=== PATIENT | female | born 1955 | race Caucasian/White ===

== ENCOUNTER 2017-01-06 03:52 | Emergency (ER) | payer OTHER, MEDICARE | END 2017-01-06 05:22 | disposition home or self-care (01) | LOC: D.ER 03:52 | DX: R10.9 Unspecified abdominal pain (principal); R11.10 Vomiting, unspecified; C53.9 Malignant neoplasm of cervix uteri, unspecified; F32.9 Major depressive disorder, single episode, unspecified; G47.00 Insomnia, unspecified ==

== ENCOUNTER 2017-01-11 09:01 | Observation (INO) | payer OTHER, MEDICARE ==
[~2017-01-11] VITALS: Ht 162.6 cm; Wt 75.9 kg
--- NOTE | ~2017-01-11 | OP ---
PATIENT NAME: BIENVENIDO AGUSTIN MEDICAL RECORD: [id number] :51 LOCATION:D.M2 D.2118 ADMISSION DATE:01/11/17 SURGEON: RICARDO LAWRENCE MD DATE OF OPERATION: 01/13/2017 PROCEDURE: EGD with biopsy and colonoscopy with polypectomy. INDICATIONS: Ms. Agustin is a 61-year-old woman with a history of Parkinson's with a brain stimulator and a history of gastric bypass, who presented with symptoms of nausea, vomiting and abdominal pain. Her abdominal pain has been primarily left upper quadrant of the abdomen. She had a recent hospitalization at [facility] for 10 days, had a workup that was nondiagnostic for pain. She had had a recent outpatient abdominal series and CT scan of the abdomen and pelvis that were negative for any acute findings. She presents for inpatient EGD and colonoscopy. PREMEDICATIONS: Total IV anesthesia (propofol 560 mg). INSTRUMENT: Olympus video gastroscope and Olympus video colonoscope. PROCEDURE AND FINDINGS: After receiving informed consent, Ms. Agustin 's posterior pharynx was anesthetized with Cetacaine spray. She was placed in left lateral decubitus position, sedated as per anesthesia. After achieving an adequate level of sedation, gastroscope was introduced per orally and advanced to the duodenum without difficulty. In the distal esophagus, the Z line was irregular in nature, suggestive of acid reflux and the lower third of the esophagus was biopsied. A small hiatal hernia was noted with gastric pouch, unremarkable mucosa without erythema or ulcers and the anastomosis with a small bowel was likewise unremarkable. Gastric pouch biopsies were obtained to rule out microscopic disease. She had 2 arms of small bowel continuous with the gastric bypass, suggestive of a Billroth II. Small bowel was biopsied in both arms of small bowel. Gastroscope was then withdrawn. She is prepared for colonoscopy. Digital rectal exam was performed that showed no external hemorrhoidal tags, fissures or fistulas, normal sphincter tone, no palpable rectal masses. Colonoscope was introduced per rectally and advanced to the cecum without difficulty. The cecum, IC valve, and appendiceal orifice were identified and appeared normal. As the colonoscope was withdrawn, careful inspection was made of the mari of the colon. Overall mucosa had normal vascular and fold pattern. There are a few diverticula seen scattered in the sigmoid colon, but no signs of diverticulitis. In the distal sigmoid colon, was a 0.5 cm sessile polyp removed with hot biopsy forcep technique. Retroflexion in the rectum showed a small anal tag. A fair to good prep was present. Ms. Agustin tolerated the procedure well, no immediate complications. ASSESSMENT: 1. Irregular Z-line suggestive of gastroesophageal reflux disease, status post esophageal biopsy. 2. Small hiatal hernia. 3. Status post gastric bypass. 4. Mild sigmoid diverticulosis coli without evidence of diverticulitis. 5. Sigmoid polyp. 6. Small anal tag. 7. No obvious upper or lower gastrointestinal etiology to explain abdominal OPERATIVE REPORT [id number] CHANDU AGUSTINTHIA pain, possibly secondary to adhesions. RECOMMENDATIONS: 1. Avoid aspirin, nonsteroidal anti-inflammatory drugs for 14 days post polypectomy. 2. Follow up histopathology. 3. Surgical consultation regarding abdominal pain and possibility of adhesions as a etiology. TRANSINT:[id number] Voice Confirmation ID: [id number] DOCUMENT ID: [id number] RICARDO LAWRENCE MD CC: VALDO PALACIO MD [id number] DICTATION DATE: 01/13/171734 PLASMA PROCESSOR: 01/14/17 0226 ADM IN [facility] [address] [place] [address]
[2017-01-11 09:34] LABS: BASOPHILS 0.4 % (0-2); HEMOGLOBIN 12.3 g/dL (12-16); IMMATURE GRANULOCYTES 0.1 % (0-5); LYMPHOCYTES 34.4 % (15-50); MCH 31.1 pg (26.0-34.0); MCHC 32.4 g/dL (31.0-37.0); MEAN PLATELET VOLUME 9.6 fL (7.4-10.4); MONOCYTES 11.5 % (2-11); NEUTROPHILS 51.6 % (40-80); PLATELET COUNT 341 10x3/uL (130-400); RBC 3.96 10x6/uL (4.00-5.40); RDW 13.6 % (11.5-14.5); WBC 7.4 10x3/uL (4.8-10.8)
[2017-01-11 10:10] LABS: ANION GAP 18.4 mmol/L (8-16); BILIRUBIN - TOTAL 0.42 mg/dL (0.2-1.3); CALCIUM 9.6 mg/dL (8.5-10.1); CARBON DIOXIDE 24.7 mmol/L (21.0-32.0); CREATININE - SERUM 0.9 mg/dL (0.6-1.3); POTASSIUM - SERUM 4.1 mmol/L (3.5-5.1); PROTEIN - SERUM 7.5 g/dL (6.4-8.2)
[2017-01-11 11:27] LABS: APPEARANCE HAZY (CLEAR); BILIRUBIN NEGATIVE (NEGATIVE); COLOR YELLOW (YELLOW); GLUCOSE NEGATIVE (NEGATIVE); KETONE NEGATIVE (NEGATIVE); LEUKOCYTE ESTERASE 2+ (NEGATIVE); NITRITE NEGATIVE (NEGATIVE); PROTEIN NEGATIVE (NEGATIVE); SPECIFIC GRAVITY 1.015 (1.005-1.020); UROBILINOGEN NORMAL (NORMAL)
[2017-01-11 11:28] LABS: BACTERIA FEW /hpf (NONE SEEN); EPITHELIAL CELLS 0-5 /hpf (0-5); RED CELLS - URINE 0-5 /hpf (0-5)
--- NOTE | 2017-01-11 14:58 | NUR ---
TRANSFER FROM ER BY STRETCHER. OREINTED TO ROOM. CALL LIGHT IN REACH. WILL CONT. PLAN OF CARE.
[2017-01-11] MEDS ORDERED: PROZAC20 MG PO (15:14)
[2017-01-11] MEDS ORDERED: SINEMET 25-1001 EACH PO (15:15)
[2017-01-11] MEDS ORDERED: REMERON30 MG PO (15:16)
[2017-01-11] MEDS ORDERED: REQUIP XL2 MG PO (15:16)
[2017-01-11] MEDS ORDERED: XANAX1 MG PO (15:17)
[2017-01-11] MEDS ORDERED: AMITIZA24 MCG PO (15:17)
[2017-01-11 15:27] VITALS: BP 136/88; BMI 27.3
--- NOTE | 2017-01-11 15:49 | NUR ---
BILAT SCD APPLYED.
[2017-01-11 21:27] VITALS: BP 161/62
[2017-01-12 01:46] VITALS: BP 137/75
[2017-01-12 06:04] LABS: BASOPHILS 0.4 % (0-2); EOSINOPHILS 1.6 % (0-7); HEMATOCRIT 33.6 % (36.0-48.0); HEMOGLOBIN 10.7 g/dL (12-16); IMMATURE GRANULOCYTES 0.2 % (0-5); LYMPHOCYTES 20.2 % (15-50); MCH 30.7 pg (26.0-34.0); MCHC 31.8 g/dL (31.0-37.0); MCV 96.3 fL (80.0-100.0); MEAN PLATELET VOLUME 9.3 fL (7.4-10.4); MONOCYTES 12.8 % (2-11); NEUTROPHILS 64.8 % (40-80); RBC 3.49 10x6/uL (4.00-5.40); RDW 13.7 % (11.5-14.5)
[2017-01-12 06:14] LABS: PLATELET COUNT 254 10x3/uL (130-400)
[2017-01-12 06:24] VITALS: BP 136/74
[2017-01-12 06:30] LABS: ALBUMIN 3.2 g/dL (3.4-5.0); ALKALINE PHOSPHATASE 109 U/L (46-116); ALT (SGPT) 12 U/L (10-68); BILIRUBIN - TOTAL 0.39 mg/dL (0.2-1.3); CALC OSMOLALITY 281 mosm/kg (275-300); CALCIUM 8.7 mg/dL (8.5-10.1); CARBON DIOXIDE 27.8 mmol/L (21.0-32.0); CHLORIDE - SERUM 106 mmol/L (98-107); CREATININE - SERUM 0.7 mg/dL (0.6-1.3); GLUCOSE 107 mg/dL (74-106); POTASSIUM - SERUM 3.9 mmol/L (3.5-5.1); PROTEIN - SERUM 5.9 g/dL (6.4-8.2); SODIUM 142 mmol/L (136-145); UREA NITROGEN 11 mg/dL (7-18); eGFR NON AFRICAN AMERICAN 90 mL/min (90-120)
[2017-01-12 08:00] VITALS: BP 130/62
[2017-01-12 09:31] VITALS: Ht 162.6 cm; Wt 75.9 kg
--- NOTE | 2017-01-12 11:22 | NUR ---
IV ACCESS-22 GAUGE INSERTED IN RIGHT HAND FOR ACCESS. YARELY SALGADO RN
--- NOTE | 2017-01-12 11:44 | NUR ---
IV STARTED TO LEFT WRIST BY YARELY OCAMPO. LINE IS PATENT.
[2017-01-12 11:59] VITALS: BP 115/67
[2017-01-12 15:53] VITALS: BP 112/54
--- NOTE | 2017-01-12 17:23 | NUR ---
CONSENTS SIGNED FOR EGD/COLONOSCPY.
[2017-01-12 21:07] VITALS: BP 139/876
[2017-01-13 01:38] VITALS: BP 103/59
[2017-01-13 05:32] VITALS: BP 115/66
[2017-01-13 05:48] LABS: BASOPHILS 0.4 % (0-2); EOSINOPHILS 2.3 % (0-7); HEMATOCRIT 30.1 % (36.0-48.0); HEMOGLOBIN 9.9 g/dL (12-16); IMMATURE GRANULOCYTES 0.2 % (0-5); LYMPHOCYTES 32.2 % (15-50); MCH 31.3 pg (26.0-34.0); MCHC 32.9 g/dL (31.0-37.0); MCV 95.3 fL (80.0-100.0); MEAN PLATELET VOLUME 9.3 fL (7.4-10.4); MONOCYTES 10.6 % (2-11); NEUTROPHILS 54.3 % (40-80); PLATELET COUNT 251 10x3/uL (130-400); RBC 3.16 10x6/uL (4.00-5.40); RDW 13.4 % (11.5-14.5); WBC 5.3 10x3/uL (4.8-10.8)
[2017-01-13 06:26] LABS: ALBUMIN 2.8 g/dL (3.4-5.0); ALKALINE PHOSPHATASE 99 U/L (46-116); ALT (SGPT) 11 U/L (10-68); BILIRUBIN - TOTAL 0.37 mg/dL (0.2-1.3); CARBON DIOXIDE 27.1 mmol/L (21.0-32.0); CHLORIDE - SERUM 107 mmol/L (98-107); CREATININE - SERUM 0.7 mg/dL (0.6-1.3); GLUCOSE 95 mg/dL (74-106); POTASSIUM - SERUM 3.6 mmol/L (3.5-5.1); PROTEIN - SERUM 5.3 g/dL (6.4-8.2); SODIUM 143 mmol/L (136-145); eGFR NON AFRICAN AMERICAN 90 mL/min (90-120)
[2017-01-13 06:27] LABS: CALC OSMOLALITY 281 mosm/kg (275-300); UREA NITROGEN 5 mg/dL (7-18)
[2017-01-13 08:00] VITALS: BP 127/58
[2017-01-13 12:00] VITALS: BP 145/59
[2017-01-13 15:59] VITALS: BP 139/80
--- NOTE | 2017-01-13 16:04 | NUR ---
LEAVING FOR GI LAB BY DHEERAJ.
--- NOTE | 2017-01-13 17:26 | NUR ---
1725 REPORT PHONED TO NORMA, TO 7372.
--- NOTE | 2017-01-13 17:39 | NUR ---
BACK FROM EGD. DIET AND MEDS RESUMED.
[2017-01-13 20:44] VITALS: BP 125/62
--- NOTE | 2017-01-14 00:15 | NUR ---
PT RESTING WELL, NO CHANGES NOTED IN ASSESSMENT. NO NEEDS VOICED. CALL LIGHT WITHIN REACH. WILL CONT TO MONITOR.
[2017-01-14 03:47] VITALS: BP 114/48
[2017-01-14 05:37] LABS: BASOPHILS 0.3 % (0-2); EOSINOPHILS 1.7 % (0-7); HEMATOCRIT 31.7 % (36.0-48.0); HEMOGLOBIN 10.2 g/dL (12-16); IMMATURE GRANULOCYTES 0.2 % (0-5); LYMPHOCYTES 28.8 % (15-50); MCH 30.5 pg (26.0-34.0); MCHC 32.2 g/dL (31.0-37.0); MCV 94.9 fL (80.0-100.0); MONOCYTES 9.7 % (2-11); NEUTROPHILS 59.3 % (40-80); PLATELET COUNT 244 10x3/uL (130-400); RBC 3.34 10x6/uL (4.00-5.40); RDW 13.5 % (11.5-14.5); WBC 6.4 10x3/uL (4.8-10.8)
[2017-01-14 06:28] LABS: ALBUMIN 2.8 g/dL (3.4-5.0); ALKALINE PHOSPHATASE 100 U/L (46-116); ALT (SGPT) 15 U/L (10-68); CALC OSMOLALITY 281 mosm/kg (275-300); CALCIUM 8.2 mg/dL (8.5-10.1); CHLORIDE - SERUM 106 mmol/L (98-107); CREATININE - SERUM 0.7 mg/dL (0.6-1.3); GLUCOSE 88 mg/dL (74-106); POTASSIUM - SERUM 3.3 mmol/L (3.5-5.1); PROTEIN - SERUM 5.5 g/dL (6.4-8.2); SODIUM 143 mmol/L (136-145); UREA NITROGEN 7 mg/dL (7-18); eGFR NON AFRICAN AMERICAN 90 mL/min (90-120)
[2017-01-14 08:41] VITALS: BP 133/70
--- NOTE | 2017-01-14 10:39 | NUR ---
TELEMETRY SR. UP AMBULATING HALLWAY. GAIT STEADY
[2017-01-14] MEDS ORDERED: MIRALAX17 GM PO (11:28)
--- NOTE | 2017-01-14 13:27 | NUR ---
IV AND TELEMETRY DCD. DC PLANS GIVEN. UNDERSTANDING VOICED. ESCORTED TO CAR BY W/C.
== END 2017-01-14 13:39 | disposition home or self-care (01) ==
LOC: D.ER 09:01 → D.M2 14:18 → OBSVTIME 14:18 → D.M2 14:18
PROVIDERS: Emergency Medicine Emergency Medical Services; ADMIT Family Medicine
DX: D12.5 Benign neoplasm of sigmoid colon (principal); K44.9 Diaphragmatic hernia without obstruction or gangrene; K57.90 Diverticulosis of intestine, part unspecified, without perforation or abscess without bleeding; K64.4 Residual hemorrhoidal skin tags; F41.9 Anxiety disorder, unspecified; F32.9 Major depressive disorder, single episode, unspecified; G20 Parkinson's disease; D64.9 Anemia, unspecified

== ENCOUNTER 2017-09-23 16:14 | Emergency (ER) | payer OTHER, MEDICARE ==
[2017-01-12 09:31] VITALS: BMI 27.3
[~2017-09-23 16:14] MED LIST: AMITIZA24 MCG PO; MIRALAX17 GM PO; PROZAC20 MG PO; REMERON30 MG PO; REQUIP XL2 MG PO; SINEMET 25-1001 EACH PO; XANAX1 MG PO
[2017-09-23 16:57] LABS: BASOPHILS 0.4 % (0-2); HEMATOCRIT 31.8 % (36.0-48.0); HEMOGLOBIN 9.9 g/dL (12-16); IMMATURE GRANULOCYTES 0.4 % (0-5); LYMPHOCYTES 19.3 % (15-50); MCH 26.8 pg (26.0-34.0); MCHC 31.1 g/dL (31.0-37.0); MCV 85.9 fL (80.0-100.0); MEAN PLATELET VOLUME 8.8 fL (7.4-10.4); MONOCYTES 13.3 % (2-11); NEUTROPHILS 64.6 % (40-80)
[2017-09-23 16:58] LABS: PLATELET COUNT 366 10x3/uL (130-400)
[2017-09-23 17:08] LABS: APTT 29.8 SECONDS (22.8-39.4); INR 0.89 (0.85-1.17); PROTIME 11.7 SECONDS (11.6-15.0)
[2017-09-23 17:20] LABS: ALBUMIN 3.9 g/dL (3.4-5.0); ANION GAP 12.2 mmol/L (8-16); BILIRUBIN - TOTAL 0.4 mg/dL (0.2-1.3); CALCIUM 8.6 mg/dL (8.5-10.1); CARBON DIOXIDE 27.5 mmol/L (21.0-32.0); CREATININE - SERUM 0.9 mg/dL (0.6-1.3); POTASSIUM - SERUM 4.7 mmol/L (3.5-5.1); PROTEIN - SERUM 6.9 g/dL (6.4-8.2)
[2017-09-23 17:59] LABS: CKMB 1.2 U/L (0.0-3.6); CREATINE KINASE 76 UL (21-215); PRO BNP 32 pg/mL (0-125)
[2017-09-23 18:04] LABS: TROPONIN-I < 0.017 ng/mL (0.000-0.060)
[2017-09-23 19:22] LABS: UDS - AMPHET NEGATIVE QUAL (NEGATIVE); UDS - BARB NEGATIVE QUAL (NEGATIVE); UDS - BENZO POSITIVE QUAL (NEGATIVE); UDS - COCAINE NEGATIVE QUAL (NEGATIVE); UDS - OPIATE NEGATIVE QUAL (NEGATIVE); UDS - PCP NEGATIVE QUAL (NEGATIVE); UDS - THC POSITIVE QUAL (NEGATIVE)
[2017-09-23 19:27] LABS: APPEARANCE CLOUDY (CLEAR); BILIRUBIN NEGATIVE (NEGATIVE); COLOR YELLOW (YELLOW); GLUCOSE NEGATIVE (NEGATIVE); KETONE NEGATIVE (NEGATIVE); NITRITE NEGATIVE (NEGATIVE); PROTEIN NEGATIVE (NEGATIVE); UROBILINOGEN NORMAL (NORMAL)
[2017-09-23 19:29] LABS: EPITHELIAL CELLS 0-5 /hpf (0-5); MUCUS <1+ /lpf (NONE SEEN); WHITE CELLS - URINE 0-5 /hpf (0-5)
[2017-09-23 19:30] LABS: BACTERIA MODERATE /hpf (NONE SEEN); RED CELLS - URINE 0-5 /hpf (0-5)
== END 2017-09-23 21:36 | disposition short-term general hospital (02) ==
LOC: D.ER 16:14
PROVIDERS: Family Medicine
DX: I63.9 Cerebral infarction, unspecified (principal); Z85.41 Personal history of malignant neoplasm of cervix uteri; R53.1 Weakness

== ENCOUNTER 2017-10-24 10:35 | Emergency (ER) | payer OTHER, MEDICARE ==
[2017-01-12 09:31] VITALS: BMI 27.3
[2017-10-24 11:10] LABS: BASOPHILS 0.7 % (0-2); EOSINOPHILS 4.1 % (0-7); HEMATOCRIT 33.3 % (36.0-48.0); IMMATURE GRANULOCYTES 0.2 % (0-5); MCH 25.6 pg (26.0-34.0); MCV 85.2 fL (80.0-100.0); MEAN PLATELET VOLUME 9.1 fL (7.4-10.4); MONOCYTES 12.7 % (2-11); NEUTROPHILS 44.3 % (40-80); PLATELET COUNT 340 10x3/uL (130-400); RBC 3.91 10x6/uL (4.00-5.40); RDW 15.4 % (11.5-14.5); WBC 5.6 10x3/uL (4.8-10.8)
[2017-10-24 11:21] LABS: INR 0.86 (0.85-1.17); PROTIME 11.4 SECONDS (11.6-15.0)
[2017-10-24 11:23] LABS: D-DIMER-QUANTITATIVE < 0.27 ug/mLFEU (0.20-0.54)
[2017-10-24 11:25] LABS: ALBUMIN 3.7 g/dL (3.4-5.0); ALKALINE PHOSPHATASE 166 U/L (46-116); ALT (SGPT) 21 U/L (10-68); BILIRUBIN - TOTAL 0.45 mg/dL (0.2-1.3); CALC OSMOLALITY 280 mosm/kg (275-300); CARBON DIOXIDE 27.3 mmol/L (21.0-32.0); CHLORIDE - SERUM 104 mmol/L (98-107); CREATININE - SERUM 0.8 mg/dL (0.6-1.3); GLUCOSE 92 mg/dL (74-106); POTASSIUM - SERUM 4.4 mmol/L (3.5-5.1); PROTEIN - SERUM 7.1 g/dL (6.4-8.2); SODIUM 140 mmol/L (136-145); UREA NITROGEN 18 mg/dL (7-18); eGFR NON AFRICAN AMERICAN 76 mL/min (90-120)
[2017-10-24 11:37] LABS: CKMB 0.5 U/L (0.0-3.6); CREATINE KINASE 68 UL (21-215); THYROID STIMULATING HORMONE 0.52 uIU/mL (0.36-3.74); TROPONIN-I < 0.017 ng/mL (0.000-0.060)
== END 2017-10-24 19:24 | disposition home or self-care (01) ==
LOC: D.ER 10:35
PROVIDERS: Family Medicine
DX: I69.354 Hemiplegia and hemiparesis following cerebral infarction affecting left non-dominant side (principal); R47.81 Slurred speech; Z85.41 Personal history of malignant neoplasm of cervix uteri

== ENCOUNTER 2017-11-23 12:19 | Emergency (ER) | payer OTHER, MEDICARE ==
[2017-01-12 09:31] VITALS: BMI 27.3
[2017-11-23 13:30] LABS: APPEARANCE CLEAR (CLEAR); BACTERIA FEW /hpf (NONE SEEN); BILIRUBIN NEGATIVE (NEGATIVE); COLOR YELLOW (YELLOW); EPITHELIAL CELLS 0-5 /hpf (0-5); GLUCOSE NEGATIVE (NEGATIVE); KETONE NEGATIVE (NEGATIVE); MUCUS <1+ /lpf (NONE SEEN); NITRITE NEGATIVE (NEGATIVE); PROTEIN NEGATIVE (NEGATIVE); RED CELLS - URINE OCC /hpf (0-5); SPECIFIC GRAVITY 1.015 (1.005-1.020); UROBILINOGEN NORMAL (NORMAL); WHITE CELLS - URINE 0-5 /hpf (0-5)
[2017-11-23 13:58] LABS: BASOPHILS 0.3 % (0-2); EOSINOPHILS 1.3 % (0-7); HEMATOCRIT 31.9 % (36.0-48.0); IMMATURE GRANULOCYTES 0.3 % (0-5); LYMPHOCYTES 29.9 % (15-50); MCH 25.3 pg (26.0-34.0); MCHC 31.3 g/dL (31.0-37.0); MCV 80.8 fL (80.0-100.0); MEAN PLATELET VOLUME 8.8 fL (7.4-10.4); MONOCYTES 12.1 % (2-11); NEUTROPHILS 56.1 % (40-80); PLATELET COUNT 314 10x3/uL (130-400); RBC 3.95 10x6/uL (4.00-5.40); RDW 15.5 % (11.5-14.5); WBC 6.9 10x3/uL (4.8-10.8)
[2017-11-23 14:15] LABS: ALBUMIN 4.1 g/dL (3.4-5.0); ANION GAP 13.3 mmol/L (8-16); BILIRUBIN - TOTAL 0.42 mg/dL (0.2-1.3); CALCIUM 9.2 mg/dL (8.5-10.1); CARBON DIOXIDE 27.9 mmol/L (21.0-32.0); CREATININE - SERUM 0.9 mg/dL (0.6-1.3); POTASSIUM - SERUM 4.2 mmol/L (3.5-5.1); PROTEIN - SERUM 7.5 g/dL (6.4-8.2)
== END 2017-11-23 16:33 | disposition home or self-care (01) ==
LOC: D.ER 12:19
PROVIDERS: Family Medicine
DX: R10.9 Unspecified abdominal pain (principal); Z85.41 Personal history of malignant neoplasm of cervix uteri; Z86.73 Personal history of transient ischemic attack (TIA), and cerebral infarction without residual deficits

== ENCOUNTER 2017-11-24 23:42 | Emergency (ER) | payer OTHER, MEDICARE ==
[2017-01-12 09:31] VITALS: BMI 27.3
[2017-11-25 00:52] LABS: BASOPHILS 0.6 % (0-2); EOSINOPHILS 1.2 % (0-7); HEMATOCRIT 31.6 % (36.0-48.0); HEMOGLOBIN 9.7 g/dL (12-16); IMMATURE GRANULOCYTES 0.1 % (0-5); LYMPHOCYTES 24.6 % (15-50); MCHC 30.7 g/dL (31.0-37.0); MCV 81.4 fL (80.0-100.0); MEAN PLATELET VOLUME 8.8 fL (7.4-10.4); MONOCYTES 10.4 % (2-11); NEUTROPHILS 63.1 % (40-80); PLATELET COUNT 311 10x3/uL (130-400); RBC 3.88 10x6/uL (4.00-5.40); RDW 15.9 % (11.5-14.5); WBC 6.8 10x3/uL (4.8-10.8)
[2017-11-25 00:59] LABS: ALBUMIN 3.8 g/dL (3.4-5.0); ALKALINE PHOSPHATASE 166 U/L (46-116); ALT (SGPT) 29 U/L (10-68); AMYLASE - SERUM 171 U/L (25-115); CALC OSMOLALITY 283 mosm/kg (275-300); CARBON DIOXIDE 28.2 mmol/L (21.0-32.0); CHLORIDE - SERUM 103 mmol/L (98-107); CREATININE - SERUM 0.8 mg/dL (0.6-1.3); GLUCOSE 126 mg/dL (74-106); LIPASE 225 U/L (73-393); POTASSIUM - SERUM 4.1 mmol/L (3.5-5.1); PROTEIN - SERUM 7.1 g/dL (6.4-8.2); SODIUM 142 mmol/L (136-145); UREA NITROGEN 10 mg/dL (7-18); eGFR NON AFRICAN AMERICAN 76 mL/min (90-120)
[2017-11-25 01:55] LABS: APPEARANCE CLEAR (CLEAR); BILIRUBIN NEGATIVE (NEGATIVE); COLOR YELLOW (YELLOW); GLUCOSE 100 mg/dL (NEGATIVE); KETONE NEGATIVE (NEGATIVE); NITRITE NEGATIVE (NEGATIVE); PROTEIN NEGATIVE (NEGATIVE); UROBILINOGEN NORMAL (NORMAL)
[2017-11-25 01:56] LABS: BACTERIA MODERATE /hpf (NONE SEEN); EPITHELIAL CELLS 0-5 /hpf (0-5); RED CELLS - URINE 0-5 /hpf (0-5)
[2017-11-26] MEDS ORDERED: LEVAQUIN750 MG PO (21:37)
[2017-11-26] MEDS ORDERED: NEURONTIN 300300 MG PO (21:37)
[2017-11-26] MEDS ORDERED: PEPCID40 MG PO (21:38)
== END 2017-11-25 04:15 | disposition home or self-care (01) ==
LOC: D.ER 23:42
PROVIDERS: Family Medicine
DX: R10.9 Unspecified abdominal pain (principal); Z85.41 Personal history of malignant neoplasm of cervix uteri; Z86.73 Personal history of transient ischemic attack (TIA), and cerebral infarction without residual deficits

== ENCOUNTER 2017-11-26 16:45 | Inpatient (IN) | payer OTHER, MEDICARE ==
[~2017-11-26] VITALS: Ht 162.6 cm; Wt 75.4 kg
[2017-11-26 17:47] LABS: BASOPHILS 0.4 % (0-2); EOSINOPHILS 1.6 % (0-7); HEMATOCRIT 28.7 % (36.0-48.0); HEMOGLOBIN 8.8 g/dL (12-16); IMMATURE GRANULOCYTES 0.2 % (0-5); LYMPHOCYTES 27.6 % (15-50); MCH 24.9 pg (26.0-34.0); MCHC 30.7 g/dL (31.0-37.0); MCV 81.3 fL (80.0-100.0); MEAN PLATELET VOLUME 8.7 fL (7.4-10.4); MONOCYTES 14.3 % (2-11); NEUTROPHILS 55.9 % (40-80); PLATELET COUNT 267 10x3/uL (130-400); RBC 3.53 10x6/uL (4.00-5.40); RDW 16.1 % (11.5-14.5); WBC 5.5 10x3/uL (4.8-10.8)
[2017-11-26 18:04] LABS: ALBUMIN 3.4 g/dL (3.4-5.0); ANION GAP 13.4 mmol/L (8-16); BILIRUBIN - TOTAL 0.4 mg/dL (0.2-1.3); POTASSIUM - SERUM 4.4 mmol/L (3.5-5.1); PROTEIN - SERUM 6.5 g/dL (6.4-8.2)
[2017-11-26] MEDS ORDERED: LEVAQUIN750 MG PO (21:37)
[2017-11-26] MEDS ORDERED: NEURONTIN 300300 MG PO (21:37)
[2017-11-26] MEDS ORDERED: PEPCID40 MG PO (21:38)
[2017-11-27] VITALS (7 sets, daily range): BP systolic 107–136; BP diastolic 56–67; BMI 28.4
[2017-11-27 05:40] LABS: BASOPHILS 0.5 % (0-2); EOSINOPHILS 2.6 % (0-7); HEMATOCRIT 27.5 % (36.0-48.0); HEMOGLOBIN 8.3 g/dL (12-16); LYMPHOCYTES 51.4 % (15-50); MCH 24.8 pg (26.0-34.0); MCHC 30.2 g/dL (31.0-37.0); MCV 82.1 fL (80.0-100.0); MEAN PLATELET VOLUME 9.2 fL (7.4-10.4); MONOCYTES 15.5 % (2-11); PLATELET COUNT 264 10x3/uL (130-400); RBC 3.35 10x6/uL (4.00-5.40); RDW 16.2 % (11.5-14.5); WBC 4.3 10x3/uL (4.8-10.8)
[2017-11-27 06:10] LABS: ANION GAP 9.5 mmol/L (8-16); BILIRUBIN - TOTAL 0.4 mg/dL (0.2-1.3); CALCIUM 8.4 mg/dL (8.5-10.1); CARBON DIOXIDE 30.4 mmol/L (21.0-32.0); CREATININE - SERUM 0.9 mg/dL (0.6-1.3); POTASSIUM - SERUM 3.9 mmol/L (3.5-5.1); PROTEIN - SERUM 5.9 g/dL (6.4-8.2)
[2017-11-27 13:57] LABS: APPEARANCE CLEAR (CLEAR); BILIRUBIN NEGATIVE (NEGATIVE); COLOR YELLOW (YELLOW); GLUCOSE NEGATIVE (NEGATIVE); KETONE SMALL mg/dL (NEGATIVE); NITRITE NEGATIVE (NEGATIVE); PROTEIN NEGATIVE (NEGATIVE); UROBILINOGEN NORMAL (NORMAL)
[2017-11-27 14:00] LABS: BACTERIA FEW /hpf (NONE SEEN); EPITHELIAL CELLS 0-5 /hpf (0-5); RED CELLS - URINE OCC /hpf (0-5); WHITE CELLS - URINE 0-5 /hpf (0-5)
[2017-11-28] VITALS (7 sets, daily range): BP systolic 93–176; BP diastolic 41–90
[2017-11-28 04:58] LABS: BASOPHILS 0.3 % (0-2); EOSINOPHILS 0.5 % (0-7); HEMATOCRIT 30.9 % (36.0-48.0); HEMOGLOBIN 9.4 g/dL (12-16); IMMATURE GRANULOCYTES 0.1 % (0-5); LYMPHOCYTES 13.5 % (15-50); MCHC 30.4 g/dL (31.0-37.0); MCV 82.2 fL (80.0-100.0); MEAN PLATELET VOLUME 8.8 fL (7.4-10.4); MONOCYTES 8.4 % (2-11); NEUTROPHILS 77.2 % (40-80); PLATELET COUNT 244 10x3/uL (130-400); RBC 3.76 10x6/uL (4.00-5.40)
[2017-11-28 05:00] LABS: WBC 7.9 10x3/uL (4.8-10.8)
[2017-11-28 05:22] LABS: ALBUMIN 3.5 g/dL (3.4-5.0); ALKALINE PHOSPHATASE 148 U/L (46-116); ALT (SGPT) 29 U/L (10-68); AMYLASE - SERUM 59 U/L (25-115); BILIRUBIN - TOTAL 0.59 mg/dL (0.2-1.3); CALC OSMOLALITY 280 mosm/kg (275-300); CALCIUM 8.6 mg/dL (8.5-10.1); CARBON DIOXIDE 26.5 mmol/L (21.0-32.0); CHLORIDE - SERUM 102 mmol/L (98-107); CREATININE - SERUM 0.8 mg/dL (0.6-1.3); GLUCOSE 109 mg/dL (74-106); LIPASE 254 U/L (73-393); POTASSIUM - SERUM 3.4 mmol/L (3.5-5.1); PROTEIN - SERUM 6.7 g/dL (6.4-8.2); SODIUM 141 mmol/L (136-145); UREA NITROGEN 9 mg/dL (7-18); eGFR NON AFRICAN AMERICAN 76 mL/min (90-120)
[2017-11-29 00:30] VITALS: BP 120/64
[2017-11-29 04:30] VITALS: BP 151/67
[2017-11-29 05:08] LABS: BASOPHILS 0.3 % (0-2); EOSINOPHILS 0.7 % (0-7); HEMATOCRIT 30.1 % (36.0-48.0); HEMOGLOBIN 9.3 g/dL (12-16); IMMATURE GRANULOCYTES 0.1 % (0-5); LYMPHOCYTES 21.3 % (15-50); MCHC 30.9 g/dL (31.0-37.0); MCV 80.9 fL (80.0-100.0); MEAN PLATELET VOLUME 9.1 fL (7.4-10.4); MONOCYTES 13.8 % (2-11); NEUTROPHILS 63.8 % (40-80); PLATELET COUNT 262 10x3/uL (130-400); RBC 3.72 10x6/uL (4.00-5.40); RDW 16.3 % (11.5-14.5); WBC 7.3 10x3/uL (4.8-10.8)
[2017-11-29 05:38] LABS: ALBUMIN 3.6 g/dL (3.4-5.0); ALKALINE PHOSPHATASE 142 U/L (46-116); ALT (SGPT) 27 U/L (10-68); BILIRUBIN - TOTAL 0.56 mg/dL (0.2-1.3); CALC OSMOLALITY 277 mosm/kg (275-300); CALCIUM 8.6 mg/dL (8.5-10.1); CARBON DIOXIDE 27.4 mmol/L (21.0-32.0); CHLORIDE - SERUM 102 mmol/L (98-107); CREATININE - SERUM 0.7 mg/dL (0.6-1.3); GLUCOSE 124 mg/dL (74-106); POTASSIUM - SERUM 3.5 mmol/L (3.5-5.1); PROTEIN - SERUM 6.7 g/dL (6.4-8.2); SODIUM 140 mmol/L (136-145); UREA NITROGEN 7 mg/dL (7-18); eGFR NON AFRICAN AMERICAN 89 mL/min (90-120)
[2017-11-29 08:21] VITALS: BP 136/58
[2017-11-29 12:15] VITALS: BP 171/69
[2017-11-29 12:28] VITALS: Ht 162.6 cm; Wt 75.4 kg
[2017-11-29 17:24] VITALS: BP 143/69
[2017-11-29 20:00] VITALS: BP 139/64
[2017-11-30 06:46] VITALS: BP 151/58
[2017-11-30 08:51] VITALS: BP 142/73
[2017-11-30 17:28] VITALS: BP 143/72
[2017-11-30 20:00] VITALS: BP 157/70
[2017-12-01] VITALS: BP 131/61
[2017-12-01 04:00] VITALS: BP 140/66
[2017-12-01 06:05] LABS: BASOPHILS 0.4 % (0-2); EOSINOPHILS 0.9 % (0-7); HEMATOCRIT 28.9 % (36.0-48.0); IMMATURE GRANULOCYTES 0.1 % (0-5); LYMPHOCYTES 18.5 % (15-50); MCH 25.3 pg (26.0-34.0); MCHC 31.1 g/dL (31.0-37.0); MCV 81.2 fL (80.0-100.0); MEAN PLATELET VOLUME 9.2 fL (7.4-10.4); MONOCYTES 13.7 % (2-11); NEUTROPHILS 66.4 % (40-80); PLATELET COUNT 279 10x3/uL (130-400); RBC 3.56 10x6/uL (4.00-5.40); RDW 16.4 % (11.5-14.5); WBC 6.9 10x3/uL (4.8-10.8)
[2017-12-01 06:15] LABS: % SATURATION 4 % (15-55); IRON 21 ug/dl (35-150); TOTAL IRON BIND CAPACITY 450 ug/dl (260-445); UNSAT IRON BIND CAPACITY 429 ug/dl (150-375)
[2017-12-01 06:20] LABS: ALBUMIN 3.6 g/dL (3.4-5.0); ALKALINE PHOSPHATASE 138 U/L (46-116); ALT (SGPT) 25 U/L (10-68); AMYLASE - SERUM 34 U/L (25-115); CALC OSMOLALITY 277 mosm/kg (275-300); CALCIUM 8.5 mg/dL (8.5-10.1); CARBON DIOXIDE 28.2 mmol/L (21.0-32.0); CHLORIDE - SERUM 101 mmol/L (98-107); CREATININE - SERUM 0.8 mg/dL (0.6-1.3); FERRITIN 9 ng/mL (3-244); GLUCOSE 111 mg/dL (74-106); LIPASE 199 U/L (73-393); POTASSIUM - SERUM 3.2 mmol/L (3.5-5.1); PROTEIN - SERUM 6.9 g/dL (6.4-8.2); SODIUM 140 mmol/L (136-145); UREA NITROGEN 8 mg/dL (7-18); eGFR NON AFRICAN AMERICAN 76 mL/min (90-120)
[2017-12-01 08:00] VITALS: BP 151/82
[2017-12-01 12:00] VITALS: BP 124/45
[2017-12-01 17:09] VITALS: BP 165/73
[2017-12-01 21:01] VITALS: BP 137/67
[2017-12-02 06:04] LABS: BASOPHILS 0.3 % (0-2); EOSINOPHILS 1.6 % (0-7); HEMOGLOBIN 7.8 g/dL (12-16); MCH 25.2 pg (26.0-34.0); MCHC 31.2 g/dL (31.0-37.0); MCV 80.9 fL (80.0-100.0); MEAN PLATELET VOLUME 9.6 fL (7.4-10.4); MONOCYTES 15.3 % (2-11); NEUTROPHILS 53.8 % (40-80); PLATELET COUNT 247 10x3/uL (130-400); RBC 3.09 10x6/uL (4.00-5.40); RDW 16.8 % (11.5-14.5); WBC 6.1 10x3/uL (4.8-10.8)
[2017-12-02 06:22] VITALS: BP 109/55
[2017-12-02 06:47] LABS: ALBUMIN 3.1 g/dL (3.4-5.0); ALKALINE PHOSPHATASE 120 U/L (46-116); ALT (SGPT) 22 U/L (10-68); CALC OSMOLALITY 279 mosm/kg (275-300); CALCIUM 8.5 mg/dL (8.5-10.1); CARBON DIOXIDE 29.1 mmol/L (21.0-32.0); CHLORIDE - SERUM 104 mmol/L (98-107); CREATININE - SERUM 0.7 mg/dL (0.6-1.3); GLUCOSE 106 mg/dL (74-106); PROTEIN - SERUM 5.8 g/dL (6.4-8.2); SODIUM 142 mmol/L (136-145); eGFR NON AFRICAN AMERICAN 89 mL/min (90-120)
[2017-12-02 06:48] LABS: UREA NITROGEN 5 mg/dL (7-18)
[2017-12-02 09:17] LABS: FOLATE (FOLIC ACID) - SERUM >20.0 ng/mL (>3.0)
[2017-12-02 11:40] VITALS: BP 137/67
[2017-12-02 16:48] VITALS: BP 122/60
[2017-12-02 22:13] VITALS: BP 144/70
[2017-12-03 01:26] VITALS: BP 138/70
[2017-12-03 05:00] VITALS: BP 145/74
[2017-12-03 08:38] VITALS: BP 122/68
[2017-12-03 11:40] VITALS: BP 127/54
[2017-12-03] MEDS ORDERED: AMITIZA8 MCG PO (12:38)
[2017-12-03] MEDS ORDERED: HYDROCODON-ACE1 EAC7 PO (13:44)
== END 2017-12-03 15:29 | disposition home or self-care (01) | DRG 378 ==
LOC: D.ER 16:45 → D.M2 20:29
PROVIDERS: Family Medicine; Internal Medicine Nephrology
PROC: 0DBA8ZX Excision of Jejunum, Via Natural or Artificial Opening Endoscopic, Diagnostic (ICD-10-PCS; principal; 2017-12-02)
PROC: 0DB78ZX Excision of Stomach, Pylorus, Via Natural or Artificial Opening Endoscopic, Diagnostic (ICD-10-PCS; 2017-12-02)
DX: K92.2 Gastrointestinal hemorrhage, unspecified (principal); K56.7 Ileus, unspecified; D62 Acute posthemorrhagic anemia; K25.9 Gastric ulcer, unspecified as acute or chronic, without hemorrhage or perforation; G20 Parkinson's disease; D50.9 Iron deficiency anemia, unspecified; F41.8 Other specified anxiety disorders; Z85.41 Personal history of malignant neoplasm of cervix uteri; Z72.0 Tobacco use; Z86.73 Personal history of transient ischemic attack (TIA), and cerebral infarction without residual deficits

== ENCOUNTER 2017-12-15 10:17 | Inpatient (IN) | payer OTHER, MEDICARE ==
[~2017-12-15] VITALS: Ht 162.6 cm; Wt 80.7 kg
--- NOTE | ~2017-12-15 | OP ---
PATIENT NAME: BIENVENIDO ROGERS MEDICAL RECORD: [id number] :51 LOCATION:D.[facility] D.2304 ADMISSION DATE:12/15/17 SURGEON: KIM HUGHSE MD DATE OF OPERATION: 01/25/2018 PREOPERATIVE DIAGNOSES: 1. Respiratory failure, on the ventilator. 2. Parkinson's disease. 3. Ischemic bowel, status post partial colectomy and colostomy. 4. Open abdominal wound. 5. Pneumonia. POSTOPERATIVE DIAGNOSES: 1. Respiratory failure, on the ventilator. 2. Parkinson's disease. 3. Ischemic bowel, status post partial colectomy and colostomy. 4. Open abdominal wound. 5. Pneumonia. PROCEDURE: An 8-Yemeni percutaneous tracheostomy tube placement. SURGEON: Kim Hughes MD REPORT OF PROCEDURE: The patient's neck was prepped and draped in sterile fashion. The indwelling endotracheal tube was cannulated with a bronchoscope. We pulled the endotracheal tube back to its most superior portion. A skin incision was made on the inferior aspect of the neck longitudinally. I found couple of rings below the cricopharyngeal space and inserted the Angiocath needle under direct visualization. Through this, the wire was advanced with ease. Over this wire, the dilator was placed followed by the white Rhino dilator. We then advanced the 8-Yemeni tracheostomy tube into position under direct visualization. This was then hooked up to the respirator. The tracheostomy was sutured down on all 4 sides using interrupted 2-0 Prolenes. COMPLICATIONS: None. CONDITION: Stable. ANESTHESIA: General endotracheal. BLOOD LOSS: 30 mL. TRANSINT:[id number] Voice Confirmation ID: [id number] DOCUMENT ID: [id number] KIM HUGHES MD at 1617 CC: [id number] DICTATION DATE: 01/25/18 1407 DIE OUT WORKER: 01/25/18 1445 ADM IN [place] [id number] [place] [address]
--- NOTE | ~2017-12-15 | CN ---
PATIENT NAME:BIENVENIDO AGUSTIN MEDICAL RECORD: [id number] : 51 LOCATION:ELEN.2304 ADMIT DATE: 12/15/17 ACCOUNT: [id number] CONSULTING PHYSICIAN: DIETER GAONA MD REFERRING PHYSICIAN: MILADIS BARKER MD DATE OF CONSULTATION: 01/08/2018 CONSULT REQUESTING PHYSICIAN: Liborio Hughes MD REASON FOR CONSULTATION: Vent management. HISTORY OF PRESENT ILLNESS: Ms. Agustin is a 62-year-old female who was initially admitted with GI bleed and severe anemia. The patient was not doing well. She was in liver failure as well as acute renal failure. The patient was taken to the OR and found out that she has perforated left colon with peritonitis. 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 The patient underwent partial colectomy, laparotomy, and colostomy. REVIEW OF SYSTEMS: Mainly in the history of present illness. PAST MEDICAL HISTORY: 1. Parkinson disease. 2. History of gastrointestinal bleed. 3. Anxiety and depression. PAST SURGICAL HISTORY: She has a gastric bypass surgery, brain stimulator placement for Parkinson disease. ALLERGIES: SHE IS ALLERGIC TO SULFA AND CODEINE. PRESENT MEDICATIONS: On Sonar.me is reviewed. PERSONAL AND SOCIAL HISTORY: She is an occasional drinker. FAMILY HISTORY: Noncontributory. PHYSICAL EXAMINATION: GENERAL: Now, the patient is orally intubated and sedated. VITAL SIGNS: The blood pressure 135/70, pulse is 95, respiration is 19, temperature 99.3, SPO2 is 94%. She is on assist control mechanical ventilation. HEENT: Conjunctiva is pale. Sclerae not icteric. NECK: Supple, no JVD. CHEST: There is no wheezing. There are bibasilar crackles. HEART: Rate and rhythm regular, normal sound, no murmur. ABDOMEN: Soft. Colostomy in place. Bowel sounds are absent. RECTAL: Deferred. EXTREMITIES: No cyanosis, no clubbing and 1+ pedal edema. SKIN: Warm, normal turgor. CENTRAL NERVOUS SYSTEM: The patient is awake and alert. There is no obvious cranial nerve abnormality. The gait was not tested. LABORATORY DATA: CBC: The WBC is 9.6, hemoglobin 9, hematocrit 28, the platelet count is 382. Chemistry: Sodium 148, potassium is 3.9, BUN is 12, creatinine is 1.8. Serum glucose is 111. Albumin is 2.9. CONSULT REPORT [id number] BIENVENIDO AGUSTIN IMPRESSION: 1. Acute hypoxic respiratory failure post-procedure. 2. Pneumonia, bibasilar, most likely hospital-acquired pneumonia, possible associated atelectasis. 3. Peritonitis secondary to perforated bowel and the fistula and status post laparotomy, partial colectomy and colostomy. 4. Gastrointestinal bleed. 5. Anemia. 6. Parkinson disease. 7. Acute renal failure. RECOMMENDATION: 1. We will continue mechanical ventilation, adjust the setting. 2. DVT and GI bleed, ulcer prevention. 3. Albuterol ipratropium nebulizer. 4. Continue vancomycin, Zosyn, and Flagyl. 5. Check the sputum for culture and sensitivity. 6. Continue TPN. 7. Follow up labs and chest radiograph. Dr. Hughes, thank you for involving me in the care of Ms. Agustin. The critical care time is 50 minutes. TRANSINT:[id number] Voice Confirmation ID: [id number] DOCUMENT ID: [id number] DIETER GAONA MD at 1806 CC: LIBORIO HUGHES [id number] DICTATION DATE: 01/08/18 135 MANAGER RELOCATION: 01/08/18 7997 ADM IN [place] [id number] [place] [address]
--- NOTE | ~2017-12-15 | OP ---
PATIENT NAME: BIENVENIDO ROGERS MEDICAL RECORD: [id number] :51 LOCATION:.[facility] D.2304 ADMISSION DATE:12/15/17 SURGEON: LIBORIO HUGHES MD DATE OF OPERATION: 01/08/2018 PREOPERATIVE DIAGNOSES: 1. Acute abdomen. 2. Left flank abscess. 3. Sepsis. 4. Left pleural effusion. 5. Parkinson disease. 6. Acute renal failure. POSTOPERATIVE DIAGNOSES: 1. Acute abdomen. 2. Left flank abscess. 3. Sepsis. 4. Left pleural effusion. 5. Parkinson disease. 6. Acute renal failure. 7. Left colon necrosis. PROCEDURES: 1. Left flank I&D with cultures. 2. Exploratory laparotomy. 3. Small-bowel resection. 4. Left hemicolectomy. 5. Transverse colostomy. SURGEON: Liborio Hughes MD REPORT OF PROCEDURE: The patient was placed on the right flank and the left flank was prepped and draped in sterile fashion. A skin incision was initially made over the left flank, which had some dense edema and mild erythema. I eventually was able to find a pocket, which was more posterior, so another separate incision was made over top of this. Through this incision, I was able to penetrate down into the patient's peritoneal cavity and there was feculent material visible. As I suctioned out the material, I pulled up this long tubular structure that was completely necrotic tissue, which I was concerned might be the colon. We irrigated out the wound thoroughly with normal saline. We then packed the wound with a lap pad and placed the patient in the supine position. The abdomen was prepped and draped in sterile fashion. A midline incision was performed. There were some adhesions present from previous exploratory laparotomy a little over 2 weeks prior. We had 2 enterotomies which occurred 1 was at the previous enterotomy site, which had been repaired. These 2 enterotomy sites were repaired by a small bowel resection using a #55 blue load DERECK stapler followed by a [id number] anastomosis with a #55 blue load DERECK stapler and closure with a #30 blue-load TA stapler. We oversewed the staple lines and inspected these at the end of the case and they were noted to be holding appropriately with no sign of a leak. We continued our dissection to the left lateral abdomen. I was able to find the remnants of the patient's colon. The distal transverse colon had some perforations present consistent OPERATIVE REPORT [id number] BIENVENIDO ROGERS with a recent necrosis. I was able to mobilize this distal transverse colon medially, taking down any adhesions using electrocautery or clamp and tie technique. We eventually were able to get the transverse colon back to where he had good viable tissue and this was transected with a #55 blue load DERECK stapler. This was left in place to be pulled up for a colostomy later. The left colon was inspected and noted to be almost completely necrosed on the lateral aspect. I continued my dissection down towards the sigmoid colon and rectum. The sigmoid colon appeared to be viable distally. We transected this distal sigmoid colon with a #55 blue load DERECK stapler and then took down the mesentery with sequential clamp and tie technique. This portion of the bowel was sent off for permanent specimen. We then marked the distal aspect of the bowel using a 2-0 Prolene. We irrigated out the abdomen thoroughly with normal saline and 19-Citizen Of [place] Tyler drains were placed in the left pericolic gutter and the left subphrenic space. These were sutured into place with 2-0 nylons. We inspected the staple lines of our anastomosis one last time and these appear to be viable with no signs of necrosis and no signs of any leakage. An opening was placed in the right upper quadrant through the rectus musculature to house our colostomy. The transverse colon was eviscerated through this opening. We then closed the midline fascia using running #1 loop PDS times 2 and the wound was left open. The colostomy was matured with multiple interrupted 4-0 Vicryls and a colostomy bag was applied. The midline wound was dressed with a damp Kerlix and covered with 4 x 4s the left flank wound was packed with damp Kerlix and covered with 4 x 4s. COMPLICATIONS: None. CONDITION: Fair. ANESTHESIA: General endotracheal. BLOOD LOSS: 300 mL. TRANSINT:[id number] Voice Confirmation ID: [id number] DOCUMENT ID: [id number] LIBORIO HUGHES MD at 1031 CC: [id number] DICTATION DATE: 01/08/18 1304 YARD CLEANER: 01/08/18 2340 ADM IN [place] [id number] [place] [address]
--- NOTE | ~2017-12-15 | OP ---
PATIENT NAME: BIENVENIDO ROGERS MEDICAL RECORD: [id number] :51 LOCATION:[facility] D.2304 ADMISSION DATE:12/15/17 SURGEON: DIETER GAONA MD DATE OF OPERATION: 01/11/2018 PROCEDURE: Fiberoptic bronchoscopy. REASON FOR CONSULTATION: Worsening bibasilar atelectasis. Fiberoptic bronchoscopy was carried out to inspect the airway for mucus plugging as well as to obtain culture and sensitivity for worsening leukocytosis. PROCEDURE IN DETAIL: The patient is orally intubated. The fiberoptic bronchoscope was passed through the ET tube. The huma was sharp. There was thick yellowish secretion in the right main bronchus and subsegments. The bronchitic changes bled easily by touching with the bronchoscope. There is no endobronchial lesion seen in the right upper lobe, right middle lobe, right lower lobe segments. The left main bronchus was normal. There was also thick yellow secretion. The left upper lobe lingula, left lower lobe within normal range. No endobronchial lesion was seen. Specimen washing was obtained for routine culture sensitivity AB and fungus and cytology. The patient was monitored throughout the procedure and tolerated it well. TRANSINT:[id number] Voice Confirmation ID: [id number] DOCUMENT ID: [id number] DIETER GAONA MD at 1806 CC: [id number] DICTATION DATE: 01/11/18 1135 ELECTROMAGNET CRANE OPERATOR: 01/11/18 1216 ADM IN [place] [id number] [place] [address]
--- NOTE | ~2017-12-15 | HEMODYNAMI ---
PATIENT:BIENVENIDO ROGERS MEDICAL RECORD: [id number] : 51 LOCATION:[facility] ADMISSION DATE: 12/15/17 Generatedon:12/16/201717:06 Patient name: BIENVENIDO ROGERS Patient #: [id number] SSN: DO B: 1955 Date of study: 12/16/2017 Page: Of Hemodynamic Procedure Report Patient Data Patient Demographics Procedure consent was obtained First Name: BIENVENIDO Gender: Female Last Name: SUE : 1955 Patient #: [id number] Age: 62 year(s) Race: Unknown Additional ID: [id number] Contact details Address: [address] [place] [address] State: [place] City: [facility] [place] Zip code: [address] Past Medical History Allergies Allergen Reaction Date Comments Reported Sulfa drugs 12/16/2017 Admission Admission Data Admission Date: 12/15/2017 Admission Time: 12:00 Room #: Deja7 Weight (lbs.): 165 Weight (kg.): 74.84 Procedure Procedure Types Cath Procedure Peripheral Cath Diagnostic Procedure Cath Peripheral Abd/Extremity Visceral/Mesenteric Mesenteric Arteriogram (Abd Artery) Procedure Description Procedure Date Procedure Date: 12/16/2017 Procedure Start Time: 15:50 Procedure Staff Name Function Mali Forte RT Track Maintainer Mali Forte RT Monitor Anselmo Adams RT Scrub Elia Liao COLLISION ESTIMATOR Additional personnel Keshawn Albrecht MD Performing Physician Snehal Chacko RN Nurse Malou Mackey RN Nurse Procedure Data Cath Procedure Fluoroscopy Diagnostic fluoroscopy Total fluoroscopy Time: 8.9 time: 8.9 min min Diagnostic fluoroscopy Total fluoroscopy dose: 729 dose: 729 mGy mGy Contrast Material Contrast Material Type Amount (ml) Isovue 300 125 Diagnostic catheters Device Type Used For End Catheter Placement Merit Impress 5Fr SIM 1 Catheter ([id number]) Angiodynamics SOS OMNI 2 NON B 5FR 65CM catheter ([id number]) Procedure Medications Medication Administration Route Dosage Lidocaine 1% added to field 20 Heparin Flush Bag added to field 3 bags (1000units/500ml NS) Oxygen NC 3 l/min Hemodynamics Rest Heart Rate: 82 (bpm) Snapshots Pre Cath Intra NCS Post Cath Vital Signs Time Heart Resp SPO2 etCO2 NIBP (mmHg) Rhythm Pain Status Sedation Rate (ipm) (%) (mmHg) Level (bpm) 15:00:53 95 25 26.2 110/73(92) NSR 0 (11) , No 10(A) pain 15:04:59 99 19 99 29.2 127/74(96) NSR 0 (11) , No 10(A) pain 15:08:59 96 18 98 26.2 No Cuff NSR 0 (11) , No 10(A) pain 15:13:58 99 15 29.9 Measuring NSR 0 (11) , No 10(A) pain 15:15:22 101 20 98 19.4 Time NSR 0 (11) , No 10(A) Exceeded pain 15:19:50 97 17 28.4 Aborted NSR 0 (11) , No 10(A) pain 15:23:50 101 16 98 26.2 No Cuff NSR 0 (11) , No 10(A) pain 15:27:49 98 16 23.9 No Cuff NSR 0 (11) , No 10(A) pain 15:31:49 94 19 98 28.4 No Cuff NSR 0 (11) , No 10(A) pain 15:35:43 92 16 24.7 Aborted NSR 0 (11) , No 10(A) pain 15:38:14 86 17 98 11.9 134/55(75) NSR 1 (11) , Very 10(A) mild 15:42:32 85 14 26.9 139/61(113) NSR 1 (11) , Very 10(A) mild 15:46:48 85 23 99 17.2 126/52(72) NSR 2 (11) , 10(A) Uncomfortable 15:51:02 86 22 100 9.7 126/47(68) NSR 2 (11) , 10(A) Uncomfortable 15:55:12 86 21 100 29.2 89/47(68) NSR 1 (11) , Very 10(A) mild 15:58:00 86 23 100 29.2 94/42(66) NSR 0 (11) , No 7(A) pain 16:02:10 86 38 100 31.4 94/45(77) NSR 0 (11) , No 7(A) pain 16:06:20 86 41 100 32.9 106/45(62) NSR 0 (11) , No 7(A) pain 16:10:32 88 41 100 31.4 95/44(64) NSR 0 (11) , No 7(A) pain 16:14:44 88 45 100 32.9 113/40(72) NSR 0 (11) , No 7(A) pain 16:18:52 89 26 100 31.4 94/45(69) NSR 0 (11) , No 7(A) pain 16:23:01 88 45 100 34.4 91/42(67) NSR 0 (11) , No 7(A) pain 16:27:09 90 43 100 28.4 98/44(79) NSR 0 (11) , No 7(A) pain 16:31:21 92 44 100 32.9 103/46(73) NSR 0 (11) , No 7(A) pain 16:35:27 91 23 100 25.4 114/63(79) NSR 0 (11) , No 7(A) pain 16:40:26 92 29 100 14.9 Measuring NSR 0 (11) , No 7(A) pain 16:41:44 92 18 28.4 135/61(106) NSR 0 (11) , No 7(A) pain 16:45:58 90 20 100 20.9 132/68(88) NSR 0 (11) , No 7(A) pain 16:50:57 92 13 100 27.7 131/70(84) NSR 0 (11) , No 7(A) pain 16:55:56 22.4 Measuring NSR 0 (11) , No 7(A) pain 16:56:14 0 No Cuff NSR 0 (11) , No 7(A) pain 17:00:02 0 No Cuff NSR 0 (11) , No 7(A) pain 17:04:01 0 No Cuff NSR 0 (11) , No 7(A) pain Medications Time Medication Route Dose Verified Delivered Reason Notes Effec tiveness by by 15:56:23 Lidocaine 1% added 20ml Keshawn Liao used for to vial Trena Albrecht procedure field MD AMOS 15:56:47 Heparin Flush added 3 Keshawn Liao used for Bag to bags Trena Albrecht procedure (1000units/500ml field MD AMOS NS) 15:57:06 Oxygen NC 3 Keshawn Snehal used for l/min Trena Chacko medical oncologist Procedure Log Time Note 14:34:38 Patient Weight : 165 lbs 14:39:13 Use device set IR Diagnostic 14:39:21 Tegaderm 4 x 4 (1626W) opened to sterile field. 14:39:22 Sterile Angiographic Pack opened to sterile field. 14:39:23 Bag Decanter (2001S) opened to sterile field. 14:39:27 ACIST Manifold (41372) opened to sterile field. 14:39:29 ACIST Hand Control (45995) opened to sterile field. 14:39:30 ACIST Syringe (19681) opened to sterile field. 14:39:31 TRANSEND STEERABLE wire ([id number]) opened to sterile field. 14:39:32 BENTSON 145cm wire (R51170) opened to sterile field. 14:39:33 TUBING Contrast Injection High Pressure (WTU081Q) opened to sterile field. 14:39:34 St Sheng 5FR Sheath opened to sterile field. 14:39:37 A A-Vu Media 5Fr SIM 1 Catheter ([id number]) was advanced over the wire and used for . 14:39:39 Micropuncture VSI 4FR kit opened to sterile field. 14:39:43 - 14:46:14 Time tracking: Regular hours (M-F 7:00 - 5:00) 14:46:38 Patient received from Med/Surg to IR Alert and oriented. Tansferred to table in Supine position. 14:46:43 Warm blankets applied, and osvaldo hugger turned on for patient comfort. 14:46:44 Correct patient and procedure confirmed by team. 14:46:47 Signed procedure consent form obtained from patient. 14:47:04 H&P Date Dictated: 12/16/2017 Within 30 days and on chart.. 14:47:07 Pre-procedure instructions explained to patient. 14:47:08 Pre-op teaching completed and patient verbalized understanding. 14:47:10 Family in waiting room. 14:47:13 Patient NPO since Midnight. 14:49:09 Patient allergic to Sulfa drugs 14:49:14 Is the patient allergic to Iodine/contrast media? No. 14:49:38 Patient diabetic? No. 14:49:41 - 14:50:06 see anesthesia notes for monitoring of patinet during procedure 14:50:18 - 14:50:18 - 14:50:27 Right groin area was prepped with chlora-prep and draped in sterile fashion 14:59:47 ECG and BP/O2 sat monitors applied to patient. 14:59:48 Vital chart was started 14:59:49 Baseline sample Acquired. 14:59:51 - 14:59:51 Full Disclosure recording started 15:00:07 A AngiodynamZando SOS OMNI 2 NON B 5FR 65CM catheter ([id number]) was advanced over the wire and used for . 15:47:10 Physician arrived 15:49:23 --------ALL STOP TIME OUT------ 15:49:24 Final Timeout: patient, procedure, and site verified with staff and physician. All members of the team are in agreement. 15:49:41 Procedure started. 15:50:00 Local anesthetic to right femoral artery with Lidocaine 1% by Keshawn Albrecht MD.INITIAL ACCESS ONLY 15:50:14 Arterial access obtained using ultrasound guidance. 15:56:23 Lidocaine 1% 20ml vial added to field was administered by Keshawn boone MD; used for procedure; 15:56:47 Heparin Flush Bag (1000units/500ml NS) 3 bags added to field was administered by Keshawn Albrecht MD; used for procedure; 15:56:50 Angiography was performed. 15:57:06 Oxygen 3 l/min NC was administered by Snehal Chacko RN; used for procedure; 16:02:23 COPILOT Valve Control (2708192) opened to sterile field. 16:02:44 RENEGADE HI-EUGENIE microcatheter ([id number]) opened to sterile field. 16:13:46 GLIDE WIRE GT DOUBLE ANGLE .018 (RG*[id number]) opened to sterile field. 16:25:46 GLIDE CATHETER 5FR COBRA 65cm (CG502) opened to sterile field. 16:25:47 BENTSON 260cm .035 wire (O37080) opened to sterile field. 16:27:24 Tegaderm 6 x 8 (1628) opened to sterile field. 16:27:25 Tegaderm 6 x 8 (1628) opened to sterile field. 16:30:39 Procedure ended.(Physican Out) 16:35:10 Procedure and supply charges have been captured, reviewed, submitted an d are correct. 16:35:28 Post Procedure Pulses reassessed and unchanged 16:35:37 Fluoroscopy time 08.90 minutes. 16:35:43 Fluoroscopy dose: 729 mGy 16:35:43 Flurop Dose total: 729 16:35:49 Contrast amount:Isovue 300 125ml. 17:03:22 Insertion/operative site no bleeding no hematoma. 17:03:28 Post-op/insertion site Right Femoral artery dressed using a 4 x 4 and Tegaderm. 17:03:34 Post right femoral artery:stable 17:03:41 Post procedure instruction explained to patient.Patient verbalizes understanding. 17:04:02 Report given to ICU. 17:04:06 Patient transfered to ICU with Bed. 17:05:04 Full Disclosure recording stopped Device Usage Item Name Manufacture Quantity Catalog Hospital Part Current Mini mal Lot# / Number Charge Number Stock Stock Serial# Code Tegaderm 4 x 3M 1 1626W 695319 898982 928665 5 4 (1626W) Sterile Cardinal 1 [id number] 735115 947212 5 Angiographic Health Pack Bag Decanter Microtek 1 2001S 427032 41108 133072 5 (2001S) Medical Inc. ACIST Acist Medical 1 32053 712995 749076 848195 5 Manifold Systems Inc (08251) ACIST Hand Acist Medical 1 92186 101195 681430 672543 5 Control Systems Inc (25470) ACIST Syringe Acist Medical 1 15142 183914 297626 842813 20 (25291) Systems Inc TRANSEND [place] 1 [id number] 430289 920001 5 STEERABLE Scientific wire ([id number]) BENTSON 145cm [employer] 1 Y81543 470299 003964 5 wire (D21162) TUBING [facility] Medical 1 JPI237H 159366 191141 185999 5 Contrast Injection High Pressure (BER666J) St Sheng 5FR St Sheng 1 981769 081630 337913 5 Sheath Merit Impress [facility] Medical 1 [id number] 631173 254418 303357 5 5Fr SIM 1 Catheter (40138PBT2) Micropuncture VSI VASCULAR 1 7266V 067179 678188 5 VSI 4FR kit SOLUTIONS Angiodynamics Angiodynamics 1 48865650 325383 55531 639283 5 SOS OMNI 2 NON B 5FR 65CM catheter (00093145) COPILOT Valve Hou 1 9738105 693430 235933 999814 5 Control Vascular (8989491) RENEGADE [place] 1 [id number] 370888 222409 5 HI-EUGENIE Scientific microcatheter ([id number]) GLIDE WIRE GT Terumo 1 [id number] 455497 670827 5 169865 DOUBLE ANGLE .018 (RG*[id number]) GLIDE Terumo 1 CG502 859010 556805 5 CATHETER 5FR COBRA 65cm (CG502) BENTSON 260cm [facility] 1 Q47900 229095 219692 011499 4 2480643 .035 wire (E28563) Tegaderm 6 x 3M 2 1628 197488 256522 5 8 (1628) Signature Audit [place] Stage Time Signature Unsigned Intra-Procedure 12/16/2017 Anselmo 5:06:00 PM [place] RT (R) (CV) Signatures Monitor : Mali Forte RT Signature : Date : Time : [facility] [address] [place] [address]
--- NOTE | ~2017-12-15 | OP ---
PATIENT NAME: BIENVENIDO ROGERS MEDICAL RECORD: [id number] :51 LOCATION:D.[facility] Lewis2223 ADMISSION DATE:12/15/17 SURGEON: SHIRA BENAVIDES MD DATE OF OPERATION: 12/22/2017 PREOPERATIVE DIAGNOSES: 1. Upper gastrointestinal bleeding. 2. Blood loss anemia requiring transfusions. 3. History of gastric bypass. POSTOPERATIVE DIAGNOSES: 1. Upper gastrointestinal bleeding. 2. Blood loss anemia requiring transfusions. 3. History of gastric bypass. PROCEDURE: Gastroduodenal jejunoscopy. SURGEON: Shira Benavides MD TECHNICAL DELIVERY MANAGER: None. BLOOD LOSS: Minimal. My involvement in the operation included minor involvement and the diagnostic laparoscopy with retraction of tissues including manipulation of the tissues. Assistance with Dr. Hughes as he performed the adhesiolysis. I also assisted him with creating the gastrotomy by retraction of tissues and some dilation of the gastrotomy. We then advanced a sterile gastroscope down through the 12-mm trocar. Dr. Hughes was able to push the tip of the gastroscope in through the gastrotomy and then he was able to grasp the tissue around the gastrotomy and close it, so that I could insufflate the stomach. Retroflexed and angulus views were obtained as well as use of the antrum and the pylorus. We found no evidence of old blood. I was able to advance a gastroscope with his assistance while pushing the gastroscope through the gastrotomy into the duodenum into the jejunum and then about a foot down the jejunum. We found no evidence of ulcerations. No evidence of bleeding. I really scrutinized the duodenal second and first portions of the duodenum. We looked at the pylorus in the prepyloric area. No evidence again of any ongoing bleeding, ulceration, or old blood. We then withdrew the gastroscope. He then grasped the gastrotomy and I was able to fire an Endo-DERECK 45 stapler with a green load to close the gastrotomy. That ended my involvement in the procedure. Dr. Hughes was going then going to perform a standard upper endoscopy. TRANSINT:[id number] Voice Confirmation ID: [id number] DOCUMENT ID: [id number] OPERATIVE REPORT [id number] BIENVENIDO ROGERS ROBERT MD at 1157 CC: RICARDO LAWRENCE MD, MILADIS BARKER MD, Dominic HUGHES,[id number] DICTATION DATE: 12/22/17 1026 INTERNATIONAL STUDENT COUNSELOR: 12/22/17 [address] [facility] [address] [place] [id number]
--- NOTE | ~2017-12-15 | OP ---
PATIENT NAME: BIENVENIDO ROGERS MEDICAL RECORD: [id number] :51 LOCATION:[facility] D.2314 ADMISSION DATE:12/15/17 SURGEON: LIBORIO HUGHES MD DATE OF OPERATION: 12/22/2017 PREOPERATIVE DIAGNOSES: 1. Gastrointestinal bleed. 2. Acute blood loss anemia. 3. Parkinson disease. POSTOPERATIVE DIAGNOSES: 1. Gastrointestinal bleed. 2. Acute blood loss anemia. 3. Parkinson disease. PROCEDURES: 1. Right subclavian vein central venous line placement. 2. Diagnostic laparoscopy. 3. Laparoscopic lysis of adhesions. 4. Push gastroduodenoscopy. 5. Push enteroscopy. 6. Oversew of bleeding jejunojejunostomy. SURGEON: Liborio Hughes MD CO-SURGEON: Mckay Davis MD REPORT OF PROCEDURE: The patient's right chest was prepped and draped in sterile fashion. A needle was used to cannulate the right subclavian vein and a guidewire was advanced with ease. Over this wire, a dilator was placed followed by the triple-lumen catheter. The catheter aspirated nonpulsatile dark blood and flushed easily with normal saline. This was sutured into place with 3-0 silk ties and dressed appropriately. The abdomen was then prepped and draped in sterile fashion. A Veress needle was inserted in the left upper quadrant. After insufflation was obtained, then a 5-mm trocar was placed in the right upper quadrant. There was noted to be some adhesions present in the upper midline and extending around to the left lateral abdomen. A 5-mm trocar was then placed in the midline just below the umbilicus. With these, we were able to take down a bunch of adhesions that were present in the midline and upper abdomen. Finally, when we had this freed up, we were able to place a 12-mm trocar in the left lateral subcostal region. There were some adhesions of the stomach and omentum to the anterior abdominal wall and also to the left lobe of the liver. Once we freed these adhesions up, we could see some of the anatomy better from the patient's previous Thomas-en-Y gastric bypass. The gastric remnant was localized. Using electrocautery, an opening was made in the body of the stomach. We advanced the gastroscope through the 12-mm trocar and through the gastrotomy. At this point, Dr. Davis performed a gastroscopy and duodenoscopy. There was no sign of any active bleeding or old blood present throughout his investigation. He was able to run the catheter down deep into the small bowel for approximately 70 cm. At the conclusion of this, we decided there was no sign of any duodenal or gastric ulcers. The endoscope was removed at this time. A 45 green load Endo-DERECK stapler was then used to close the gastrotomy. At this point, we left all of the trocars in place. I performed an upper endoscopy. An Olympus endoscope was advanced through the patient's mouth and esophagus. There were no masses or lesions noted. We easily passed in OPERATIVE REPORT [id number] BIENVENIDO ROGERS through the GE junction to the gastric pouch. I was able to visualize the gastric pouch and again there was no sign of any active bleeding and no sign of any old blood. We penetrated through the gastrojejunostomy and I was able to pass the scope approximately 70 cm from the teeth. Again, there was no sign of any active bleeding. No masses, no lesions or ulcerations were seen, and there was no sign of any old blood present throughout the lumen. At this point, the endoscope was removed. I performed a laparoscopy and I was able to run the small bowel from the terminal ileum back up to the jejunojejunostomy. Throughout this section of the bowel, I was able to see intraluminal blood present. Once we reached the jejunojejunostomy, I could not see any evidence of any blood proximal to this. I figured there must be some form of bleeding process here. A midline incision was performed just above the umbilicus and GelPort was inserted. We eviscerated the small bowel through the wound protector of the GelPort. We then performed a push enteroscopy through an opening just distal to the jejunojejunostomy. The push enterostomy was performed into both proximal openings past the jejunojejunostomy and in both of those areas, I did not see any evidence of any bleeding or old blood. At the jejunojejunostomy, there was some old clotted blood present, but initially no active bleeding was seen. We irrigated out the area and I inspected closely and saw no signs of any ulcerations, masses, or lesions. We then performed our push enteroscopy distally through the remaining small bowel and into the cecum. There was blood present throughout the small bowel and into the cecum. Again, no masses, lesions, ulcerations, or active bleeding were seen throughout this portion of the procedure. As I pulled back slowly and washed off the mari, I did not see any abnormalities. There are no signs of diverticulum. I eventually reinspected the patient's jejunojejunostomy as I felt this was the most likely source of the bleeding. At this point, there were 2 areas of rather brisk bleeding that was nonpulsatile at the jejunojejunostomy anastomotic staple line. There was not an ulceration or mass present at these areas, and I could feel this area as it was eviscerated through the wound. I went ahead and just performed a ajmvnw-wl-izjql suturing over this area of bleeding, which discontinued any bleeding from that site. There was another area just inferior to it and again this was oversewn with a 3-0 silk tie. Eventually just did not oversew the entire staple line on the anterior aspect. Note, we reinspected, there was no sign of any active bleeding throughout the jejunojejunostomy. At this point, the insufflation was completely removed. The enterostomy was closed with a 30 blue load TA stapler and the staple line was oversewn with lemberted 3-0 silks. We then placed all the bowel back into the abdominal cavity. The GelPort hand cover was put into place and we reinsufflated the abdomen. I irrigated out the abdomen with normal saline and assured there was no sign of any active bleeding throughout the patient's abdominal cavity. Once this was done, the 12-mm trocar site fascia was closed with a single interrupted 0 Vicryl using a Adrian-Fabby suture passer device. The ports and insufflation were then removed. The midline fascia was closed with running #1 loop PDS times 2. The subcutaneous tissues were reapproximated with interrupted 3-0 Vicryl and the skin incisions were all closed with jad. COMPLICATIONS: None. CONDITION: Stable. ANESTHESIA: General endotracheal. BLOOD LOSS: 50 mL. OPERATIVE REPORT [id number] BIENVENIDO ROGERS TRANSINT:[id number] Voice Confirmation ID: [id number] DOCUMENT ID: [id number] LIBORIO HUGHES MD at 1052 CC: [id number] DICTATION DATE: 12/22/17 1553 SUPERVISOR WEBBING: 12/22/17 1634 ADM IN [facility] [address] [place] [id number]
--- NOTE | ~2017-12-15 | HEMODYNAMI ---
PATIENT:BIENVENIDO ROGERS MEDICAL RECORD: [id number] : 51 LOCATION:[facility] D.2301 ADMISSION DATE: 12/15/17 Generatedon:12/17/201714:19 Patient name: BIENVENIDO ROGERS Patient #: [id number] SSN: DO B: 1955 Date of study: 12/17/2017 Page: Of Hemodynamic Procedure Report Patient Data Patient Demographics Procedure consent was obtained First Name: BIENVENIDO Gender: Female Last Name: SUE : 1955 Patient #: [id number] Age: 62 year(s) Race: Unknown Additional ID: [id number] Contact details Address: [address] [place] [address] State: [place] City: [facility] Zip code: [address] Past Medical History Allergies Allergen Reaction Date Comments Reported Sulfa drugs 12/16/2017 Sulfa drugs 12/17/2017 Admission Admission Data Admission Date: 12/15/2017 Admission Time: 12:00 Room #: D.2301 Weight (lbs.): 165 Weight (kg.): 74.84 Procedure Procedure Types Cath Procedure Peripheral Cath Diagnostic Procedure Cath Peripheral Abd/Extremity Extremities Right Lower Ext Arterio Procedure Description Procedure Date Procedure Date: 12/17/2017 Procedure Start Time: 14:12 Procedure Staff Name Function Kaz Patel MD Performing Physician Mali Forte RT Geneticist Ricco Brian RN Nurse Anselmo Adams RT Scrub Procedure Data Cath Procedure Fluoroscopy Diagnostic fluoroscopy Total fluoroscopy Time: 0.4 time: 0.4 min min Diagnostic fluoroscopy Total fluoroscopy dose: 60 dose: 60 mGy mGy Contrast Material Contrast Material Type Amount (ml) Isovue 300 10 Entry Location Entry Primary Successful Side Size Upsize Upsize Entry Closure Succes sful Closure Location (Fr) 1 (Fr) 2 (Fr) Remarks Device Remarks Femoral Right Exoseal artery Procedure Medications Medication Administration Route Dosage Lidocaine 1% added to field 20 Heparin Flush Bag added to field 1 bags (1000units/500ml NS) Ancef (1Gm/50ml NS) I.V.P.B 1 g Versed I.V. 2 mg Fentanyl I.V. 100 mcg Hemodynamics Rest Heart Rate: 113 (bpm) Snapshots Pre Cath Intra NCS Post Cath Vital Signs Time Heart Resp SPO2 etCO2 NIBP (mmHg) Rhythm Pain Sedation Rate (ipm) (%) (mmHg) Status Level (bpm) 14:01:13 102 21 30 Measuring NSR 0 (11) 10(A) , No pain 14:01:44 105 19 27 129/60(89) NSR 0 (11) 10(A) , No pain 14:06:02 103 20 26.2 119/62(82) NSR 0 (11) 10(A) , No pain 14:10:16 102 7 29.2 132/64(90) NSR 0 (11) 10(A) , No pain 14:14:30 105 15 24.7 132/69(100) NSR 0 (11) 10(A) , No pain 14:18:46 109 10 100 23.2 142/75(87) NSR 0 (11) 10(A) , No pain Medications Time Medication Route Dose Verified Delivered Reason Notes Effe ctiveness by by 14:08:21 Lidocaine 1% added 20ml Kaz Mccurdy used for to vial Patel Patel procedure field MD AMOS 14:08:34 Heparin Flush added 1 Kaz Mccurdy used for Bag to bags Patel Ptael procedure (1000units/500ml field MD AMOS NS) 14:14:28 Ancef (1Gm/50ml I.V.P.B 1 g Kaz Chacko used for NS) Amanda Brian RN procedure 14:14:38 Versed I.V. 2 mg Kaz Chacko for Patel Snehal RN sedation 14:14:48 Fentanyl I.V. 100 Kaz Chacko for mcg Patel Snehal RN sedation Procedure Log Time Note 13:49:00 Patient Weight : 165 lbs 13:49:21 Time tracking: Regular hours (M-F 7:00 - 5:00) 13:50:18 Patient received from ICU to IR Alert and oriented. Tansferred to table in Supine position. 13:50:34 Plan of Care:Hemodynamics will remain stable., Cardiac rhythm will remain stable., Comfort level will be maintained., Respiratory function will remain adequate., Patient/ family verbilizes understanding of procedure., Procedure tolerated without complication., Recovers from procedure without complications.. 13:50:38 Signed procedure consent form obtained from patient. 13:50:45 H&P Date Dictated: 12/17/2017 Within 30 days and on chart.. 13:51:15 Patient NPO since Lunch. 13:56:19 Patient allergic to Sulfa drugs 13:56:25 Is the patient allergic to Iodine/contrast media? No. 13:56:30 Is patient on blood thinner?No 13:56:33 Patient diabetic? No. 13:56:37 - 13:56:52 Use device set IR Diagnostic 13:56:54 Tegaderm 4 x 4 (1626W) opened to sterile field. 13:56:58 Sterile Angiographic Pack opened to sterile field. 13:56:59 Bag Decanter (2002S) opened to sterile field. 13:57:07 - 13:57:18 Right groin area was prepped with chlora-prep and draped in sterile fashion 13:59:24 ECG and BP/O2 sat monitors applied to patient. 13:59:24 Vital chart was started 13:59:26 Baseline sample Acquired. 13:59:26 - 14:02:07 ----Pre-sedation anethsthesia assessment.---- 14:02:10 Previous problem with sedation/anesthesia? No ? 14:02:14 Snore? No 14:02:16 Sleep apnea? No 14:02:18 Deviated septum? No 14:02:22 Opens mouth fully? Yes 14:02:24 Sticks out tongue? Yes 14:02:27 Airway obstruction? No ? 14:02:32 Dentures? No ? 14:08:21 Lidocaine 1% 20ml vial added to field was administered by Kaz Patel MD; used for procedure; 14:08:34 Heparin Flush Bag (1000units/500ml NS) 1 bags added to field was administered by Kaz Patel MD; used for procedure; 14:11:04 Physician arrived 14:11:06 --------ALL STOP TIME OUT------ 14:11:07 Final Timeout: patient, procedure, and site verified with staff and physician. All members of the team are in agreement. 14:12:14 Procedure started. 14:12:15 Full Disclosure recording started 14:12:19 Local anesthetic to right femoral artery with Lidocaine 1% by Kaz Patel MD.INITIAL ACCESS ONLY 14:14:02 EXOSEAL 5Fr (EX500) opened to sterile field. 14:14:23 Sheath removed intact; hemostasis achieved with Exoseal to the Right Femoral artery. 14:14:23 A sheath was inserted into the Right Femoral artery 14:14:28 Ancef (1Gm/50ml NS) 1 g I.V.P.B was administered by Ricco Brian RN; used for procedure; 14:14:38 Versed 2 mg I.V. was administered by Ricco Brian RN; for sedation; 14:14:48 Fentanyl 100 mcg I.V. was administered by Ricco Brian RN; for sedation; 14:16:05 Procedure ended.(Physican Out) 14:16:19 Fluoroscopy time 00.40 minutes. 14:16:43 Fluoroscopy dose: 60 mGy 14:16:43 Flurop Dose total: 60 14:16:57 Contrast amount:Isovue 300 10ml. 14:17:13 Procedure and supply charges have been captured, reviewed, submitted an d are correct. 14:19:15 Report given to ICU. 14:19:50 Vital chart was stopped Device Usage Item Name Manufacture Quantity Catalog Hospital Part Current Minimal Lot# / Number Charge Number Stock Stock Serial# Code Tegaderm 4 x 3M 1 1626W [id number] (1626W) Sterile Cardinal 1 [id number] 5 Angiographic Health Pack Bag Decanter Microtek 1 2001S [id number] (2001S) [employer] EXOSEAL 5Fr Cardinal 1 EX500 [id number] (EX500) Health Signature Audit [place] Stage Time Signature Unsigned Intra-Procedure 12/17/2017 Mali Forte 2:19:47 PM RT(R) [facility] [address] [place] [address]
[~2017-12-15 10:17] MED LIST changes: +AMITIZA8 MCG PO; +HYDROCODON-ACE1 EAC7 PO; +LEVAQUIN750 MG PO; +NEURONTIN 300300 MG PO; +PEPCID40 MG PO
[2017-12-15 10:46] LABS: BASOPHILS 0.2 % (0-2); EOSINOPHILS 0.5 % (0-7); IMMATURE GRANULOCYTES 0.3 % (0-5); LYMPHOCYTES 10.1 % (15-50); MCH 25.2 pg (26.0-34.0); MCHC 30.9 g/dL (31.0-37.0); MCV 81.5 fL (80.0-100.0); MEAN PLATELET VOLUME 10.1 fL (7.4-10.4); MONOCYTES 8.9 % (2-11); PLATELET COUNT 238 10x3/uL (130-400); RBC 2.38 10x6/uL (4.00-5.40); RDW 18.1 % (11.5-14.5); WBC 15.5 10x3/uL (4.8-10.8)
[2017-12-15 10:57] LABS: ALBUMIN 3.1 g/dL (3.4-5.0); ANION GAP 20.7 mmol/L (8-16); BILIRUBIN - TOTAL 0.38 mg/dL (0.2-1.3); CALCIUM 8.3 mg/dL (8.5-10.1); CARBON DIOXIDE 15.9 mmol/L (21.0-32.0); CREATININE - SERUM 0.9 mg/dL (0.6-1.3); POTASSIUM - SERUM 4.6 mmol/L (3.5-5.1)
[2017-12-15 10:58] LABS: HEMATOCRIT 19.4 % (36.0-48.0)
[2017-12-15 21:48] VITALS: BMI 28.4
[2017-12-16] VITALS (9 sets, daily range): BP systolic 99–147; BP diastolic 45–98; BMI 28.3
[2017-12-16 04:33] LABS: HEMATOCRIT 19.5 % (36.0-48.0); HEMOGLOBIN 6.3 g/dL (12-16)
[2017-12-16 16:07] LABS: INR 1.26 (0.85-1.17); PROTIME 15.4 SECONDS (11.6-15.0)
[2017-12-16 17:01] LABS: BASOPHILS 0.4 % (0-2); EOSINOPHILS 0.8 % (0-7); IMMATURE GRANULOCYTES 0.4 % (0-5); MCH 27.4 pg (26.0-34.0); MCHC 32.8 g/dL (31.0-37.0); MCV 83.3 fL (80.0-100.0); MEAN PLATELET VOLUME 8.9 fL (7.4-10.4); MONOCYTES 11.8 % (2-11); NEUTROPHILS 60.6 % (40-80); RBC 2.34 10x6/uL (4.00-5.40); RDW 15.9 % (11.5-14.5)
[2017-12-16 17:02] LABS: WBC 4.9 10x3/uL (4.8-10.8)
[2017-12-16 17:08] LABS: HEMATOCRIT 19.5 % (36.0-48.0); PLATELET COUNT 189 10x3/uL (130-400)
[2017-12-16 17:09] LABS: HEMOGLOBIN 6.4 g/dL (12-16)
[2017-12-16 19:49] LABS: HEMATOCRIT 27.7 % (36.0-48.0); HEMOGLOBIN 9.3 g/dL (12-16)
[2017-12-16 22:59] LABS: HEMATOCRIT 27.4 % (36.0-48.0); HEMOGLOBIN 9.5 g/dL (12-16)
[2017-12-17] VITALS (28 sets, daily range): BP systolic 85–136; BP diastolic 47–74
[2017-12-17 03:40] LABS: BASOPHILS 0.1 % (0-2); EOSINOPHILS 0 % (0-7); HEMATOCRIT 27.1 % (36.0-48.0); HEMOGLOBIN 9.1 g/dL (12-16); IMMATURE GRANULOCYTES 0.5 % (0-5); LYMPHOCYTES 7.8 % (15-50); MCH 28.1 pg (26.0-34.0); MCHC 33.6 g/dL (31.0-37.0); MCV 83.6 fL (80.0-100.0); MEAN PLATELET VOLUME 9.3 fL (7.4-10.4); MONOCYTES 7.4 % (2-11); NEUTROPHILS 84.2 % (40-80); PLATELET COUNT 144 10x3/uL (130-400)
[2017-12-17 03:41] LABS: RBC 3.24 10x6/uL (4.00-5.40); WBC 14.5 10x3/uL (4.8-10.8)
[2017-12-17 03:56] LABS: ANION GAP 15.6 mmol/L (8-16); CALCIUM 7.4 mg/dL (8.5-10.1); CREATININE - SERUM 0.9 mg/dL (0.6-1.3); POTASSIUM - SERUM 4.3 mmol/L (3.5-5.1)
[2017-12-17 03:59] LABS: CARBON DIOXIDE 20.7 mmol/L (21.0-32.0)
[2017-12-17 09:49] LABS: BASOPHILS 0.2 % (0-2); EOSINOPHILS 0 % (0-7); HEMATOCRIT 25.2 % (36.0-48.0); HEMOGLOBIN 8.6 g/dL (12-16); IMMATURE GRANULOCYTES 0.6 % (0-5); LYMPHOCYTES 13.1 % (15-50); MCH 28.4 pg (26.0-34.0); MCHC 34.1 g/dL (31.0-37.0); MCV 83.2 fL (80.0-100.0); MEAN PLATELET VOLUME 9.6 fL (7.4-10.4); MONOCYTES 11.1 % (2-11); PLATELET COUNT 125 10x3/uL (130-400); RBC 3.03 10x6/uL (4.00-5.40); RDW 15.3 % (11.5-14.5); WBC 12.4 10x3/uL (4.8-10.8)
[2017-12-17] MEDS ORDERED: PROTONIX40 MG PO (13:08)
[2017-12-17 16:51] LABS: BASOPHILS 0.3 % (0-2); EOSINOPHILS 0.4 % (0-7); HEMATOCRIT 28.8 % (36.0-48.0); HEMOGLOBIN 9.5 g/dL (12-16); IMMATURE GRANULOCYTES 0.4 % (0-5); LYMPHOCYTES 16.1 % (15-50); MCH 28.8 pg (26.0-34.0); MEAN PLATELET VOLUME 9.3 fL (7.4-10.4); MONOCYTES 12.5 % (2-11); NEUTROPHILS 70.3 % (40-80); PLATELET COUNT 144 10x3/uL (130-400); RDW 16.1 % (11.5-14.5); WBC 15.4 10x3/uL (4.8-10.8)
[2017-12-17 16:54] LABS: MCV 87.3 fL (80.0-100.0)
[2017-12-18] VITALS (24 sets, daily range): BP systolic 78–131; BP diastolic 43–72; Ht 162.6 cm; Wt 80.7 kg
[2017-12-18 03:14] LABS: CALC OSMOLALITY 283 mosm/kg (275-300); CALCIUM 7.7 mg/dL (8.5-10.1); CARBON DIOXIDE 24.2 mmol/L (21.0-32.0); CHLORIDE - SERUM 110 mmol/L (98-107); CREATININE - SERUM 0.7 mg/dL (0.6-1.3); GLUCOSE 96 mg/dL (74-106); SODIUM 142 mmol/L (136-145); UREA NITROGEN 16 mg/dL (7-18); eGFR NON AFRICAN AMERICAN 89 mL/min (90-120)
[2017-12-18 03:52] LABS: BASOPHILS 0.3 % (0-2); HEMATOCRIT 24.9 % (36.0-48.0); HEMOGLOBIN 8.2 g/dL (12-16); IMMATURE GRANULOCYTES 0.2 % (0-5); LYMPHOCYTES 16.1 % (15-50); MCH 28.8 pg (26.0-34.0); MCHC 32.9 g/dL (31.0-37.0); MCV 87.4 fL (80.0-100.0); MEAN PLATELET VOLUME 9.6 fL (7.4-10.4); MONOCYTES 9.7 % (2-11); NEUTROPHILS 72.7 % (40-80); PLATELET COUNT 158 10x3/uL (130-400); RBC 2.85 10x6/uL (4.00-5.40); RDW 16.1 % (11.5-14.5); WBC 10.1 10x3/uL (4.8-10.8)
[2017-12-18 11:15] LABS: BASOPHILS 0.6 % (0-2); EOSINOPHILS 0.9 % (0-7); HEMATOCRIT 22.6 % (36.0-48.0); HEMOGLOBIN 7.6 g/dL (12-16); IMMATURE GRANULOCYTES 3.1 % (0-5); LYMPHOCYTES 13.7 % (15-50); MCHC 33.6 g/dL (31.0-37.0); MCV 86.3 fL (80.0-100.0); MEAN PLATELET VOLUME 9.4 fL (7.4-10.4); NEUTROPHILS 73.7 % (40-80); PLATELET COUNT 131 10x3/uL (130-400); RBC 2.62 10x6/uL (4.00-5.40); RDW 15.7 % (11.5-14.5); WBC 10.5 10x3/uL (4.8-10.8)
[2017-12-18 13:57] LABS: APTT 30.1 SECONDS (22.8-39.4); INR 1.09 (0.85-1.17); PROTIME 13.7 SECONDS (11.6-15.0)
[2017-12-19] VITALS (24 sets, daily range): BP systolic 79–131; BP diastolic 48–94
[2017-12-19 02:58] LABS: BASOPHILS 0.1 % (0-2); EOSINOPHILS 1.5 % (0-7); IMMATURE GRANULOCYTES 0.3 % (0-5); LYMPHOCYTES 20.5 % (15-50); MCH 28.3 pg (26.0-34.0); MCHC 32.7 g/dL (31.0-37.0); MCV 86.6 fL (80.0-100.0); MEAN PLATELET VOLUME 9.2 fL (7.4-10.4); MONOCYTES 8.9 % (2-11); NEUTROPHILS 68.7 % (40-80); PLATELET COUNT 135 10x3/uL (130-400); RDW 15.7 % (11.5-14.5)
[2017-12-19 02:59] LABS: HEMATOCRIT 30.3 % (36.0-48.0); HEMOGLOBIN 9.9 g/dL (12-16); WBC 7.3 10x3/uL (4.8-10.8)
[2017-12-19 03:18] LABS: CALC OSMOLALITY 287 mosm/kg (275-300); CALCIUM 7.9 mg/dL (8.5-10.1); CARBON DIOXIDE 29.8 mmol/L (21.0-32.0); CHLORIDE - SERUM 107 mmol/L (98-107); CREATININE - SERUM 0.7 mg/dL (0.6-1.3); GLUCOSE 99 mg/dL (74-106); SODIUM 144 mmol/L (136-145); UREA NITROGEN 15 mg/dL (7-18); eGFR NON AFRICAN AMERICAN 89 mL/min (90-120)
[2017-12-19 03:19] LABS: POTASSIUM - SERUM 3.2 mmol/L (3.5-5.1)
[2017-12-19 10:53] LABS: HEMATOCRIT 30.5 % (36.0-48.0); HEMOGLOBIN 10.1 g/dL (12-16)
[2017-12-19 18:31] LABS: HEMATOCRIT 30.6 % (36.0-48.0); HEMOGLOBIN 10.2 g/dL (12-16)
[2017-12-19 22:43] LABS: CALC OSMOLALITY 280 mosm/kg (275-300); CALCIUM 7.9 mg/dL (8.5-10.1); CARBON DIOXIDE 24.9 mmol/L (21.0-32.0); CHLORIDE - SERUM 106 mmol/L (98-107); CREATININE - SERUM 0.7 mg/dL (0.6-1.3); GLUCOSE 100 mg/dL (74-106); POTASSIUM - SERUM 3.4 mmol/L (3.5-5.1); SODIUM 139 mmol/L (136-145); eGFR NON AFRICAN AMERICAN 89 mL/min (90-120)
[2017-12-19 22:45] LABS: UREA NITROGEN 20 mg/dL (7-18)
[2017-12-20] VITALS (11 sets, daily range): BP systolic 80–124; BP diastolic 47–72
[2017-12-20 04:37] LABS: BASOPHILS 0.2 % (0-2); EOSINOPHILS 3.1 % (0-7); HEMATOCRIT 27.8 % (36.0-48.0); HEMOGLOBIN 9.1 g/dL (12-16); IMMATURE GRANULOCYTES 0.4 % (0-5); LYMPHOCYTES 26.3 % (15-50); MCH 28.8 pg (26.0-34.0); MCHC 32.7 g/dL (31.0-37.0); MEAN PLATELET VOLUME 9.6 fL (7.4-10.4); MONOCYTES 12.8 % (2-11); NEUTROPHILS 57.2 % (40-80); PLATELET COUNT 161 10x3/uL (130-400); RBC 3.16 10x6/uL (4.00-5.40); RDW 16.4 % (11.5-14.5)
[2017-12-20 04:52] LABS: CALC OSMOLALITY 283 mosm/kg (275-300); CALCIUM 8.1 mg/dL (8.5-10.1); CARBON DIOXIDE 25.6 mmol/L (21.0-32.0); CHLORIDE - SERUM 107 mmol/L (98-107); CREATININE - SERUM 0.7 mg/dL (0.6-1.3); GLUCOSE 93 mg/dL (74-106); POTASSIUM - SERUM 3.9 mmol/L (3.5-5.1); SODIUM 141 mmol/L (136-145); UREA NITROGEN 20 mg/dL (7-18); eGFR NON AFRICAN AMERICAN 89 mL/min (90-120)
[2017-12-20 04:55] LABS: WBC 4.9 10x3/uL (4.8-10.8)
[2017-12-20 10:52] LABS: HEMATOCRIT 27.2 % (36.0-48.0); HEMOGLOBIN 9.1 g/dL (12-16)
[2017-12-20 19:05] LABS: HEMATOCRIT 26.3 % (36.0-48.0); HEMOGLOBIN 8.5 g/dL (12-16)
[2017-12-21 04:14] VITALS: BP 84/41
[2017-12-21 06:25] LABS: BASOPHILS 0.4 % (0-2); EOSINOPHILS 3.4 % (0-7); HEMATOCRIT 24.7 % (36.0-48.0); HEMOGLOBIN 7.9 g/dL (12-16); IMMATURE GRANULOCYTES 0.4 % (0-5); LYMPHOCYTES 28.3 % (15-50); MCH 28.1 pg (26.0-34.0); MCV 87.9 fL (80.0-100.0); MEAN PLATELET VOLUME 9.9 fL (7.4-10.4); MONOCYTES 11.1 % (2-11); NEUTROPHILS 56.4 % (40-80); PLATELET COUNT 176 10x3/uL (130-400); RBC 2.81 10x6/uL (4.00-5.40); RDW 16.7 % (11.5-14.5); WBC 4.7 10x3/uL (4.8-10.8)
[2017-12-21 06:40] LABS: ALBUMIN 2.4 g/dL (3.4-5.0); ALKALINE PHOSPHATASE 79 U/L (46-116); ALT (SGPT) 44 U/L (10-68); CALC OSMOLALITY 282 mosm/kg (275-300); CARBON DIOXIDE 24.1 mmol/L (21.0-32.0); CHLORIDE - SERUM 108 mmol/L (98-107); CREATININE - SERUM 0.7 mg/dL (0.6-1.3); GLUCOSE 93 mg/dL (74-106); SODIUM 140 mmol/L (136-145); UREA NITROGEN 25 mg/dL (7-18); eGFR NON AFRICAN AMERICAN 89 mL/min (90-120)
[2017-12-21 06:42] LABS: POTASSIUM - SERUM 3.8 mmol/L (3.5-5.1)
[2017-12-21 08:32] VITALS: BP 112/45
[2017-12-21 11:44] VITALS: BP 96/56
[2017-12-21 21:33] VITALS: BP 100/60
[2017-12-22] VITALS (13 sets, daily range): BP systolic 93–138; BP diastolic 52–97
[2017-12-22 05:29] LABS: BASOPHILS 0.2 % (0-2); EOSINOPHILS 2.8 % (0-7); HEMATOCRIT 20.3 % (36.0-48.0); IMMATURE GRANULOCYTES 0.5 % (0-5); LYMPHOCYTES 19.9 % (15-50); MCH 28.8 pg (26.0-34.0); MCHC 32.5 g/dL (31.0-37.0); MCV 88.6 fL (80.0-100.0); MEAN PLATELET VOLUME 9.1 fL (7.4-10.4); MONOCYTES 11.9 % (2-11); NEUTROPHILS 64.7 % (40-80); RBC 2.29 10x6/uL (4.00-5.40); RDW 16.6 % (11.5-14.5); WBC 5.6 10x3/uL (4.8-10.8)
[2017-12-22 05:37] LABS: HEMOGLOBIN 6.6 g/dL (12-16); PLATELET COUNT 215 10x3/uL (130-400)
[2017-12-22 05:46] LABS: CALC OSMOLALITY 288 mosm/kg (275-300); CALCIUM 8.1 mg/dL (8.5-10.1); CARBON DIOXIDE 22.2 mmol/L (21.0-32.0); CHLORIDE - SERUM 107 mmol/L (98-107); CREATININE - SERUM 0.7 mg/dL (0.6-1.3); GLUCOSE 107 mg/dL (74-106); POTASSIUM - SERUM 3.5 mmol/L (3.5-5.1); SODIUM 141 mmol/L (136-145); eGFR NON AFRICAN AMERICAN 89 mL/min (90-120)
[2017-12-22 05:47] LABS: UREA NITROGEN 34 mg/dL (7-18)
[2017-12-22 16:46] LABS: BASOPHILS 0.1 % (0-2); EOSINOPHILS 0.1 % (0-7); IMMATURE GRANULOCYTES 0.7 % (0-5); LYMPHOCYTES 11.8 % (15-50); MCH 29.1 pg (26.0-34.0); MCHC 32.6 g/dL (31.0-37.0); MCV 89.4 fL (80.0-100.0); MEAN PLATELET VOLUME 9.9 fL (7.4-10.4); NEUTROPHILS 76.3 % (40-80)
[2017-12-22 16:48] LABS: HEMATOCRIT 34.4 % (36.0-48.0); HEMOGLOBIN 11.2 g/dL (12-16); PLATELET COUNT 284 10x3/uL (130-400); RBC 3.85 10x6/uL (4.00-5.40); WBC 7.1 10x3/uL (4.8-10.8)
[2017-12-22 17:02] LABS: APTT 26.8 SECONDS (22.8-39.4); INR 1.07 (0.85-1.17); PROTIME 13.5 SECONDS (11.6-15.0)
[2017-12-22 17:07] LABS: ANION GAP 17.8 mmol/L (8-16); CARBON DIOXIDE 18.3 mmol/L (21.0-32.0); CREATININE - SERUM 1.1 mg/dL (0.6-1.3); POTASSIUM - SERUM 4.1 mmol/L (3.5-5.1)
[2017-12-22 23:57] LABS: HEMOGLOBIN 9.3 g/dL (12-16); LYMPHOCYTES 7.8 % (15-50); MCH 30.3 pg (26.0-34.0); MCHC 34.7 g/dL (31.0-37.0); MEAN PLATELET VOLUME 9.2 fL (7.4-10.4); NEUTROPHILS 80.4 % (40-80); PLATELET COUNT 230 10x3/uL (130-400); RDW 16.7 % (11.5-14.5)
[2017-12-22 23:58] LABS: HEMATOCRIT 26.8 % (36.0-48.0); MCV 87.3 fL (80.0-100.0); RBC 3.07 10x6/uL (4.00-5.40)
[2017-12-23] VITALS (62 sets, daily range): BP systolic 73–116; BP diastolic 38–80
[2017-12-23 04:22] LABS: BASOPHILS 0.2 % (0-2); EOSINOPHILS 0 % (0-7); HEMATOCRIT 29.3 % (36.0-48.0); HEMOGLOBIN 9.8 g/dL (12-16); IMMATURE GRANULOCYTES 0.2 % (0-5); LYMPHOCYTES 8.1 % (15-50); MCH 29.5 pg (26.0-34.0); MCHC 33.4 g/dL (31.0-37.0); MCV 88.3 fL (80.0-100.0); MEAN PLATELET VOLUME 9.8 fL (7.4-10.4); MONOCYTES 11.7 % (2-11); NEUTROPHILS 79.8 % (40-80); PLATELET COUNT 225 10x3/uL (130-400); RBC 3.32 10x6/uL (4.00-5.40); RDW 16.2 % (11.5-14.5); WBC 5.6 10x3/uL (4.8-10.8)
[2017-12-23 04:38] LABS: ALBUMIN 1.8 g/dL (3.4-5.0); BILIRUBIN - TOTAL 0.54 mg/dL (0.2-1.3); CARBON DIOXIDE 14.6 mmol/L (21.0-32.0); CREATININE - SERUM 2.1 mg/dL (0.6-1.3); POTASSIUM - SERUM 5.6 mmol/L (3.5-5.1); PROTEIN - SERUM 4.3 g/dL (6.4-8.2)
[2017-12-23 04:39] LABS: CALCIUM 6.9 mg/dL (8.5-10.1)
[2017-12-23 12:39] LABS: BASOPHILS 0.3 % (0-2); EOSINOPHILS 0.5 % (0-7); LYMPHOCYTES 12.9 % (15-50); MCH 28.8 pg (26.0-34.0); MCHC 32.7 g/dL (31.0-37.0); MCV 88.1 fL (80.0-100.0); MEAN PLATELET VOLUME 9.9 fL (7.4-10.4); MONOCYTES 12.1 % (2-11); NEUTROPHILS 74.2 % (40-80); RDW 16.4 % (11.5-14.5)
[2017-12-23 12:53] LABS: RBC 2.43 10x6/uL (4.00-5.40); WBC 3.7 10x3/uL (4.8-10.8)
[2017-12-23 12:54] LABS: HEMATOCRIT 21.4 % (36.0-48.0); PLATELET COUNT 164 10x3/uL (130-400)
[2017-12-23 12:55] LABS: APTT 55.3 SECONDS (22.8-39.4); INR 1.93 (0.85-1.17); PROTIME 21.5 SECONDS (11.6-15.0)
[2017-12-23 13:06] LABS: ANION GAP 18.4 mmol/L (8-16); BILIRUBIN - TOTAL 0.52 mg/dL (0.2-1.3); CARBON DIOXIDE 14.5 mmol/L (21.0-32.0); CREATININE - SERUM 2.5 mg/dL (0.6-1.3); POTASSIUM - SERUM 4.9 mmol/L (3.5-5.1); PROTEIN - SERUM 4.3 g/dL (6.4-8.2)
[2017-12-23 13:08] LABS: ALBUMIN 2.3 g/dL (3.4-5.0)
[2017-12-23 14:52] LABS: APPEARANCE HAZY (CLEAR); BILIRUBIN NEGATIVE (NEGATIVE); COLOR DK YELLOW (YELLOW); GLUCOSE NEGATIVE (NEGATIVE); KETONE NEGATIVE (NEGATIVE); NITRITE NEGATIVE (NEGATIVE); PROTEIN 1+ mg/dL (NEGATIVE); UROBILINOGEN NORMAL (NORMAL)
[2017-12-23 14:54] LABS: BACTERIA MODERATE /hpf (NONE SEEN); RED CELLS - URINE 0-5 /hpf (0-5); WHITE CELLS - URINE OCC /hpf (0-5)
[2017-12-23 14:55] LABS: AMORPHOUS SEDIMENT <1+ /lpf (NONE SEEN)
[2017-12-23 17:50] LABS: BASOPHILS 0.3 % (0-2); EOSINOPHILS 0.7 % (0-7); IMMATURE GRANULOCYTES 1.3 % (0-5); LYMPHOCYTES 14.8 % (15-50); MCHC 32.9 g/dL (31.0-37.0); MCV 88.3 fL (80.0-100.0); MEAN PLATELET VOLUME 10.2 fL (7.4-10.4); MONOCYTES 10.8 % (2-11); NEUTROPHILS 72.1 % (40-80); PLATELET COUNT 153 10x3/uL (130-400); RDW 15.7 % (11.5-14.5); WBC 3.1 10x3/uL (4.8-10.8)
[2017-12-23 17:53] LABS: HEMATOCRIT 28.6 % (36.0-48.0); HEMOGLOBIN 9.4 g/dL (12-16); RBC 3.24 10x6/uL (4.00-5.40)
[2017-12-24] VITALS (79 sets, daily range): BP systolic 93–125; BP diastolic 49–101
[2017-12-24 04:03] LABS: BASOPHILS 0.5 % (0-2); EOSINOPHILS 0 % (0-7); HEMATOCRIT 30.9 % (36.0-48.0); HEMOGLOBIN 10.3 g/dL (12-16); IMMATURE GRANULOCYTES 6.7 % (0-5); LYMPHOCYTES 7.4 % (15-50); MCHC 33.3 g/dL (31.0-37.0); MEAN PLATELET VOLUME 9.8 fL (7.4-10.4); MONOCYTES 8.5 % (2-11); NEUTROPHILS 76.9 % (40-80); PLATELET COUNT 159 10x3/uL (130-400); RBC 3.55 10x6/uL (4.00-5.40); RDW 16.3 % (11.5-14.5)
[2017-12-24 04:15] LABS: WBC 3.9 10x3/uL (4.8-10.8)
[2017-12-24 04:21] LABS: INR 1.63 (0.85-1.17); PROTIME 18.8 SECONDS (11.6-15.0)
[2017-12-24 04:31] LABS: BILIRUBIN - TOTAL 0.8 mg/dL (0.2-1.3); POTASSIUM - SERUM 4.2 mmol/L (3.5-5.1); PROTEIN - SERUM 4.7 g/dL (6.4-8.2)
[2017-12-24 04:36] LABS: ANION GAP 16.3 mmol/L (8-16); CARBON DIOXIDE 20.9 mmol/L (21.0-32.0)
[2017-12-24 04:37] LABS: CALCIUM 6.8 mg/dL (8.5-10.1)
[2017-12-24 10:14] LABS: PHOSPHOROUS 4.9 mg/dL (2.5-4.9)
[2017-12-24 11:53] LABS: HEMATOCRIT 28.6 % (36.0-48.0); HEMOGLOBIN 9.6 g/dL (12-16)
[2017-12-24 12:10] LABS: APTT 46.6 SECONDS (22.8-39.4); INR 1.29 (0.85-1.17); PROTIME 15.7 SECONDS (11.6-15.0)
[2017-12-24 12:32] LABS: ALBUMIN 2.1 g/dL (3.4-5.0); ANION GAP 18.1 mmol/L (8-16); BILIRUBIN - TOTAL 0.96 mg/dL (0.2-1.3); CALCIUM 6.9 mg/dL (8.5-10.1); CARBON DIOXIDE 22.6 mmol/L (21.0-32.0); CREATININE - SERUM 1.9 mg/dL (0.6-1.3); POTASSIUM - SERUM 3.7 mmol/L (3.5-5.1)
[2017-12-24 19:40] LABS: HEMATOCRIT 28.2 % (36.0-48.0); HEMOGLOBIN 9.3 g/dL (12-16)
[2017-12-25] VITALS (24 sets, daily range): BP systolic 95–119; BP diastolic 54–78
[2017-12-25 05:06] LABS: BASOPHILS 0 % (0-2); EOSINOPHILS 1.2 % (0-7); HEMATOCRIT 28.6 % (36.0-48.0); HEMOGLOBIN 9.5 g/dL (12-16); IMMATURE GRANULOCYTES 1.4 % (0-5); LYMPHOCYTES 5.9 % (15-50); MCH 29.1 pg (26.0-34.0); MCHC 33.2 g/dL (31.0-37.0); MCV 87.7 fL (80.0-100.0); MEAN PLATELET VOLUME 9.9 fL (7.4-10.4); MONOCYTES 2.4 % (2-11); NEUTROPHILS 89.1 % (40-80); PLATELET COUNT 138 10x3/uL (130-400); RBC 3.26 10x6/uL (4.00-5.40); RDW 16.2 % (11.5-14.5)
[2017-12-25 05:25] LABS: ALBUMIN 1.8 g/dL (3.4-5.0); ANION GAP 9.9 mmol/L (8-16); BILIRUBIN - TOTAL 0.8 mg/dL (0.2-1.3); CALCIUM 7.6 mg/dL (8.5-10.1); CARBON DIOXIDE 27.6 mmol/L (21.0-32.0); POTASSIUM - SERUM 3.5 mmol/L (3.5-5.1); PROTEIN - SERUM 4.8 g/dL (6.4-8.2)
[2017-12-25 05:29] LABS: CREATININE - SERUM 1.4 mg/dL (0.6-1.3); MAGNESIUM - SERUM 2.2 mg/dL (1.8-2.4); PHOSPHOROUS 2.6 mg/dL (2.5-4.9)
[2017-12-25 05:33] LABS: WBC 5.1 10x3/uL (4.8-10.8)
[2017-12-25 05:37] LABS: INR 1.17 (0.85-1.17); PROTIME 14.5 SECONDS (11.6-15.0)
[2017-12-25 07:03] LABS: C-REACTIVE PROTEIN 53.8 mg/dL (0.0-0.9)
[2017-12-25 13:05] LABS: POTASSIUM - SERUM 3.9 mmol/L (3.5-5.1); VANCOMYCIN - TROUGH 5.6 ug/mL (10.0-20.0)
[2017-12-26] VITALS (24 sets, daily range): BP systolic 99–141; BP diastolic 52–94
[2017-12-26 04:44] LABS: BASOPHILS 0.2 % (0-2); EOSINOPHILS 2.7 % (0-7); HEMATOCRIT 27.3 % (36.0-48.0); HEMOGLOBIN 8.7 g/dL (12-16); IMMATURE GRANULOCYTES 0.7 % (0-5); LYMPHOCYTES 6.8 % (15-50); MCH 28.1 pg (26.0-34.0); MCHC 31.9 g/dL (31.0-37.0); MCV 88.1 fL (80.0-100.0); MONOCYTES 7.1 % (2-11); NEUTROPHILS 82.5 % (40-80); PLATELET COUNT 113 10x3/uL (130-400); RDW 16.4 % (11.5-14.5); WBC 4.1 10x3/uL (4.8-10.8)
[2017-12-26 04:54] LABS: INR 1.02 (0.85-1.17)
[2017-12-26 05:00] LABS: ALBUMIN 1.5 g/dL (3.4-5.0); ANION GAP 8.5 mmol/L (8-16); BILIRUBIN - TOTAL 0.9 mg/dL (0.2-1.3); CALCIUM 7.6 mg/dL (8.5-10.1); CARBON DIOXIDE 28.1 mmol/L (21.0-32.0); CREATININE - SERUM 1.1 mg/dL (0.6-1.3); MAGNESIUM - SERUM 1.9 mg/dL (1.8-2.4); PHOSPHOROUS 1.4 mg/dL (2.5-4.9); POTASSIUM - SERUM 3.6 mmol/L (3.5-5.1); PROTEIN - SERUM 4.6 g/dL (6.4-8.2)
[2017-12-27] VITALS (24 sets, daily range): BP systolic 98–137; BP diastolic 57–87
[2017-12-27 04:30] LABS: BASOPHILS 0.2 % (0-2); EOSINOPHILS 2.3 % (0-7); HEMATOCRIT 26.1 % (36.0-48.0); HEMOGLOBIN 8.3 g/dL (12-16); IMMATURE GRANULOCYTES 3.2 % (0-5); LYMPHOCYTES 8.1 % (15-50); MCH 28.6 pg (26.0-34.0); MCHC 31.8 g/dL (31.0-37.0); MEAN PLATELET VOLUME 10.2 fL (7.4-10.4); MONOCYTES 6.8 % (2-11); NEUTROPHILS 79.4 % (40-80); PLATELET COUNT 105 10x3/uL (130-400); RDW 16.9 % (11.5-14.5); WBC 5.7 10x3/uL (4.8-10.8)
[2017-12-27 04:33] LABS: ALBUMIN 1.4 g/dL (3.4-5.0); ALKALINE PHOSPHATASE 71 U/L (46-116); C-REACTIVE PROTEIN 27.1 mg/dL (0.0-0.9); CALC OSMOLALITY 295 mosm/kg (275-300); CALCIUM 7.3 mg/dL (8.5-10.1); CARBON DIOXIDE 29.2 mmol/L (21.0-32.0); CHLORIDE - SERUM 113 mmol/L (98-107); GLUCOSE 121 mg/dL (74-106); MAGNESIUM - SERUM 1.6 mg/dL (1.8-2.4); POTASSIUM - SERUM 3.7 mmol/L (3.5-5.1); PROTEIN - SERUM 3.7 g/dL (6.4-8.2); SODIUM 147 mmol/L (136-145); UREA NITROGEN 21 mg/dL (7-18)
[2017-12-27 04:34] LABS: ALT (SGPT) 146 U/L (10-68); CREATININE - SERUM 0.8 mg/dL (0.6-1.3); PHOSPHOROUS 2.2 mg/dL (2.5-4.9); eGFR NON AFRICAN AMERICAN 76 mL/min (90-120)
[2017-12-28] VITALS (19 sets, daily range): BP systolic 109–146; BP diastolic 52–81
[2017-12-28 04:43] LABS: ALBUMIN 1.4 g/dL (3.4-5.0); ANION GAP 9.6 mmol/L (8-16); BILIRUBIN - TOTAL 0.65 mg/dL (0.2-1.3); CALCIUM 7.5 mg/dL (8.5-10.1); CARBON DIOXIDE 30.6 mmol/L (21.0-32.0); CREATININE - SERUM 0.9 mg/dL (0.6-1.3); MAGNESIUM - SERUM 1.4 mg/dL (1.8-2.4); PHOSPHOROUS 2.4 mg/dL (2.5-4.9); POTASSIUM - SERUM 3.2 mmol/L (3.5-5.1)
[2017-12-28 04:45] LABS: PROTEIN - SERUM 4.7 g/dL (6.4-8.2)
[2017-12-28 05:04] LABS: HEMATOCRIT 30.7 % (36.0-48.0); MCH 29.4 pg (26.0-34.0); MCHC 32.6 g/dL (31.0-37.0); MCV 90.3 fL (80.0-100.0); MEAN PLATELET VOLUME 10.8 fL (7.4-10.4); PLATELET COUNT 124 10x3/uL (130-400); RDW 16.1 % (11.5-14.5); WBC 6.5 10x3/uL (4.8-10.8)
[2017-12-28 07:36] LABS: EOSINOPHILS 1 % (0-7); LYMPHOCYTES 17 % (15-50); MONOCYTES 13 % (2-11); NEUTROPHILS 52 % (40-80); PLATELET ESTIMATE NORMAL; ROULEAUX 1+
[2017-12-29] VITALS (8 sets, daily range): BP systolic 120–151; BP diastolic 58–92
[2017-12-29 05:36] LABS: HEMATOCRIT 29.9 % (36.0-48.0); HEMOGLOBIN 9.7 g/dL (12-16); MCHC 32.4 g/dL (31.0-37.0); MCV 89.3 fL (80.0-100.0); MEAN PLATELET VOLUME 11.1 fL (7.4-10.4); RBC 3.35 10x6/uL (4.00-5.40); RDW 15.9 % (11.5-14.5); WBC 7.8 10x3/uL (4.8-10.8)
[2017-12-29 05:37] LABS: PLATELET COUNT 165 10x3/uL (130-400)
[2017-12-29 06:02] LABS: ALBUMIN 1.5 g/dL (3.4-5.0); ANION GAP 10.1 mmol/L (8-16); BILIRUBIN - TOTAL 0.82 mg/dL (0.2-1.3); CALCIUM 7.8 mg/dL (8.5-10.1); CREATININE - SERUM 0.9 mg/dL (0.6-1.3); MAGNESIUM - SERUM 1.7 mg/dL (1.8-2.4); PHOSPHOROUS 2.8 mg/dL (2.5-4.9); POTASSIUM - SERUM 3.1 mmol/L (3.5-5.1); PROTEIN - SERUM 4.6 g/dL (6.4-8.2)
[2017-12-29 07:50] LABS: EOSINOPHILS 1 % (0-7); LYMPHOCYTES 14 % (15-50); MONOCYTES 10 % (2-11); NEUTROPHILS 62 % (40-80); PLATELET ESTIMATE NORMAL
[2017-12-30 06:07] VITALS: BP 111/57
[2017-12-30 07:14] LABS: ALBUMIN 1.6 g/dL (3.4-5.0); BILIRUBIN - TOTAL 0.58 mg/dL (0.2-1.3); CALCIUM 7.9 mg/dL (8.5-10.1); CARBON DIOXIDE 32.2 mmol/L (21.0-32.0); CREATININE - SERUM 0.9 mg/dL (0.6-1.3); MAGNESIUM - SERUM 1.5 mg/dL (1.8-2.4); PHOSPHOROUS 2.7 mg/dL (2.5-4.9); PROTEIN - SERUM 4.6 g/dL (6.4-8.2)
[2017-12-30 07:23] LABS: ANION GAP 5.8 mmol/L (8-16)
[2017-12-30 07:28] LABS: BASOPHILS 0.4 % (0-2); EOSINOPHILS 1.3 % (0-7); HEMATOCRIT 27.4 % (36.0-48.0); HEMOGLOBIN 8.9 g/dL (12-16); LYMPHOCYTES 8.3 % (15-50); MCH 28.9 pg (26.0-34.0); MCHC 32.5 g/dL (31.0-37.0); MEAN PLATELET VOLUME 10.7 fL (7.4-10.4); MONOCYTES 14.2 % (2-11); NEUTROPHILS 74.8 % (40-80); PLATELET COUNT 219 10x3/uL (130-400); RBC 3.08 10x6/uL (4.00-5.40); RDW 16.2 % (11.5-14.5); WBC 6.8 10x3/uL (4.8-10.8)
[2017-12-30 08:59] VITALS: BP 119/56
[2017-12-30 12:48] VITALS: BP 114/55
[2017-12-30 16:15] VITALS: BP 120/54
[2017-12-30 20:00] VITALS: BP 101/43
[2017-12-31] VITALS: BP 102/45
[2017-12-31 04:00] VITALS: BP 120/59
[2017-12-31 06:20] LABS: BASOPHILS 0.4 % (0-2); EOSINOPHILS 1.5 % (0-7); HEMATOCRIT 27.9 % (36.0-48.0); HEMOGLOBIN 8.9 g/dL (12-16); IMMATURE GRANULOCYTES 1.9 % (0-5); LYMPHOCYTES 6.2 % (15-50); MCH 28.6 pg (26.0-34.0); MCHC 31.9 g/dL (31.0-37.0); MCV 89.7 fL (80.0-100.0); MEAN PLATELET VOLUME 10.2 fL (7.4-10.4); MONOCYTES 9.6 % (2-11); NEUTROPHILS 80.4 % (40-80); RBC 3.11 10x6/uL (4.00-5.40); RDW 16.3 % (11.5-14.5); WBC 7.5 10x3/uL (4.8-10.8)
[2017-12-31 06:24] LABS: PLATELET COUNT 267 10x3/uL (130-400)
[2017-12-31 06:41] LABS: ALBUMIN 1.5 g/dL (3.4-5.0); ANION GAP 12.1 mmol/L (8-16); BILIRUBIN - TOTAL 0.52 mg/dL (0.2-1.3); CALCIUM 7.3 mg/dL (8.5-10.1); CARBON DIOXIDE 26.9 mmol/L (21.0-32.0); CREATININE - SERUM 1.1 mg/dL (0.6-1.3); MAGNESIUM - SERUM 1.3 mg/dL (1.8-2.4); PROTEIN - SERUM 4.5 g/dL (6.4-8.2)
[2017-12-31 07:52] VITALS: BP 91/45
[2017-12-31 12:02] VITALS: BP 105/54
[2017-12-31 17:14] VITALS: BP 117/58
[2017-12-31 21:12] VITALS: BP 130/42
[2018-01-01 04:01] VITALS: BP 111/49
[2018-01-01 05:59] LABS: BASOPHILS 0.5 % (0-2); EOSINOPHILS 0.8 % (0-7); HEMATOCRIT 25.9 % (36.0-48.0); HEMOGLOBIN 8.3 g/dL (12-16); IMMATURE GRANULOCYTES 1.9 % (0-5); LYMPHOCYTES 8.6 % (15-50); MCH 28.6 pg (26.0-34.0); MCV 89.3 fL (80.0-100.0); MONOCYTES 9.9 % (2-11); NEUTROPHILS 78.3 % (40-80); PLATELET COUNT 300 10x3/uL (130-400); RDW 16.6 % (11.5-14.5); WBC 8.5 10x3/uL (4.8-10.8)
[2018-01-01 06:26] LABS: ALBUMIN 1.4 g/dL (3.4-5.0); BILIRUBIN - TOTAL 0.35 mg/dL (0.2-1.3); CALCIUM 7.2 mg/dL (8.5-10.1); CARBON DIOXIDE 27.7 mmol/L (21.0-32.0); PROTEIN - SERUM 4.5 g/dL (6.4-8.2)
[2018-01-01 06:33] LABS: ANION GAP 9.2 mmol/L (8-16); POTASSIUM - SERUM 2.9 mmol/L (3.5-5.1)
[2018-01-01 08:59] VITALS: BP 118/47
[2018-01-01 13:09] VITALS: BP 118/46
[2018-01-01 16:14] VITALS: BP 127/60
[2018-01-01 22:35] VITALS: BP 109/50
[2018-01-02 04:57] LABS: BASOPHILS 0.5 % (0-2); EOSINOPHILS 2.4 % (0-7); HEMATOCRIT 27.2 % (36.0-48.0); HEMOGLOBIN 8.5 g/dL (12-16); IMMATURE GRANULOCYTES 1.4 % (0-5); LYMPHOCYTES 10.1 % (15-50); MCH 28.2 pg (26.0-34.0); MCHC 31.3 g/dL (31.0-37.0); MCV 90.4 fL (80.0-100.0); MEAN PLATELET VOLUME 9.7 fL (7.4-10.4); MONOCYTES 9.9 % (2-11); NEUTROPHILS 75.7 % (40-80); RBC 3.01 10x6/uL (4.00-5.40); RDW 16.5 % (11.5-14.5); WBC 8.9 10x3/uL (4.8-10.8)
[2018-01-02 05:01] LABS: PLATELET COUNT 365 10x3/uL (130-400)
[2018-01-02 05:13] LABS: ALBUMIN 1.5 g/dL (3.4-5.0); ANION GAP 11.4 mmol/L (8-16); BILIRUBIN - TOTAL 0.4 mg/dL (0.2-1.3); CALCIUM 7.3 mg/dL (8.5-10.1); PROTEIN - SERUM 4.9 g/dL (6.4-8.2)
[2018-01-02 05:14] LABS: CREATININE - SERUM 1.3 mg/dL (0.6-1.3); POTASSIUM - SERUM 3.4 mmol/L (3.5-5.1)
[2018-01-02 08:25] VITALS: BP 91/39
[2018-01-02 12:11] VITALS: BP 101/43
[2018-01-02 16:42] VITALS: BP 108/54
[2018-01-02 20:00] VITALS: BP 122/52
[2018-01-03] VITALS: BP 92/45
[2018-01-03 04:00] VITALS: BP 95/38
[2018-01-03 04:39] LABS: BASOPHILS 0.7 % (0-2); EOSINOPHILS 2.3 % (0-7); HEMATOCRIT 26.6 % (36.0-48.0); HEMOGLOBIN 8.5 g/dL (12-16); IMMATURE GRANULOCYTES 1.2 % (0-5); LYMPHOCYTES 11.5 % (15-50); MCH 28.9 pg (26.0-34.0); MCV 90.5 fL (80.0-100.0); MEAN PLATELET VOLUME 9.4 fL (7.4-10.4); MONOCYTES 7.4 % (2-11); NEUTROPHILS 76.9 % (40-80); PLATELET COUNT 437 10x3/uL (130-400); RBC 2.94 10x6/uL (4.00-5.40); RDW 16.7 % (11.5-14.5); WBC 7.3 10x3/uL (4.8-10.8)
[2018-01-03 05:06] LABS: ANION GAP 12.1 mmol/L (8-16); BILIRUBIN - TOTAL 0.4 mg/dL (0.2-1.3); CALCIUM 7.6 mg/dL (8.5-10.1); POTASSIUM - SERUM 4.1 mmol/L (3.5-5.1); PROTEIN - SERUM 4.7 g/dL (6.4-8.2)
[2018-01-03 05:08] LABS: ALBUMIN 2.1 g/dL (3.4-5.0); CREATININE - SERUM 1.7 mg/dL (0.6-1.3)
[2018-01-03 08:11] LABS: INR 1.07 (0.85-1.17); PROTIME 13.5 SECONDS (11.6-15.0)
[2018-01-03 08:19] LABS: MAGNESIUM - SERUM 1.6 mg/dL (1.8-2.4); PHOSPHOROUS 4.6 mg/dL (2.5-4.9)
[2018-01-03 09:49] VITALS: BP 109/44
[2018-01-03 14:56] VITALS: BP 121/51
[2018-01-03 17:32] VITALS: BP 124/55
[2018-01-03 20:00] VITALS: BP 95/40
[2018-01-04 04:00] VITALS: BP 156/75
[2018-01-04 05:02] LABS: BASOPHILS 0.4 % (0-2); EOSINOPHILS 1.7 % (0-7); HEMATOCRIT 25.5 % (36.0-48.0); LYMPHOCYTES 12.6 % (15-50); MCH 28.3 pg (26.0-34.0); MCHC 31.4 g/dL (31.0-37.0); MCV 90.1 fL (80.0-100.0); MEAN PLATELET VOLUME 9.1 fL (7.4-10.4); MONOCYTES 11.6 % (2-11); NEUTROPHILS 72.7 % (40-80); PLATELET COUNT 443 10x3/uL (130-400); RBC 2.83 10x6/uL (4.00-5.40); RDW 16.6 % (11.5-14.5); WBC 7.8 10x3/uL (4.8-10.8)
[2018-01-04 05:23] LABS: ALBUMIN 2.3 g/dL (3.4-5.0); ANION GAP 13.9 mmol/L (8-16); BILIRUBIN - TOTAL 0.36 mg/dL (0.2-1.3); CALCIUM 7.4 mg/dL (8.5-10.1); CARBON DIOXIDE 25.3 mmol/L (21.0-32.0); CREATININE - SERUM 1.3 mg/dL (0.6-1.3); MAGNESIUM - SERUM 1.5 mg/dL (1.8-2.4); PROTEIN - SERUM 5.2 g/dL (6.4-8.2)
[2018-01-04 05:28] LABS: POTASSIUM - SERUM 3.2 mmol/L (3.5-5.1)
[2018-01-04 08:51] VITALS: BP 91/43
[2018-01-04 12:01] VITALS: BP 129/62
[2018-01-04 16:04] VITALS: BP 125/62
[2018-01-04 20:00] VITALS: BP 102/45
[2018-01-05 05:56] LABS: BASOPHILS 0.6 % (0-2); EOSINOPHILS 2.2 % (0-7); HEMATOCRIT 25.2 % (36.0-48.0); HEMOGLOBIN 7.9 g/dL (12-16); IMMATURE GRANULOCYTES 1.5 % (0-5); LYMPHOCYTES 17.8 % (15-50); MCH 28.3 pg (26.0-34.0); MCHC 31.3 g/dL (31.0-37.0); MCV 90.3 fL (80.0-100.0); MEAN PLATELET VOLUME 9.1 fL (7.4-10.4); MONOCYTES 15.8 % (2-11); NEUTROPHILS 62.1 % (40-80); PLATELET COUNT 423 10x3/uL (130-400); RBC 2.79 10x6/uL (4.00-5.40); RDW 16.6 % (11.5-14.5); WBC 6.8 10x3/uL (4.8-10.8)
[2018-01-05 06:17] VITALS: BP 134/62
[2018-01-05 07:51] LABS: ALBUMIN 2.7 g/dL (3.4-5.0); ANION GAP 13.5 mmol/L (8-16); BILIRUBIN - TOTAL 0.32 mg/dL (0.2-1.3); CALCIUM 7.7 mg/dL (8.5-10.1); CARBON DIOXIDE 25.8 mmol/L (21.0-32.0); CREATININE - SERUM 1.5 mg/dL (0.6-1.3); MAGNESIUM - SERUM 1.8 mg/dL (1.8-2.4); PHOSPHOROUS 3.1 mg/dL (2.5-4.9); POTASSIUM - SERUM 4.3 mmol/L (3.5-5.1); PROTEIN - SERUM 5.2 g/dL (6.4-8.2)
[2018-01-05 07:59] VITALS: BP 104/50
[2018-01-05 12:14] VITALS: BP 120/64
[2018-01-05 15:51] VITALS: BP 134/67
[2018-01-05 19:58] VITALS: BP 104/52
[2018-01-06 02:00] VITALS: BP 98/64
[2018-01-06 06:01] LABS: BASOPHILS 0.4 % (0-2); EOSINOPHILS 2.2 % (0-7); HEMATOCRIT 23.8 % (36.0-48.0); IMMATURE GRANULOCYTES 1.5 % (0-5); LYMPHOCYTES 15.1 % (15-50); MCH 28.7 pg (26.0-34.0); MCHC 31.5 g/dL (31.0-37.0); MCV 91.2 fL (80.0-100.0); MEAN PLATELET VOLUME 9.3 fL (7.4-10.4); MONOCYTES 12.3 % (2-11); NEUTROPHILS 68.5 % (40-80); PLATELET COUNT 437 10x3/uL (130-400); RBC 2.61 10x6/uL (4.00-5.40); WBC 7.4 10x3/uL (4.8-10.8)
[2018-01-06 06:31] LABS: HEMOGLOBIN 7.5 g/dL (12-16)
[2018-01-06 07:00] LABS: ALBUMIN 2.8 g/dL (3.4-5.0); BILIRUBIN - TOTAL 0.4 mg/dL (0.2-1.3); CALCIUM 7.9 mg/dL (8.5-10.1); CARBON DIOXIDE 25.9 mmol/L (21.0-32.0); MAGNESIUM - SERUM 1.7 mg/dL (1.8-2.4); POTASSIUM - SERUM 3.9 mmol/L (3.5-5.1); PROTEIN - SERUM 5.7 g/dL (6.4-8.2)
[2018-01-06 07:12] LABS: PHOSPHOROUS 4.6 mg/dL (2.5-4.9)
[2018-01-06 09:02] VITALS: BP 129/72
[2018-01-06 13:57] VITALS: BP 112/54
[2018-01-06 17:20] VITALS: BP 133/72
[2018-01-06 22:29] VITALS: BP 105/50
[2018-01-07] VITALS (7 sets, daily range): BP systolic 112–139; BP diastolic 48–79
[2018-01-07 03:12] LABS: ALP - ISO (ALP) 96 IU/L (39-117); ALP - ISO (BONE) FRACTION 28 % (14-68); ALP - ISO (LIVER) FRACTION 70 % (18-85); ALP - ISO(INTESTINAL) FRACTION 2 % (0-18)
[2018-01-07 05:32] LABS: BASOPHILS 0.6 % (0-2); EOSINOPHILS 1.2 % (0-7); HEMATOCRIT 22.6 % (36.0-48.0); IMMATURE GRANULOCYTES 2.1 % (0-5); LYMPHOCYTES 10.6 % (15-50); MCH 28.3 pg (26.0-34.0); MCHC 31.4 g/dL (31.0-37.0); MEAN PLATELET VOLUME 8.7 fL (7.4-10.4); MONOCYTES 13.9 % (2-11); NEUTROPHILS 71.6 % (40-80); PLATELET COUNT 425 10x3/uL (130-400); RBC 2.51 10x6/uL (4.00-5.40); RDW 17.1 % (11.5-14.5); WBC 8.6 10x3/uL (4.8-10.8)
[2018-01-07 05:38] LABS: HEMOGLOBIN 7.1 g/dL (12-16)
[2018-01-07 07:22] LABS: ALBUMIN 2.8 g/dL (3.4-5.0); ANION GAP 13.9 mmol/L (8-16); BILIRUBIN - TOTAL 0.43 mg/dL (0.2-1.3); CARBON DIOXIDE 24.8 mmol/L (21.0-32.0); CREATININE - SERUM 2.3 mg/dL (0.6-1.3); MAGNESIUM - SERUM 1.9 mg/dL (1.8-2.4); PHOSPHOROUS 3.7 mg/dL (2.5-4.9); POTASSIUM - SERUM 3.7 mmol/L (3.5-5.1); PROTEIN - SERUM 5.6 g/dL (6.4-8.2)
[2018-01-08] VITALS (17 sets, daily range): BP systolic 80–150; BP diastolic 54–86
[2018-01-08 06:23] LABS: BASOPHILS 0.9 % (0-2); EOSINOPHILS 1.7 % (0-7); IMMATURE GRANULOCYTES 2.7 % (0-5); LYMPHOCYTES 12.3 % (15-50); MCH 28.5 pg (26.0-34.0); MCHC 32.1 g/dL (31.0-37.0); MCV 88.6 fL (80.0-100.0); MEAN PLATELET VOLUME 8.9 fL (7.4-10.4); MONOCYTES 16.6 % (2-11); NEUTROPHILS 65.8 % (40-80); PLATELET COUNT 382 10x3/uL (130-400); RDW 16.5 % (11.5-14.5); WBC 9.6 10x3/uL (4.8-10.8)
[2018-01-08 06:31] LABS: RBC 3.16 10x6/uL (4.00-5.40)
[2018-01-08 06:39] LABS: ALBUMIN 2.9 g/dL (3.4-5.0); ANION GAP 12.8 mmol/L (8-16); BILIRUBIN - TOTAL 0.7 mg/dL (0.2-1.3); CARBON DIOXIDE 26.1 mmol/L (21.0-32.0); CREATININE - SERUM 1.8 mg/dL (0.6-1.3); MAGNESIUM - SERUM 1.7 mg/dL (1.8-2.4); PHOSPHOROUS 4.2 mg/dL (2.5-4.9); POTASSIUM - SERUM 3.9 mmol/L (3.5-5.1); PROTEIN - SERUM 5.7 g/dL (6.4-8.2)
[2018-01-08 14:00] LABS: BASOPHILS 0.8 % (0-2); EOSINOPHILS 0.5 % (0-7); HEMATOCRIT 32.2 % (36.0-48.0); HEMOGLOBIN 10.3 g/dL (12-16); LYMPHOCYTES 9.6 % (15-50); MCH 28.8 pg (26.0-34.0); MCV 89.9 fL (80.0-100.0); MEAN PLATELET VOLUME 9.2 fL (7.4-10.4); MONOCYTES 6.4 % (2-11); NEUTROPHILS 79.7 % (40-80); PLATELET COUNT 439 10x3/uL (130-400); RBC 3.58 10x6/uL (4.00-5.40); RDW 16.9 % (11.5-14.5); WBC 8.6 10x3/uL (4.8-10.8)
[2018-01-08 14:13] LABS: ANION GAP 12.9 mmol/L (8-16); CALCIUM 7.4 mg/dL (8.5-10.1); CARBON DIOXIDE 25.9 mmol/L (21.0-32.0); CREATININE - SERUM 1.6 mg/dL (0.6-1.3); MAGNESIUM - SERUM 1.6 mg/dL (1.8-2.4); PHOSPHOROUS 4.8 mg/dL (2.5-4.9); POTASSIUM - SERUM 4.8 mmol/L (3.5-5.1)
[2018-01-08 23:18] LABS: APTT 37.4 SECONDS (22.8-39.4); INR 1.44 (0.85-1.17); PROTIME 17.1 SECONDS (11.6-15.0)
[2018-01-09] VITALS (25 sets, daily range): BP systolic 83–110; BP diastolic 42–65
[2018-01-09 06:27] LABS: BASOPHILS 0.3 % (0-2); EOSINOPHILS 0 % (0-7); IMMATURE GRANULOCYTES 1.9 % (0-5); LYMPHOCYTES 6.6 % (15-50); MCH 29.2 pg (26.0-34.0); MCV 88.5 fL (80.0-100.0); MEAN PLATELET VOLUME 9.6 fL (7.4-10.4); MONOCYTES 6.4 % (2-11); NEUTROPHILS 84.8 % (40-80); PLATELET COUNT 433 10x3/uL (130-400); WBC 16.1 10x3/uL (4.8-10.8)
[2018-01-09 06:28] LABS: HEMOGLOBIN 7.6 g/dL (12-16)
[2018-01-09 06:40] LABS: APTT 40.7 SECONDS (22.8-39.4); INR 1.38 (0.85-1.17); PROTIME 16.5 SECONDS (11.6-15.0)
[2018-01-09 06:56] LABS: ALBUMIN 2.6 g/dL (3.4-5.0); ANION GAP 17.4 mmol/L (8-16); BILIRUBIN - TOTAL 0.38 mg/dL (0.2-1.3); CALCIUM 7.5 mg/dL (8.5-10.1); CARBON DIOXIDE 21.4 mmol/L (21.0-32.0); POTASSIUM - SERUM 4.8 mmol/L (3.5-5.1); PROTEIN - SERUM 5.3 g/dL (6.4-8.2)
[2018-01-09 07:05] LABS: CREATININE - SERUM 2.3 mg/dL (0.6-1.3)
[2018-01-09 09:03] LABS: MAGNESIUM - SERUM 1.9 mg/dL (1.8-2.4); PHOSPHOROUS 3.6 mg/dL (2.5-4.9)
[2018-01-10] VITALS (28 sets, daily range): BP systolic 99–171; BP diastolic 52–75
[2018-01-10 05:12] LABS: BASOPHILS 0.5 % (0-2); EOSINOPHILS 0.4 % (0-7); HEMATOCRIT 26.4 % (36.0-48.0); HEMOGLOBIN 8.7 g/dL (12-16); IMMATURE GRANULOCYTES 2.7 % (0-5); LYMPHOCYTES 5.7 % (15-50); MCH 29.6 pg (26.0-34.0); MCV 89.8 fL (80.0-100.0); MEAN PLATELET VOLUME 9.3 fL (7.4-10.4); MONOCYTES 5.9 % (2-11); NEUTROPHILS 84.8 % (40-80); RBC 2.94 10x6/uL (4.00-5.40); RDW 16.6 % (11.5-14.5); WBC 17.9 10x3/uL (4.8-10.8)
[2018-01-10 05:24] LABS: PLATELET COUNT 292 10x3/uL (130-400)
[2018-01-10 05:32] LABS: ALBUMIN 2.7 g/dL (3.4-5.0); ANION GAP 14.8 mmol/L (8-16); BILIRUBIN - TOTAL 0.36 mg/dL (0.2-1.3); CALCIUM 7.7 mg/dL (8.5-10.1); CARBON DIOXIDE 23.5 mmol/L (21.0-32.0); POTASSIUM - SERUM 4.3 mmol/L (3.5-5.1); PROTEIN - SERUM 5.5 g/dL (6.4-8.2)
[2018-01-10 05:36] LABS: CREATININE - SERUM 1.7 mg/dL (0.6-1.3)
[2018-01-10 08:06] LABS: PHOSPHOROUS 3.5 mg/dL (2.5-4.9)
[2018-01-11] VITALS (24 sets, daily range): BP systolic 109–163; BP diastolic 59–93
[2018-01-11 04:57] LABS: HEMATOCRIT 31.9 % (36.0-48.0); HEMOGLOBIN 9.8 g/dL (12-16); MCH 29.5 pg (26.0-34.0); MCHC 30.7 g/dL (31.0-37.0); MCV 96.1 fL (80.0-100.0); MEAN PLATELET VOLUME 9.5 fL (7.4-10.4); PLATELET COUNT 390 10x3/uL (130-400); RBC 3.32 10x6/uL (4.00-5.40); RDW 17.8 % (11.5-14.5); WBC 24.2 10x3/uL (4.8-10.8)
[2018-01-11 05:30] LABS: ANION GAP 10.5 mmol/L (8-16); CARBON DIOXIDE 27.9 mmol/L (21.0-32.0); MAGNESIUM - SERUM 1.7 mg/dL (1.8-2.4); POTASSIUM - SERUM 4.4 mmol/L (3.5-5.1)
[2018-01-11 05:32] LABS: CREATININE - SERUM 1.1 mg/dL (0.6-1.3)
[2018-01-11 05:40] LABS: EOSINOPHILS 1 % (0-7); LYMPHOCYTES 15 % (15-50); NEUTROPHILS 75 % (40-80)
[2018-01-11 05:41] LABS: PLATELET ESTIMATE NORMAL
[2018-01-12] VITALS (24 sets, daily range): BP systolic 98–148; BP diastolic 56–96
[2018-01-12 05:19] LABS: BASOPHILS 0.8 % (0-2); EOSINOPHILS 2.8 % (0-7); HEMATOCRIT 29.1 % (36.0-48.0); HEMOGLOBIN 9.1 g/dL (12-16); IMMATURE GRANULOCYTES 7.8 % (0-5); LYMPHOCYTES 4.3 % (15-50); MCH 29.6 pg (26.0-34.0); MCHC 31.3 g/dL (31.0-37.0); MCV 94.8 fL (80.0-100.0); MEAN PLATELET VOLUME 9.6 fL (7.4-10.4); MONOCYTES 6.1 % (2-11); NEUTROPHILS 78.2 % (40-80); PLATELET COUNT 389 10x3/uL (130-400); RBC 3.07 10x6/uL (4.00-5.40); RDW 17.1 % (11.5-14.5)
[2018-01-12 05:22] LABS: WBC 16.1 10x3/uL (4.8-10.8)
[2018-01-12 05:31] LABS: CALCIUM 8.1 mg/dL (8.5-10.1); CARBON DIOXIDE 29.9 mmol/L (21.0-32.0); CHLORIDE - SERUM 111 mmol/L (98-107); GLUCOSE 153 mg/dL (74-106); MAGNESIUM - SERUM 1.7 mg/dL (1.8-2.4); POTASSIUM - SERUM 4.2 mmol/L (3.5-5.1); SODIUM 145 mmol/L (136-145); eGFR NON AFRICAN AMERICAN 76 mL/min (90-120)
[2018-01-12 05:32] LABS: CALC OSMOLALITY 290 mosm/kg (275-300); CREATININE - SERUM 0.8 mg/dL (0.6-1.3); UREA NITROGEN 11 mg/dL (7-18)
[2018-01-13] VITALS (23 sets, daily range): BP systolic 104–160; BP diastolic 52–87
[2018-01-13 05:39] LABS: BASOPHILS 0.5 % (0-2); EOSINOPHILS 3.4 % (0-7); HEMATOCRIT 26.7 % (36.0-48.0); HEMOGLOBIN 8.4 g/dL (12-16); IMMATURE GRANULOCYTES 5.7 % (0-5); LYMPHOCYTES 7.4 % (15-50); MCH 29.4 pg (26.0-34.0); MCHC 31.5 g/dL (31.0-37.0); MCV 93.4 fL (80.0-100.0); MEAN PLATELET VOLUME 9.5 fL (7.4-10.4); MONOCYTES 8.7 % (2-11); NEUTROPHILS 74.3 % (40-80); PLATELET COUNT 393 10x3/uL (130-400); RBC 2.86 10x6/uL (4.00-5.40); RDW 16.7 % (11.5-14.5)
[2018-01-13 05:42] LABS: WBC 11.7 10x3/uL (4.8-10.8)
[2018-01-13 05:52] LABS: CALC OSMOLALITY 293 mosm/kg (275-300); CALCIUM 8.3 mg/dL (8.5-10.1); CARBON DIOXIDE 32.4 mmol/L (21.0-32.0); CHLORIDE - SERUM 108 mmol/L (98-107); CREATININE - SERUM 0.6 mg/dL (0.6-1.3); GLUCOSE 136 mg/dL (74-106); MAGNESIUM - SERUM 1.8 mg/dL (1.8-2.4); SODIUM 147 mmol/L (136-145); UREA NITROGEN 12 mg/dL (7-18); eGFR NON AFRICAN AMERICAN > 90 mL/min (90-120)
[2018-01-13 15:24] LABS: AFB SPECIMEN PROCESSING Concentration (())
[2018-01-14] VITALS (23 sets, daily range): BP systolic 105–145; BP diastolic 53–75
[2018-01-14 04:08] LABS: BASOPHILS 0.5 % (0-2); EOSINOPHILS 2.9 % (0-7); HEMATOCRIT 26.6 % (36.0-48.0); HEMOGLOBIN 8.3 g/dL (12-16); LYMPHOCYTES 8.1 % (15-50); MCH 29.1 pg (26.0-34.0); MCHC 31.2 g/dL (31.0-37.0); MCV 93.3 fL (80.0-100.0); MEAN PLATELET VOLUME 9.6 fL (7.4-10.4); MONOCYTES 8.1 % (2-11); NEUTROPHILS 76.4 % (40-80); PLATELET COUNT 423 10x3/uL (130-400); RBC 2.85 10x6/uL (4.00-5.40); RDW 16.3 % (11.5-14.5); WBC 14.7 10x3/uL (4.8-10.8)
[2018-01-14 04:27] LABS: CALC OSMOLALITY 291 mosm/kg (275-300); CALCIUM 8.6 mg/dL (8.5-10.1); CARBON DIOXIDE 33.9 mmol/L (21.0-32.0); CHLORIDE - SERUM 106 mmol/L (98-107); CREATININE - SERUM 0.6 mg/dL (0.6-1.3); GLUCOSE 165 mg/dL (74-106); MAGNESIUM - SERUM 1.7 mg/dL (1.8-2.4); SODIUM 144 mmol/L (136-145); UREA NITROGEN 15 mg/dL (7-18); eGFR NON AFRICAN AMERICAN > 90 mL/min (90-120)
[2018-01-14 13:19] LABS: FUNGUS STAIN Final report (())
[2018-01-15] VITALS (23 sets, daily range): BP systolic 86–132; BP diastolic 49–82
[2018-01-15 05:52] LABS: BASOPHILS 0.2 % (0-2); CALC OSMOLALITY 286 mosm/kg (275-300); CALCIUM 8.7 mg/dL (8.5-10.1); CHLORIDE - SERUM 104 mmol/L (98-107); CREATININE - SERUM 0.7 mg/dL (0.6-1.3); EOSINOPHILS 1.6 % (0-7); GLUCOSE 177 mg/dL (74-106); HEMATOCRIT 24.1 % (36.0-48.0); HEMOGLOBIN 7.5 g/dL (12-16); IMMATURE GRANULOCYTES 1.5 % (0-5); LYMPHOCYTES 5.6 % (15-50); MAGNESIUM - SERUM 1.8 mg/dL (1.8-2.4); MCH 29.1 pg (26.0-34.0); MCHC 31.1 g/dL (31.0-37.0); MCV 93.4 fL (80.0-100.0); MEAN PLATELET VOLUME 9.5 fL (7.4-10.4); MONOCYTES 4.6 % (2-11); NEUTROPHILS 86.5 % (40-80); PHOSPHOROUS 2.7 mg/dL (2.5-4.9); PLATELET COUNT 443 10x3/uL (130-400); POTASSIUM - SERUM 3.8 mmol/L (3.5-5.1); RBC 2.58 10x6/uL (4.00-5.40); RDW 16.5 % (11.5-14.5); SODIUM 141 mmol/L (136-145); WBC 22.9 10x3/uL (4.8-10.8); eGFR NON AFRICAN AMERICAN 89 mL/min (90-120)
[2018-01-15 05:56] LABS: UREA NITROGEN 19 mg/dL (7-18)
[2018-01-16] VITALS (24 sets, daily range): BP systolic 92–136; BP diastolic 45–87
[2018-01-16 05:24] LABS: CALC OSMOLALITY 284 mosm/kg (275-300); CALCIUM 8.6 mg/dL (8.5-10.1); CARBON DIOXIDE 28.6 mmol/L (21.0-32.0); CHLORIDE - SERUM 106 mmol/L (98-107); CREATININE - SERUM 0.6 mg/dL (0.6-1.3); GLUCOSE 147 mg/dL (74-106); MAGNESIUM - SERUM 1.7 mg/dL (1.8-2.4); PHOSPHOROUS 2.2 mg/dL (2.5-4.9); POTASSIUM - SERUM 3.8 mmol/L (3.5-5.1); SODIUM 141 mmol/L (136-145); UREA NITROGEN 16 mg/dL (7-18); eGFR NON AFRICAN AMERICAN > 90 mL/min (90-120)
[2018-01-16 08:04] LABS: BASOPHILS 0.4 % (0-2); EOSINOPHILS 3.8 % (0-7); IMMATURE GRANULOCYTES 1.4 % (0-5); LYMPHOCYTES 5.4 % (15-50); MCH 29.7 pg (26.0-34.0); MCHC 32.2 g/dL (31.0-37.0); MCV 92.2 fL (80.0-100.0); MEAN PLATELET VOLUME 10.1 fL (7.4-10.4); MONOCYTES 7.5 % (2-11); NEUTROPHILS 81.5 % (40-80); PLATELET COUNT 458 10x3/uL (130-400); RDW 16.6 % (11.5-14.5)
[2018-01-16 08:13] LABS: HEMATOCRIT 29.5 % (36.0-48.0); HEMOGLOBIN 9.5 g/dL (12-16); WBC 16.2 10x3/uL (4.8-10.8)
[2018-01-17] VITALS (24 sets, daily range): BP systolic 103–148; BP diastolic 58–86
[2018-01-17 04:32] LABS: CALC OSMOLALITY 281 mosm/kg (275-300); CALCIUM 8.5 mg/dL (8.5-10.1); CARBON DIOXIDE 29.7 mmol/L (21.0-32.0); CHLORIDE - SERUM 105 mmol/L (98-107); CREATININE - SERUM 0.6 mg/dL (0.6-1.3); GLUCOSE 153 mg/dL (74-106); MAGNESIUM - SERUM 1.8 mg/dL (1.8-2.4); PHOSPHOROUS 2.6 mg/dL (2.5-4.9); POTASSIUM - SERUM 3.9 mmol/L (3.5-5.1); SODIUM 139 mmol/L (136-145); UREA NITROGEN 16 mg/dL (7-18); eGFR NON AFRICAN AMERICAN > 90 mL/min (90-120)
[2018-01-18] VITALS (23 sets, daily range): BP systolic 97–151; BP diastolic 50–79
[2018-01-18 04:58] LABS: BASOPHILS 0.3 % (0-2); EOSINOPHILS 1.7 % (0-7); HEMATOCRIT 27.7 % (36.0-48.0); HEMOGLOBIN 8.8 g/dL (12-16); IMMATURE GRANULOCYTES 0.9 % (0-5); LYMPHOCYTES 8.3 % (15-50); MCH 29.4 pg (26.0-34.0); MCHC 31.8 g/dL (31.0-37.0); MCV 92.6 fL (80.0-100.0); MEAN PLATELET VOLUME 9.6 fL (7.4-10.4); MONOCYTES 10.6 % (2-11); NEUTROPHILS 78.2 % (40-80); PLATELET COUNT 483 10x3/uL (130-400); RBC 2.99 10x6/uL (4.00-5.40)
[2018-01-18 05:04] LABS: WBC 11.6 10x3/uL (4.8-10.8)
[2018-01-18 05:26] LABS: ALBUMIN 3.3 g/dL (3.4-5.0); ALKALINE PHOSPHATASE 255 U/L (46-116); ALT (SGPT) 16 U/L (10-68); BILIRUBIN - DIRECT 0.18 mg/dL (0.00-0.30); BILIRUBIN - INDIRECT 0.46 mg/dL (0.00-1.00); BILIRUBIN - TOTAL 0.64 mg/dL (0.2-1.3); CALC OSMOLALITY 283 mosm/kg (275-300); CALCIUM 8.6 mg/dL (8.5-10.1); CHLORIDE - SERUM 106 mmol/L (98-107); CREATININE - SERUM 0.5 mg/dL (0.6-1.3); GLUCOSE 136 mg/dL (74-106); MAGNESIUM - SERUM 1.7 mg/dL (1.8-2.4); PHOSPHOROUS 2.2 mg/dL (2.5-4.9); POTASSIUM - SERUM 3.5 mmol/L (3.5-5.1); PROTEIN - SERUM 6.5 g/dL (6.4-8.2); SODIUM 141 mmol/L (136-145); UREA NITROGEN 14 mg/dL (7-18); eGFR NON AFRICAN AMERICAN > 90 mL/min (90-120)
[2018-01-19] VITALS (24 sets, daily range): BP systolic 100–147; BP diastolic 51–76
[2018-01-19 04:54] LABS: CALC OSMOLALITY 284 mosm/kg (275-300); CALCIUM 8.9 mg/dL (8.5-10.1); CARBON DIOXIDE 28.4 mmol/L (21.0-32.0); CHLORIDE - SERUM 104 mmol/L (98-107); CREATININE - SERUM 0.6 mg/dL (0.6-1.3); GLUCOSE 146 mg/dL (74-106); MAGNESIUM - SERUM 1.6 mg/dL (1.8-2.4); PHOSPHOROUS 2.6 mg/dL (2.5-4.9); POTASSIUM - SERUM 3.2 mmol/L (3.5-5.1); SODIUM 141 mmol/L (136-145); UREA NITROGEN 16 mg/dL (7-18); eGFR NON AFRICAN AMERICAN > 90 mL/min (90-120)
[2018-01-19 13:15] LABS: FUNGUS CULTURE RESULT 1 Candida albicans (())
[2018-01-20] VITALS (25 sets, daily range): BP systolic 96–137; BP diastolic 42–74
[2018-01-20 04:01] LABS: BASOPHILS 0.4 % (0-2); EOSINOPHILS 2.1 % (0-7); HEMATOCRIT 27.4 % (36.0-48.0); HEMOGLOBIN 8.8 g/dL (12-16); IMMATURE GRANULOCYTES 0.5 % (0-5); LYMPHOCYTES 9.4 % (15-50); MCH 29.6 pg (26.0-34.0); MCHC 32.1 g/dL (31.0-37.0); MCV 92.3 fL (80.0-100.0); MEAN PLATELET VOLUME 9.5 fL (7.4-10.4); MONOCYTES 11.6 % (2-11); PLATELET COUNT 476 10x3/uL (130-400); RBC 2.97 10x6/uL (4.00-5.40); RDW 15.9 % (11.5-14.5); WBC 9.8 10x3/uL (4.8-10.8)
[2018-01-20 04:24] LABS: ALBUMIN 3.3 g/dL (3.4-5.0); ALKALINE PHOSPHATASE 191 U/L (46-116); ALT (SGPT) 15 U/L (10-68); BILIRUBIN - TOTAL 0.57 mg/dL (0.2-1.3); CALC OSMOLALITY 285 mosm/kg (275-300); CALCIUM 8.8 mg/dL (8.5-10.1); CHLORIDE - SERUM 104 mmol/L (98-107); GLUCOSE 151 mg/dL (74-106); MAGNESIUM - SERUM 1.7 mg/dL (1.8-2.4); PHOSPHOROUS 2.9 mg/dL (2.5-4.9); POTASSIUM - SERUM 3.2 mmol/L (3.5-5.1); PROTEIN - SERUM 6.3 g/dL (6.4-8.2); SODIUM 141 mmol/L (136-145); UREA NITROGEN 19 mg/dL (7-18); eGFR NON AFRICAN AMERICAN 76 mL/min (90-120)
[2018-01-20 04:25] LABS: CREATININE - SERUM 0.8 mg/dL (0.6-1.3)
[2018-01-20 15:38] LABS: ALBUMIN 3.5 g/dL (3.4-5.0); ALKALINE PHOSPHATASE 185 U/L (46-116); ALT (SGPT) 16 U/L (10-68); BILIRUBIN - TOTAL 0.61 mg/dL (0.2-1.3); CALC OSMOLALITY 288 mosm/kg (275-300); CALCIUM 8.9 mg/dL (8.5-10.1); CARBON DIOXIDE 30.9 mmol/L (21.0-32.0); CHLORIDE - SERUM 105 mmol/L (98-107); CREATININE - SERUM 0.7 mg/dL (0.6-1.3); GLUCOSE 163 mg/dL (74-106); POTASSIUM - SERUM 3.5 mmol/L (3.5-5.1); PROTEIN - SERUM 6.7 g/dL (6.4-8.2); SODIUM 142 mmol/L (136-145); UREA NITROGEN 19 mg/dL (7-18); eGFR NON AFRICAN AMERICAN 89 mL/min (90-120)
[2018-01-21] VITALS (24 sets, daily range): BP systolic 100–151; BP diastolic 51–79
[2018-01-21 03:49] LABS: BASOPHILS 0.5 % (0-2); EOSINOPHILS 2.7 % (0-7); HEMATOCRIT 26.3 % (36.0-48.0); HEMOGLOBIN 8.3 g/dL (12-16); IMMATURE GRANULOCYTES 0.6 % (0-5); LYMPHOCYTES 12.2 % (15-50); MCH 29.3 pg (26.0-34.0); MCHC 31.6 g/dL (31.0-37.0); MCV 92.9 fL (80.0-100.0); MEAN PLATELET VOLUME 9.4 fL (7.4-10.4); MONOCYTES 13.9 % (2-11); NEUTROPHILS 70.1 % (40-80); PLATELET COUNT 489 10x3/uL (130-400); RBC 2.83 10x6/uL (4.00-5.40); RDW 15.9 % (11.5-14.5); WBC 8.2 10x3/uL (4.8-10.8)
[2018-01-21 04:03] LABS: ALBUMIN 3.5 g/dL (3.4-5.0); ALKALINE PHOSPHATASE 176 U/L (46-116); ALT (SGPT) 17 U/L (10-68); BILIRUBIN - TOTAL 0.53 mg/dL (0.2-1.3); CALC OSMOLALITY 283 mosm/kg (275-300); CHLORIDE - SERUM 104 mmol/L (98-107); CREATININE - SERUM 0.7 mg/dL (0.6-1.3); GLUCOSE 153 mg/dL (74-106); PROTEIN - SERUM 6.8 g/dL (6.4-8.2); SODIUM 140 mmol/L (136-145); UREA NITROGEN 19 mg/dL (7-18); eGFR NON AFRICAN AMERICAN 89 mL/min (90-120)
[2018-01-21 04:04] LABS: POTASSIUM - SERUM 4.1 mmol/L (3.5-5.1)
[2018-01-21 07:40] LABS: MAGNESIUM - SERUM 1.7 mg/dL (1.8-2.4); PHOSPHOROUS 2.6 mg/dL (2.5-4.9)
[2018-01-22] VITALS (23 sets, daily range): BP systolic 95–150; BP diastolic 48–75
[2018-01-22 04:31] LABS: BASOPHILS 0.3 % (0-2); EOSINOPHILS 2.8 % (0-7); HEMATOCRIT 28.3 % (36.0-48.0); IMMATURE GRANULOCYTES 0.6 % (0-5); LYMPHOCYTES 14.3 % (15-50); MCH 29.2 pg (26.0-34.0); MCHC 31.8 g/dL (31.0-37.0); MCV 91.9 fL (80.0-100.0); MEAN PLATELET VOLUME 9.4 fL (7.4-10.4); PLATELET COUNT 431 10x3/uL (130-400); RBC 3.08 10x6/uL (4.00-5.40); RDW 15.7 % (11.5-14.5); WBC 6.9 10x3/uL (4.8-10.8)
[2018-01-22 06:02] LABS: ALBUMIN 3.8 g/dL (3.4-5.0); ALKALINE PHOSPHATASE 183 U/L (46-116); ALT (SGPT) 15 U/L (10-68); CALC OSMOLALITY 281 mosm/kg (275-300); CALCIUM 8.4 mg/dL (8.5-10.1); CARBON DIOXIDE 30.5 mmol/L (21.0-32.0); CHLORIDE - SERUM 103 mmol/L (98-107); CREATININE - SERUM 0.6 mg/dL (0.6-1.3); GLUCOSE 164 mg/dL (74-106); PHOSPHOROUS 2.5 mg/dL (2.5-4.9); POTASSIUM - SERUM 3.9 mmol/L (3.5-5.1); PROTEIN - SERUM 6.3 g/dL (6.4-8.2); SODIUM 138 mmol/L (136-145); UREA NITROGEN 18 mg/dL (7-18); eGFR NON AFRICAN AMERICAN > 90 mL/min (90-120)
[2018-01-23] VITALS (26 sets, daily range): BP systolic 97–159; BP diastolic 45–73
[2018-01-23 04:58] LABS: BASOPHILS 0.6 % (0-2); EOSINOPHILS 5.4 % (0-7); HEMATOCRIT 26.1 % (36.0-48.0); HEMOGLOBIN 8.2 g/dL (12-16); IMMATURE GRANULOCYTES 0.6 % (0-5); LYMPHOCYTES 16.5 % (15-50); MCH 29.2 pg (26.0-34.0); MCHC 31.4 g/dL (31.0-37.0); MCV 92.9 fL (80.0-100.0); MEAN PLATELET VOLUME 9.6 fL (7.4-10.4); MONOCYTES 12.9 % (2-11); PLATELET COUNT 484 10x3/uL (130-400); RBC 2.81 10x6/uL (4.00-5.40); RDW 15.8 % (11.5-14.5); WBC 7.2 10x3/uL (4.8-10.8)
[2018-01-23 05:45] LABS: ALBUMIN 3.8 g/dL (3.4-5.0); ALKALINE PHOSPHATASE 165 U/L (46-116); ALT (SGPT) 17 U/L (10-68); BILIRUBIN - TOTAL 0.64 mg/dL (0.2-1.3); CALC OSMOLALITY 282 mosm/kg (275-300); CALCIUM 9.1 mg/dL (8.5-10.1); CARBON DIOXIDE 28.6 mmol/L (21.0-32.0); CHLORIDE - SERUM 100 mmol/L (98-107); CREATININE - SERUM 0.6 mg/dL (0.6-1.3); GLUCOSE 130 mg/dL (74-106); MAGNESIUM - SERUM 1.7 mg/dL (1.8-2.4); PHOSPHOROUS 2.5 mg/dL (2.5-4.9); POTASSIUM - SERUM 3.5 mmol/L (3.5-5.1); PROTEIN - SERUM 7.1 g/dL (6.4-8.2); SODIUM 139 mmol/L (136-145); UREA NITROGEN 22 mg/dL (7-18); eGFR NON AFRICAN AMERICAN > 90 mL/min (90-120)
[2018-01-24] VITALS (24 sets, daily range): BP systolic 97–143; BP diastolic 45–73
[2018-01-24 04:28] LABS: BASOPHILS 0.4 % (0-2); EOSINOPHILS 3.4 % (0-7); HEMATOCRIT 25.9 % (36.0-48.0); HEMOGLOBIN 8.2 g/dL (12-16); IMMATURE GRANULOCYTES 0.7 % (0-5); LYMPHOCYTES 15.6 % (15-50); MCH 29.1 pg (26.0-34.0); MCHC 31.7 g/dL (31.0-37.0); MCV 91.8 fL (80.0-100.0); MEAN PLATELET VOLUME 9.7 fL (7.4-10.4); MONOCYTES 9.8 % (2-11); NEUTROPHILS 70.1 % (40-80); PLATELET COUNT 453 10x3/uL (130-400); RBC 2.82 10x6/uL (4.00-5.40); RDW 15.6 % (11.5-14.5)
[2018-01-24 04:29] LABS: WBC 10.7 10x3/uL (4.8-10.8)
[2018-01-24 07:27] LABS: ALBUMIN 4.1 g/dL (3.4-5.0); ALKALINE PHOSPHATASE 181 U/L (46-116); ALT (SGPT) 14 U/L (10-68); CALC OSMOLALITY 281 mosm/kg (275-300); CALCIUM 8.8 mg/dL (8.5-10.1); CARBON DIOXIDE 31.2 mmol/L (21.0-32.0); CHLORIDE - SERUM 101 mmol/L (98-107); CREATININE - SERUM 0.6 mg/dL (0.6-1.3); GLUCOSE 134 mg/dL (74-106); PHOSPHOROUS 2.9 mg/dL (2.5-4.9); POTASSIUM - SERUM 4.1 mmol/L (3.5-5.1); PROTEIN - SERUM 6.6 g/dL (6.4-8.2); SODIUM 139 mmol/L (136-145); UREA NITROGEN 19 mg/dL (7-18); eGFR NON AFRICAN AMERICAN > 90 mL/min (90-120)
[2018-01-24 12:00] LABS: APPEARANCE HAZY (CLEAR); BILIRUBIN NEGATIVE (NEGATIVE); COLOR YELLOW (YELLOW); GLUCOSE NEGATIVE (NEGATIVE); KETONE NEGATIVE (NEGATIVE); NITRITE NEGATIVE (NEGATIVE); PROTEIN TRACE mg/dL (NEGATIVE); UROBILINOGEN NORMAL (NORMAL); WHITE CELLS - URINE 0-5 /hpf (0-5)
[2018-01-24 12:01] LABS: BACTERIA FEW /hpf (NONE SEEN); RED CELLS - URINE 0-5 /hpf (0-5)
[2018-01-24 12:02] LABS: YEAST >1+ WITH HYPHAE /hpf (NONE SEEN)
[2018-01-25] VITALS (24 sets, daily range): BP systolic 102–169; BP diastolic 48–88
[2018-01-25 03:45] LABS: BASOPHILS 0.3 % (0-2); EOSINOPHILS 3.1 % (0-7); HEMATOCRIT 25.2 % (36.0-48.0); IMMATURE GRANULOCYTES 0.5 % (0-5); LYMPHOCYTES 12.7 % (15-50); MCH 29.1 pg (26.0-34.0); MCHC 31.7 g/dL (31.0-37.0); MCV 91.6 fL (80.0-100.0); MEAN PLATELET VOLUME 9.3 fL (7.4-10.4); MONOCYTES 10.6 % (2-11); NEUTROPHILS 72.8 % (40-80); PLATELET COUNT 397 10x3/uL (130-400); RBC 2.75 10x6/uL (4.00-5.40); RDW 15.7 % (11.5-14.5)
[2018-01-25 03:57] LABS: CALC OSMOLALITY 284 mosm/kg (275-300); CALCIUM 9.5 mg/dL (8.5-10.1); CARBON DIOXIDE 30.3 mmol/L (21.0-32.0); CHLORIDE - SERUM 99 mmol/L (98-107); CREATININE - SERUM 0.7 mg/dL (0.6-1.3); GLUCOSE 162 mg/dL (74-106); MAGNESIUM - SERUM 1.7 mg/dL (1.8-2.4); PHOSPHOROUS 2.6 mg/dL (2.5-4.9); POTASSIUM - SERUM 3.9 mmol/L (3.5-5.1); SODIUM 139 mmol/L (136-145); UREA NITROGEN 22 mg/dL (7-18); eGFR NON AFRICAN AMERICAN 89 mL/min (90-120)
[2018-01-26] VITALS (24 sets, daily range): BP systolic 109–138; BP diastolic 55–89
[2018-01-26 05:09] LABS: BASOPHILS 0.5 % (0-2); EOSINOPHILS 2.1 % (0-7); HEMATOCRIT 24.5 % (36.0-48.0); HEMOGLOBIN 7.8 g/dL (12-16); IMMATURE GRANULOCYTES 1.1 % (0-5); LYMPHOCYTES 18.3 % (15-50); MCH 28.8 pg (26.0-34.0); MCHC 31.8 g/dL (31.0-37.0); MCV 90.4 fL (80.0-100.0); MEAN PLATELET VOLUME 9.8 fL (7.4-10.4); MONOCYTES 10.6 % (2-11); NEUTROPHILS 67.4 % (40-80); PLATELET COUNT 371 10x3/uL (130-400); RBC 2.71 10x6/uL (4.00-5.40); RDW 15.9 % (11.5-14.5); WBC 10.6 10x3/uL (4.8-10.8)
[2018-01-26 05:33] LABS: CALC OSMOLALITY 278 mosm/kg (275-300); CALCIUM 9.5 mg/dL (8.5-10.1); CARBON DIOXIDE 29.7 mmol/L (21.0-32.0); CHLORIDE - SERUM 99 mmol/L (98-107); CREATININE - SERUM 0.7 mg/dL (0.6-1.3); GLUCOSE 139 mg/dL (74-106); MAGNESIUM - SERUM 1.9 mg/dL (1.8-2.4); POTASSIUM - SERUM 4.1 mmol/L (3.5-5.1); SODIUM 137 mmol/L (136-145); UREA NITROGEN 22 mg/dL (7-18); eGFR NON AFRICAN AMERICAN 89 mL/min (90-120)
[2018-01-27] VITALS (24 sets, daily range): BP systolic 109–146; BP diastolic 56–74
[2018-01-27 04:43] LABS: BASOPHILS 0.3 % (0-2); EOSINOPHILS 1.8 % (0-7); HEMATOCRIT 26.6 % (36.0-48.0); HEMOGLOBIN 8.6 g/dL (12-16); IMMATURE GRANULOCYTES 1.1 % (0-5); LYMPHOCYTES 13.6 % (15-50); MCH 29.2 pg (26.0-34.0); MCHC 32.3 g/dL (31.0-37.0); MCV 90.2 fL (80.0-100.0); MEAN PLATELET VOLUME 9.4 fL (7.4-10.4); MONOCYTES 13.3 % (2-11); NEUTROPHILS 69.9 % (40-80); RBC 2.95 10x6/uL (4.00-5.40); RDW 16.2 % (11.5-14.5); WBC 11.9 10x3/uL (4.8-10.8)
[2018-01-27 04:45] LABS: PLATELET COUNT 286 10x3/uL (130-400)
[2018-01-27 04:46] LABS: CALC OSMOLALITY 281 mosm/kg (275-300); CALCIUM 9.5 mg/dL (8.5-10.1); CARBON DIOXIDE 29.6 mmol/L (21.0-32.0); CHLORIDE - SERUM 101 mmol/L (98-107); CREATININE - SERUM 0.6 mg/dL (0.6-1.3); GLUCOSE 141 mg/dL (74-106); POTASSIUM - SERUM 4.3 mmol/L (3.5-5.1); SODIUM 138 mmol/L (136-145); UREA NITROGEN 23 mg/dL (7-18); eGFR NON AFRICAN AMERICAN > 90 mL/min (90-120)
[2018-01-27 05:49] LABS: MAGNESIUM - SERUM 1.8 mg/dL (1.8-2.4); PHOSPHOROUS 3.2 mg/dL (2.5-4.9)
[2018-01-28] VITALS (24 sets, daily range): BP systolic 99–143; BP diastolic 52–75
[2018-01-28 06:18] LABS: BASOPHILS 0.5 % (0-2); EOSINOPHILS 3.2 % (0-7); HEMATOCRIT 26.3 % (36.0-48.0); HEMOGLOBIN 8.4 g/dL (12-16); IMMATURE GRANULOCYTES 0.9 % (0-5); LYMPHOCYTES 14.3 % (15-50); MCH 28.9 pg (26.0-34.0); MCHC 31.9 g/dL (31.0-37.0); MCV 90.4 fL (80.0-100.0); MEAN PLATELET VOLUME 9.6 fL (7.4-10.4); MONOCYTES 9.2 % (2-11); NEUTROPHILS 71.9 % (40-80); PLATELET COUNT 239 10x3/uL (130-400); RBC 2.91 10x6/uL (4.00-5.40); RDW 16.1 % (11.5-14.5)
[2018-01-28 06:20] LABS: CALC OSMOLALITY 281 mosm/kg (275-300); CARBON DIOXIDE 29.5 mmol/L (21.0-32.0); CHLORIDE - SERUM 99 mmol/L (98-107); CREATININE - SERUM 0.7 mg/dL (0.6-1.3); GLUCOSE 168 mg/dL (74-106); POTASSIUM - SERUM 4.1 mmol/L (3.5-5.1); SODIUM 136 mmol/L (136-145); UREA NITROGEN 28 mg/dL (7-18); eGFR NON AFRICAN AMERICAN 89 mL/min (90-120)
[2018-01-28 09:55] LABS: PHOSPHOROUS 3.2 mg/dL (2.5-4.9)
[2018-01-28 11:19] LABS: FUNGUS STAIN Final report (())
[2018-01-28 16:15] LABS: AFB SPECIMEN PROCESSING Concentration (())
[2018-01-29] VITALS (26 sets, daily range): BP systolic 113–154; BP diastolic 58–91
[2018-01-29 05:27] LABS: BASOPHILS 0.3 % (0-2); EOSINOPHILS 1.6 % (0-7); HEMATOCRIT 26.4 % (36.0-48.0); HEMOGLOBIN 8.6 g/dL (12-16); IMMATURE GRANULOCYTES 0.8 % (0-5); LYMPHOCYTES 18.1 % (15-50); MCH 29.1 pg (26.0-34.0); MCHC 32.6 g/dL (31.0-37.0); MCV 89.2 fL (80.0-100.0); MEAN PLATELET VOLUME 9.9 fL (7.4-10.4); MONOCYTES 8.8 % (2-11); NEUTROPHILS 70.4 % (40-80); PLATELET COUNT 262 10x3/uL (130-400); RBC 2.96 10x6/uL (4.00-5.40); WBC 11.2 10x3/uL (4.8-10.8)
[2018-01-29 05:39] LABS: CALC OSMOLALITY 288 mosm/kg (275-300); CALCIUM 10.1 mg/dL (8.5-10.1); CARBON DIOXIDE 27.9 mmol/L (21.0-32.0); CHLORIDE - SERUM 99 mmol/L (98-107); CREATININE - SERUM 0.8 mg/dL (0.6-1.3); GLUCOSE 175 mg/dL (74-106); MAGNESIUM - SERUM 1.7 mg/dL (1.8-2.4); POTASSIUM - SERUM 3.9 mmol/L (3.5-5.1); SODIUM 140 mmol/L (136-145); UREA NITROGEN 29 mg/dL (7-18); eGFR NON AFRICAN AMERICAN 76 mL/min (90-120)
[2018-01-30] VITALS (26 sets, daily range): BP systolic 116–163; BP diastolic 53–82
[2018-01-30 04:58] LABS: BASOPHILS 0.3 % (0-2); EOSINOPHILS 1.6 % (0-7); HEMATOCRIT 27.1 % (36.0-48.0); HEMOGLOBIN 8.8 g/dL (12-16); IMMATURE GRANULOCYTES 1.2 % (0-5); LYMPHOCYTES 14.1 % (15-50); MCH 28.9 pg (26.0-34.0); MCHC 32.5 g/dL (31.0-37.0); MCV 89.1 fL (80.0-100.0); MEAN PLATELET VOLUME 9.7 fL (7.4-10.4); MONOCYTES 9.4 % (2-11); NEUTROPHILS 73.4 % (40-80); PLATELET COUNT 265 10x3/uL (130-400); RBC 3.04 10x6/uL (4.00-5.40); RDW 15.5 % (11.5-14.5)
[2018-01-30 05:32] LABS: ALBUMIN 4.6 g/dL (3.4-5.0); ALKALINE PHOSPHATASE 255 U/L (46-116); ALT (SGPT) 93 U/L (10-68); BILIRUBIN - TOTAL 0.84 mg/dL (0.2-1.3); CALC OSMOLALITY 288 mosm/kg (275-300); CALCIUM 9.9 mg/dL (8.5-10.1); CARBON DIOXIDE 32.1 mmol/L (21.0-32.0); CHLORIDE - SERUM 97 mmol/L (98-107); CREATININE - SERUM 0.7 mg/dL (0.6-1.3); GLUCOSE 192 mg/dL (74-106); PHOSPHOROUS 3.4 mg/dL (2.5-4.9); POTASSIUM - SERUM 3.7 mmol/L (3.5-5.1); PROTEIN - SERUM 7.8 g/dL (6.4-8.2); SODIUM 139 mmol/L (136-145); UREA NITROGEN 28 mg/dL (7-18); eGFR NON AFRICAN AMERICAN 89 mL/min (90-120)
[2018-01-31] VITALS (24 sets, daily range): BP systolic 99–163; BP diastolic 52–92
[2018-01-31 04:09] LABS: CALC OSMOLALITY 285 mosm/kg (275-300); CARBON DIOXIDE 32.3 mmol/L (21.0-32.0); CHLORIDE - SERUM 96 mmol/L (98-107); CREATININE - SERUM 0.8 mg/dL (0.6-1.3); GLUCOSE 171 mg/dL (74-106); MAGNESIUM - SERUM 1.8 mg/dL (1.8-2.4); PHOSPHOROUS 2.8 mg/dL (2.5-4.9); POTASSIUM - SERUM 3.7 mmol/L (3.5-5.1); SODIUM 138 mmol/L (136-145); UREA NITROGEN 30 mg/dL (7-18); eGFR NON AFRICAN AMERICAN 76 mL/min (90-120)
[2018-02-01] VITALS (24 sets, daily range): BP systolic 73–122; BP diastolic 45–93
[2018-02-01 05:35] LABS: CALCIUM 10.1 mg/dL (8.5-10.1); CARBON DIOXIDE 30.9 mmol/L (21.0-32.0); CHLORIDE - SERUM 94 mmol/L (98-107); CREATININE - SERUM 0.8 mg/dL (0.6-1.3); GLUCOSE 134 mg/dL (74-106); MAGNESIUM - SERUM 1.9 mg/dL (1.8-2.4); SODIUM 137 mmol/L (136-145); eGFR NON AFRICAN AMERICAN 76 mL/min (90-120)
[2018-02-01 05:36] LABS: CALC OSMOLALITY 288 mosm/kg (275-300); PHOSPHOROUS 3.9 mg/dL (2.5-4.9); POTASSIUM - SERUM 3.1 mmol/L (3.5-5.1); UREA NITROGEN 48 mg/dL (7-18)
[2018-02-01 05:43] LABS: BASOPHILS 0.1 % (0-2); EOSINOPHILS 0.3 % (0-7); HEMATOCRIT 25.2 % (36.0-48.0); HEMOGLOBIN 8.3 g/dL (12-16); IMMATURE GRANULOCYTES 0.7 % (0-5); LYMPHOCYTES 11.4 % (15-50); MCH 29.3 pg (26.0-34.0); MCHC 32.9 g/dL (31.0-37.0); MEAN PLATELET VOLUME 10.2 fL (7.4-10.4); MONOCYTES 6.7 % (2-11); NEUTROPHILS 80.8 % (40-80); PLATELET COUNT 190 10x3/uL (130-400); RBC 2.83 10x6/uL (4.00-5.40); RDW 15.8 % (11.5-14.5); WBC 20.1 10x3/uL (4.8-10.8)
[2018-02-02] VITALS (23 sets, daily range): BP systolic 98–128; BP diastolic 51–97
[2018-02-02 04:55] LABS: BASOPHILS 0.2 % (0-2); EOSINOPHILS 0.5 % (0-7); HEMATOCRIT 24.3 % (36.0-48.0); IMMATURE GRANULOCYTES 0.5 % (0-5); MCHC 32.9 g/dL (31.0-37.0); MEAN PLATELET VOLUME 10.1 fL (7.4-10.4); MONOCYTES 9.4 % (2-11); NEUTROPHILS 71.4 % (40-80); PLATELET COUNT 205 10x3/uL (130-400); RBC 2.76 10x6/uL (4.00-5.40); RDW 16.2 % (11.5-14.5)
[2018-02-02 05:16] LABS: WBC 14.6 10x3/uL (4.8-10.8)
[2018-02-02 05:18] LABS: CALC OSMOLALITY 294 mosm/kg (275-300); CALCIUM 9.7 mg/dL (8.5-10.1); CARBON DIOXIDE 29.1 mmol/L (21.0-32.0); CHLORIDE - SERUM 100 mmol/L (98-107); CREATININE - SERUM 0.8 mg/dL (0.6-1.3); GLUCOSE 180 mg/dL (74-106); MAGNESIUM - SERUM 2.1 mg/dL (1.8-2.4); SODIUM 140 mmol/L (136-145); UREA NITROGEN 42 mg/dL (7-18); VANCOMYCIN - TROUGH 18.5 ug/mL (10.0-20.0); eGFR NON AFRICAN AMERICAN 76 mL/min (90-120)
[2018-02-02 05:27] LABS: PHOSPHOROUS 2.6 mg/dL (2.5-4.9); POTASSIUM - SERUM 3.1 mmol/L (3.5-5.1)
[2018-02-03] VITALS (25 sets, daily range): BP systolic 95–130; BP diastolic 41–93
[2018-02-03 03:32] LABS: BASOPHILS 0.2 % (0-2); HEMATOCRIT 24.5 % (36.0-48.0); HEMOGLOBIN 7.9 g/dL (12-16); IMMATURE GRANULOCYTES 0.5 % (0-5); LYMPHOCYTES 16.4 % (15-50); MCH 28.5 pg (26.0-34.0); MCHC 32.2 g/dL (31.0-37.0); MCV 88.4 fL (80.0-100.0); MEAN PLATELET VOLUME 11.1 fL (7.4-10.4); MONOCYTES 8.4 % (2-11); NEUTROPHILS 73.5 % (40-80); PLATELET COUNT 187 10x3/uL (130-400); RBC 2.77 10x6/uL (4.00-5.40); RDW 15.9 % (11.5-14.5)
[2018-02-03 03:35] LABS: WBC 10.7 10x3/uL (4.8-10.8)
[2018-02-03 03:45] LABS: CALC OSMOLALITY 287 mosm/kg (275-300); CALCIUM 9.6 mg/dL (8.5-10.1); CARBON DIOXIDE 29.9 mmol/L (21.0-32.0); CHLORIDE - SERUM 102 mmol/L (98-107); CREATININE - SERUM 0.7 mg/dL (0.6-1.3); GLUCOSE 182 mg/dL (74-106); MAGNESIUM - SERUM 1.8 mg/dL (1.8-2.4); PHOSPHOROUS 2.7 mg/dL (2.5-4.9); POTASSIUM - SERUM 4.3 mmol/L (3.5-5.1); SODIUM 139 mmol/L (136-145); eGFR NON AFRICAN AMERICAN 89 mL/min (90-120)
[2018-02-03 03:51] LABS: UREA NITROGEN 27 mg/dL (7-18)
[2018-02-04] VITALS (24 sets, daily range): BP systolic 90–125; BP diastolic 33–72
[2018-02-04 03:53] LABS: BASOPHILS 0.1 % (0-2); EOSINOPHILS 1.7 % (0-7); HEMATOCRIT 26.4 % (36.0-48.0); HEMOGLOBIN 8.7 g/dL (12-16); IMMATURE GRANULOCYTES 0.6 % (0-5); LYMPHOCYTES 18.5 % (15-50); MCH 29.1 pg (26.0-34.0); MCV 88.3 fL (80.0-100.0); MEAN PLATELET VOLUME 10.1 fL (7.4-10.4); NEUTROPHILS 69.1 % (40-80); PLATELET COUNT 221 10x3/uL (130-400); RBC 2.99 10x6/uL (4.00-5.40); RDW 16.2 % (11.5-14.5)
[2018-02-04 03:59] LABS: WBC 14.6 10x3/uL (4.8-10.8)
[2018-02-04 04:08] LABS: CALC OSMOLALITY 285 mosm/kg (275-300); CALCIUM 10.1 mg/dL (8.5-10.1); CARBON DIOXIDE 30.6 mmol/L (21.0-32.0); CHLORIDE - SERUM 101 mmol/L (98-107); CREATININE - SERUM 0.6 mg/dL (0.6-1.3); SODIUM 141 mmol/L (136-145); UREA NITROGEN 25 mg/dL (7-18); eGFR NON AFRICAN AMERICAN > 90 mL/min (90-120)
[2018-02-04 04:10] LABS: GLUCOSE 108 mg/dL (74-106); PHOSPHOROUS 3.4 mg/dL (2.5-4.9)
[2018-02-05] VITALS (25 sets, daily range): BP systolic 87–112; BP diastolic 47–76
[2018-02-05 04:02] LABS: BASOPHILS 0.3 % (0-2); HEMATOCRIT 27.8 % (36.0-48.0); HEMOGLOBIN 8.9 g/dL (12-16); IMMATURE GRANULOCYTES 0.9 % (0-5); LYMPHOCYTES 19.1 % (15-50); MCH 28.7 pg (26.0-34.0); MCV 89.7 fL (80.0-100.0); MEAN PLATELET VOLUME 9.9 fL (7.4-10.4); MONOCYTES 9.4 % (2-11); NEUTROPHILS 68.3 % (40-80); PLATELET COUNT 244 10x3/uL (130-400); RDW 16.2 % (11.5-14.5); WBC 15.2 10x3/uL (4.8-10.8)
[2018-02-05 04:21] LABS: CALC OSMOLALITY 282 mosm/kg (275-300); CALCIUM 9.8 mg/dL (8.5-10.1); CHLORIDE - SERUM 99 mmol/L (98-107); CREATININE - SERUM 0.7 mg/dL (0.6-1.3); GLUCOSE 148 mg/dL (74-106); MAGNESIUM - SERUM 1.9 mg/dL (1.8-2.4); PHOSPHOROUS 3.5 mg/dL (2.5-4.9); POTASSIUM - SERUM 4.1 mmol/L (3.5-5.1); SODIUM 137 mmol/L (136-145); UREA NITROGEN 29 mg/dL (7-18); eGFR NON AFRICAN AMERICAN 89 mL/min (90-120)
[2018-02-06] VITALS (25 sets, daily range): BP systolic 90–135; BP diastolic 49–74
[2018-02-06 04:32] LABS: CALC OSMOLALITY 283 mosm/kg (275-300); CALCIUM 10.1 mg/dL (8.5-10.1); CARBON DIOXIDE 31.3 mmol/L (21.0-32.0); CHLORIDE - SERUM 99 mmol/L (98-107); CREATININE - SERUM 0.7 mg/dL (0.6-1.3); GLUCOSE 160 mg/dL (74-106); MAGNESIUM - SERUM 2.1 mg/dL (1.8-2.4); POTASSIUM - SERUM 3.9 mmol/L (3.5-5.1); SODIUM 137 mmol/L (136-145); UREA NITROGEN 32 mg/dL (7-18); eGFR NON AFRICAN AMERICAN 89 mL/min (90-120)
[2018-02-06 10:48] LABS: BASOPHILS 0.1 % (0-2); EOSINOPHILS 1.2 % (0-7); HEMATOCRIT 27.4 % (36.0-48.0); HEMOGLOBIN 8.8 g/dL (12-16); IMMATURE GRANULOCYTES 0.5 % (0-5); LYMPHOCYTES 18.3 % (15-50); MCH 29.5 pg (26.0-34.0); MCHC 32.1 g/dL (31.0-37.0); MEAN PLATELET VOLUME 9.8 fL (7.4-10.4); MONOCYTES 10.4 % (2-11); NEUTROPHILS 69.5 % (40-80); RBC 2.98 10x6/uL (4.00-5.40); RDW 16.4 % (11.5-14.5); WBC 16.4 10x3/uL (4.8-10.8)
[2018-02-06 10:51] LABS: MCV 91.9 fL (80.0-100.0); PLATELET COUNT 363 10x3/uL (130-400)
[2018-02-07] VITALS (22 sets, daily range): BP systolic 95–136; BP diastolic 51–93
[2018-02-07 03:51] LABS: BASOPHILS 0.1 % (0-2); EOSINOPHILS 1.4 % (0-7); HEMATOCRIT 26.5 % (36.0-48.0); HEMOGLOBIN 8.5 g/dL (12-16); IMMATURE GRANULOCYTES 0.8 % (0-5); LYMPHOCYTES 21.9 % (15-50); MCHC 32.1 g/dL (31.0-37.0); MCV 90.4 fL (80.0-100.0); MEAN PLATELET VOLUME 10.4 fL (7.4-10.4); MONOCYTES 10.7 % (2-11); NEUTROPHILS 65.1 % (40-80); PLATELET COUNT 283 10x3/uL (130-400); RBC 2.93 10x6/uL (4.00-5.40); RDW 16.3 % (11.5-14.5); WBC 14.7 10x3/uL (4.8-10.8)
[2018-02-07 04:02] LABS: CALC OSMOLALITY 287 mosm/kg (275-300); CALCIUM 9.9 mg/dL (8.5-10.1); CARBON DIOXIDE 33.3 mmol/L (21.0-32.0); CHLORIDE - SERUM 98 mmol/L (98-107); CREATININE - SERUM 0.8 mg/dL (0.6-1.3); GLUCOSE 148 mg/dL (74-106); MAGNESIUM - SERUM 2.1 mg/dL (1.8-2.4); PHOSPHOROUS 3.2 mg/dL (2.5-4.9); POTASSIUM - SERUM 3.7 mmol/L (3.5-5.1); SODIUM 139 mmol/L (136-145); UREA NITROGEN 32 mg/dL (7-18); eGFR NON AFRICAN AMERICAN 76 mL/min (90-120)
[2018-02-08] VITALS (24 sets, daily range): BP systolic 93–120; BP diastolic 37–62
[2018-02-08 04:41] LABS: BASOPHILS 0.2 % (0-2); EOSINOPHILS 2.4 % (0-7); HEMATOCRIT 26.7 % (36.0-48.0); HEMOGLOBIN 8.6 g/dL (12-16); IMMATURE GRANULOCYTES 0.8 % (0-5); LYMPHOCYTES 21.9 % (15-50); MCH 29.8 pg (26.0-34.0); MCHC 32.2 g/dL (31.0-37.0); MEAN PLATELET VOLUME 9.8 fL (7.4-10.4); MONOCYTES 12.2 % (2-11); NEUTROPHILS 62.5 % (40-80); RBC 2.89 10x6/uL (4.00-5.40); RDW 16.1 % (11.5-14.5); WBC 11.8 10x3/uL (4.8-10.8)
[2018-02-08 04:44] LABS: CALC OSMOLALITY 286 mosm/kg (275-300); CALCIUM 10.1 mg/dL (8.5-10.1); CARBON DIOXIDE 33.5 mmol/L (21.0-32.0); CHLORIDE - SERUM 98 mmol/L (98-107); CREATININE - SERUM 0.7 mg/dL (0.6-1.3); GLUCOSE 169 mg/dL (74-106); MAGNESIUM - SERUM 2.2 mg/dL (1.8-2.4); PHOSPHOROUS 3.3 mg/dL (2.5-4.9); POTASSIUM - SERUM 3.6 mmol/L (3.5-5.1); SODIUM 138 mmol/L (136-145); UREA NITROGEN 31 mg/dL (7-18); eGFR NON AFRICAN AMERICAN 89 mL/min (90-120)
[2018-02-08 04:45] LABS: MCV 92.4 fL (80.0-100.0); PLATELET COUNT 360 10x3/uL (130-400)
[2018-02-09] VITALS (24 sets, daily range): BP systolic 95–119; BP diastolic 51–64
[2018-02-09 04:25] LABS: BASOPHILS 0.3 % (0-2); EOSINOPHILS 2.9 % (0-7); HEMATOCRIT 26.6 % (36.0-48.0); HEMOGLOBIN 8.7 g/dL (12-16); IMMATURE GRANULOCYTES 0.8 % (0-5); LYMPHOCYTES 27.6 % (15-50); MCH 29.2 pg (26.0-34.0); MCHC 32.7 g/dL (31.0-37.0); MCV 89.3 fL (80.0-100.0); MEAN PLATELET VOLUME 9.8 fL (7.4-10.4); MONOCYTES 11.7 % (2-11); NEUTROPHILS 56.7 % (40-80); PLATELET COUNT 356 10x3/uL (130-400); RBC 2.98 10x6/uL (4.00-5.40); RDW 15.9 % (11.5-14.5)
[2018-02-09 04:38] LABS: CALC OSMOLALITY 273 mosm/kg (275-300); CALCIUM 9.8 mg/dL (8.5-10.1); CHLORIDE - SERUM 97 mmol/L (98-107); CREATININE - SERUM 0.6 mg/dL (0.6-1.3); GLUCOSE 142 mg/dL (74-106); MAGNESIUM - SERUM 2.1 mg/dL (1.8-2.4); PHOSPHOROUS 3.1 mg/dL (2.5-4.9); POTASSIUM - SERUM 3.8 mmol/L (3.5-5.1); SODIUM 134 mmol/L (136-145); UREA NITROGEN 25 mg/dL (7-18); eGFR NON AFRICAN AMERICAN > 90 mL/min (90-120)
[2018-02-09 08:19] LABS: FUNGUS MYCOLOGY CULTURE Final report (())
[2018-02-10] VITALS (24 sets, daily range): BP systolic 95–124; BP diastolic 51–84
[2018-02-10 04:21] LABS: BASOPHILS 0.3 % (0-2); HEMATOCRIT 28.2 % (36.0-48.0); HEMOGLOBIN 9.2 g/dL (12-16); IMMATURE GRANULOCYTES 0.6 % (0-5); MCH 29.1 pg (26.0-34.0); MCHC 32.6 g/dL (31.0-37.0); MCV 89.2 fL (80.0-100.0); MEAN PLATELET VOLUME 9.8 fL (7.4-10.4); NEUTROPHILS 58.1 % (40-80); PLATELET COUNT 379 10x3/uL (130-400); RBC 3.16 10x6/uL (4.00-5.40); RDW 15.9 % (11.5-14.5); WBC 10.8 10x3/uL (4.8-10.8)
[2018-02-10 04:33] LABS: CALC OSMOLALITY 272 mosm/kg (275-300); CALCIUM 10.2 mg/dL (8.5-10.1); CARBON DIOXIDE 35.1 mmol/L (21.0-32.0); CHLORIDE - SERUM 93 mmol/L (98-107); CREATININE - SERUM 0.7 mg/dL (0.6-1.3); GLUCOSE 110 mg/dL (74-106); MAGNESIUM - SERUM 1.9 mg/dL (1.8-2.4); PHOSPHOROUS 3.7 mg/dL (2.5-4.9); POTASSIUM - SERUM 3.6 mmol/L (3.5-5.1); SODIUM 134 mmol/L (136-145); UREA NITROGEN 24 mg/dL (7-18); eGFR NON AFRICAN AMERICAN 89 mL/min (90-120)
[2018-02-11] VITALS (21 sets, daily range): BP systolic 93–119; BP diastolic 57–99
[2018-02-11 03:36] LABS: BASOPHILS 0.1 % (0-2); EOSINOPHILS 1.6 % (0-7); HEMATOCRIT 28.7 % (36.0-48.0); HEMOGLOBIN 9.4 g/dL (12-16); IMMATURE GRANULOCYTES 0.7 % (0-5); LYMPHOCYTES 38.6 % (15-50); MCHC 32.8 g/dL (31.0-37.0); MCV 88.6 fL (80.0-100.0); MEAN PLATELET VOLUME 9.1 fL (7.4-10.4); MONOCYTES 9.8 % (2-11); NEUTROPHILS 49.2 % (40-80); PLATELET COUNT 398 10x3/uL (130-400); RBC 3.24 10x6/uL (4.00-5.40); RDW 15.8 % (11.5-14.5)
[2018-02-11 03:38] LABS: WBC 13.6 10x3/uL (4.8-10.8)
[2018-02-11 03:44] LABS: CALC OSMOLALITY 277 mosm/kg (275-300); CALCIUM 9.6 mg/dL (8.5-10.1); CARBON DIOXIDE 35.8 mmol/L (21.0-32.0); CHLORIDE - SERUM 95 mmol/L (98-107); CREATININE - SERUM 0.7 mg/dL (0.6-1.3); GLUCOSE 123 mg/dL (74-106); POTASSIUM - SERUM 3.9 mmol/L (3.5-5.1); SODIUM 136 mmol/L (136-145); UREA NITROGEN 26 mg/dL (7-18); eGFR NON AFRICAN AMERICAN 89 mL/min (90-120)
[2018-02-11 08:52] LABS: MAGNESIUM - SERUM 2.1 mg/dL (1.8-2.4); PHOSPHOROUS 3.7 mg/dL (2.5-4.9)
[2018-02-11 16:15] LABS: FUNGUS STAIN Final report (())
[2018-02-11 18:10] LABS: ACID FAST SMEAR Negative (()); AFB SPECIMEN PROCESSING Concentration (())
[2018-02-12] VITALS (24 sets, daily range): BP systolic 78–130; BP diastolic 55–89
[2018-02-12 04:13] LABS: BASOPHILS 0.2 % (0-2); EOSINOPHILS 1.6 % (0-7); HEMATOCRIT 27.2 % (36.0-48.0); HEMOGLOBIN 8.9 g/dL (12-16); IMMATURE GRANULOCYTES 0.4 % (0-5); LYMPHOCYTES 32.2 % (15-50); MCH 29.2 pg (26.0-34.0); MCHC 32.7 g/dL (31.0-37.0); MCV 89.2 fL (80.0-100.0); MEAN PLATELET VOLUME 9.3 fL (7.4-10.4); NEUTROPHILS 56.6 % (40-80); PLATELET COUNT 437 10x3/uL (130-400); RBC 3.05 10x6/uL (4.00-5.40); RDW 16.4 % (11.5-14.5); WBC 12.3 10x3/uL (4.8-10.8)
[2018-02-12 04:29] LABS: CALC OSMOLALITY 280 mosm/kg (275-300); CALCIUM 9.9 mg/dL (8.5-10.1); CARBON DIOXIDE 33.4 mmol/L (21.0-32.0); CHLORIDE - SERUM 94 mmol/L (98-107); CREATININE - SERUM 0.8 mg/dL (0.6-1.3); POTASSIUM - SERUM 3.9 mmol/L (3.5-5.1); SODIUM 135 mmol/L (136-145); UREA NITROGEN 27 mg/dL (7-18); eGFR NON AFRICAN AMERICAN 76 mL/min (90-120)
[2018-02-12 04:37] LABS: GLUCOSE 215 mg/dL (74-106)
[2018-02-13] VITALS (24 sets, daily range): BP systolic 98–136; BP diastolic 57–81
[2018-02-13 05:50] LABS: BASOPHILS 0.3 % (0-2); EOSINOPHILS 1.7 % (0-7); HEMATOCRIT 27.2 % (36.0-48.0); HEMOGLOBIN 8.7 g/dL (12-16); IMMATURE GRANULOCYTES 0.4 % (0-5); LYMPHOCYTES 24.8 % (15-50); MCH 28.6 pg (26.0-34.0); MCV 89.5 fL (80.0-100.0); MONOCYTES 10.6 % (2-11); NEUTROPHILS 62.2 % (40-80); PLATELET COUNT 400 10x3/uL (130-400); RBC 3.04 10x6/uL (4.00-5.40); RDW 16.5 % (11.5-14.5); WBC 11.7 10x3/uL (4.8-10.8)
[2018-02-13 05:56] LABS: CALC OSMOLALITY 275 mosm/kg (275-300); CALCIUM 9.8 mg/dL (8.5-10.1); CARBON DIOXIDE 32.8 mmol/L (21.0-32.0); CHLORIDE - SERUM 95 mmol/L (98-107); CREATININE - SERUM 0.7 mg/dL (0.6-1.3); POTASSIUM - SERUM 3.8 mmol/L (3.5-5.1); SODIUM 136 mmol/L (136-145); UREA NITROGEN 24 mg/dL (7-18); eGFR NON AFRICAN AMERICAN 89 mL/min (90-120)
[2018-02-13 06:04] LABS: GLUCOSE 97 mg/dL (74-106)
[2018-02-14] VITALS (24 sets, daily range): BP systolic 80–114; BP diastolic 55–63
[2018-02-14 05:45] LABS: BASOPHILS 0.2 % (0-2); EOSINOPHILS 1.5 % (0-7); HEMATOCRIT 26.7 % (36.0-48.0); HEMOGLOBIN 8.7 g/dL (12-16); IMMATURE GRANULOCYTES 0.3 % (0-5); LYMPHOCYTES 23.4 % (15-50); MCH 29.2 pg (26.0-34.0); MCHC 32.6 g/dL (31.0-37.0); MCV 89.6 fL (80.0-100.0); MEAN PLATELET VOLUME 8.5 fL (7.4-10.4); MONOCYTES 9.1 % (2-11); NEUTROPHILS 65.5 % (40-80); PLATELET COUNT 401 10x3/uL (130-400); RBC 2.98 10x6/uL (4.00-5.40); RDW 16.6 % (11.5-14.5); WBC 12.3 10x3/uL (4.8-10.8)
[2018-02-14 06:02] LABS: CALC OSMOLALITY 275 mosm/kg (275-300); CALCIUM 9.7 mg/dL (8.5-10.1); CARBON DIOXIDE 34.5 mmol/L (21.0-32.0); CHLORIDE - SERUM 96 mmol/L (98-107); CREATININE - SERUM 0.6 mg/dL (0.6-1.3); GLUCOSE 97 mg/dL (74-106); POTASSIUM - SERUM 3.8 mmol/L (3.5-5.1); SODIUM 136 mmol/L (136-145); UREA NITROGEN 23 mg/dL (7-18); eGFR NON AFRICAN AMERICAN > 90 mL/min (90-120)
[2018-02-15] VITALS (26 sets, daily range): BP systolic 89–117; BP diastolic 53–72
[2018-02-15 06:04] LABS: BASOPHILS 0.2 % (0-2); EOSINOPHILS 0.9 % (0-7); HEMATOCRIT 25.9 % (36.0-48.0); HEMOGLOBIN 8.4 g/dL (12-16); IMMATURE GRANULOCYTES 0.2 % (0-5); MCH 29.2 pg (26.0-34.0); MCHC 32.4 g/dL (31.0-37.0); MCV 89.9 fL (80.0-100.0); MEAN PLATELET VOLUME 8.9 fL (7.4-10.4); MONOCYTES 10.3 % (2-11); NEUTROPHILS 59.4 % (40-80); PLATELET COUNT 403 10x3/uL (130-400); RBC 2.88 10x6/uL (4.00-5.40); RDW 16.7 % (11.5-14.5); WBC 9.7 10x3/uL (4.8-10.8)
[2018-02-15 06:29] LABS: ALBUMIN 3.6 g/dL (3.4-5.0); ALKALINE PHOSPHATASE 157 U/L (46-116); ALT (SGPT) 35 U/L (10-68); BILIRUBIN - TOTAL 0.78 mg/dL (0.2-1.3); CALC OSMOLALITY 274 mosm/kg (275-300); CARBON DIOXIDE 32.5 mmol/L (21.0-32.0); CHLORIDE - SERUM 97 mmol/L (98-107); CREATININE - SERUM 0.7 mg/dL (0.6-1.3); GLUCOSE 99 mg/dL (74-106); PROTEIN - SERUM 7.5 g/dL (6.4-8.2); SODIUM 136 mmol/L (136-145); UREA NITROGEN 20 mg/dL (7-18); eGFR NON AFRICAN AMERICAN 89 mL/min (90-120)
[2018-02-15 06:31] LABS: POTASSIUM - SERUM 3.1 mmol/L (3.5-5.1)
[2018-02-16] VITALS (11 sets, daily range): BP systolic 96–114; BP diastolic 52–63
[2018-02-16 05:49] LABS: BASOPHILS 0.2 % (0-2); HEMOGLOBIN 8.7 g/dL (12-16); IMMATURE GRANULOCYTES 0.3 % (0-5); LYMPHOCYTES 29.4 % (15-50); MCH 29.1 pg (26.0-34.0); MCHC 32.2 g/dL (31.0-37.0); MCV 90.3 fL (80.0-100.0); MONOCYTES 11.2 % (2-11); NEUTROPHILS 56.9 % (40-80); PLATELET COUNT 421 10x3/uL (130-400); RBC 2.99 10x6/uL (4.00-5.40); RDW 17.1 % (11.5-14.5)
[2018-02-16 06:04] LABS: CALC OSMOLALITY 271 mosm/kg (275-300); CALCIUM 9.7 mg/dL (8.5-10.1); CARBON DIOXIDE 32.4 mmol/L (21.0-32.0); CHLORIDE - SERUM 95 mmol/L (98-107); CREATININE - SERUM 0.7 mg/dL (0.6-1.3); GLUCOSE 98 mg/dL (74-106); POTASSIUM - SERUM 3.6 mmol/L (3.5-5.1); SODIUM 135 mmol/L (136-145); UREA NITROGEN 19 mg/dL (7-18); eGFR NON AFRICAN AMERICAN 89 mL/min (90-120)
[2018-02-16 16:14] LABS: FUNGUS CULTURE RESULT 1 Candida albicans (()); FUNGUS MYCOLOGY CULTURE Final report (())
[2018-03-08 16:10] LABS: ACID FAST CULTURE Negative (()); ACID FAST SMEAR Negative (())
[2018-03-10 16:15] LABS: FUNGUS MYCOLOGY CULTURE Final report (())
[2018-03-21 10:12] LABS: ACID FAST CULTURE Negative (()); ACID FAST SMEAR Negative (())
== END 2018-02-16 14:35 | disposition short-term general hospital (02) | DRG 3 ==
LOC: D.ER 10:17 → D.ICU 12:00 → D.MS 12:00 → D.EDHOLD 12:00 → D.MS 18:32 → D.ICU 12-16 17:19 → D.MS 12-20 12:51 → D.ICU 12-22 14:16 → D.MS 12-29 16:30 → D.ICU 01-08 12:33
PROVIDERS: Emergency Medicine; Family Medicine; Internal Medicine Gastroenterology; Internal Medicine Nephrology; Internal Medicine Pulmonary Disease; Radiology Diagnostic Radiology; Specialist; Student in an Organized Health Care Education/Training Program; Surgery
PROC: 0DJ08ZZ Inspection of Upper Intestinal Tract, Via Natural or Artificial Opening Endoscopic (ICD-10-PCS; principal; 2017-12-15)
PROC: 0DJD8ZZ Inspection of Lower Intestinal Tract, Via Natural or Artificial Opening Endoscopic (ICD-10-PCS; 2017-12-15)
PROC: 3E063XZ Introduction of Vasopressor into Central Artery, Percutaneous Approach (ICD-10-PCS; 2017-12-16)
PROC: 0JNC0ZZ Release Pelvic Region Subcutaneous Tissue and Fascia, Open Approach (ICD-10-PCS; 2017-12-22)
PROC: 05H533Z Insertion of Infusion Device into Right Subclavian Vein, Percutaneous Approach (ICD-10-PCS; 2017-12-22)
PROC: 0DJ08ZZ Inspection of Upper Intestinal Tract, Via Natural or Artificial Opening Endoscopic (ICD-10-PCS; 2017-12-22)
PROC: 0DJ08ZZ Inspection of Upper Intestinal Tract, Via Natural or Artificial Opening Endoscopic (ICD-10-PCS; 2017-12-22)
PROC: 0DQA4ZZ Repair Jejunum, Percutaneous Endoscopic Approach (ICD-10-PCS; 2017-12-22)
PROC: 0DTG0ZZ Resection of Left Large Intestine, Open Approach (ICD-10-PCS; 2018-01-08)
PROC: 0D1L0Z4 Bypass Transverse Colon to Cutaneous, Open Approach (ICD-10-PCS; 2018-01-08)
PROC: 5A1955Z Respiratory Ventilation, Greater than 96 Consecutive Hours (ICD-10-PCS; 2018-01-10)
PROC: 0B978ZZ Drainage of Left Main Bronchus, Via Natural or Artificial Opening Endoscopic (ICD-10-PCS; 2018-01-11)
PROC: 0B938ZZ Drainage of Right Main Bronchus, Via Natural or Artificial Opening Endoscopic (ICD-10-PCS; 2018-01-11)
PROC: 0B113F4 Bypass Trachea to Cutaneous with Tracheostomy Device, Percutaneous Approach (ICD-10-PCS; 2018-01-25)
PROC: 0B928ZZ Drainage of Carina, Via Natural or Artificial Opening Endoscopic (ICD-10-PCS; 2018-01-28)
PROC: 0B948ZZ Drainage of Right Upper Lobe Bronchus, Via Natural or Artificial Opening Endoscopic (ICD-10-PCS; 2018-01-28)
PROC: 0B988ZZ Drainage of Left Upper Lobe Bronchus, Via Natural or Artificial Opening Endoscopic (ICD-10-PCS; 2018-01-28)
PROC: 0B918ZZ Drainage of Trachea, Via Natural or Artificial Opening Endoscopic (ICD-10-PCS; 2018-01-28)
PROC: 0B958ZZ Drainage of Right Middle Lobe Bronchus, Via Natural or Artificial Opening Endoscopic (ICD-10-PCS; 2018-01-28)
PROC: 0B938ZZ Drainage of Right Main Bronchus, Via Natural or Artificial Opening Endoscopic (ICD-10-PCS; 2018-01-28)
PROC: 0B978ZZ Drainage of Left Main Bronchus, Via Natural or Artificial Opening Endoscopic (ICD-10-PCS; 2018-01-28)
PROC: 0B968ZZ Drainage of Right Lower Lobe Bronchus, Via Natural or Artificial Opening Endoscopic (ICD-10-PCS; 2018-01-28)
PROC: 0B9B8ZZ Drainage of Left Lower Lobe Bronchus, Via Natural or Artificial Opening Endoscopic (ICD-10-PCS; 2018-01-28)
PROC: 0B998ZZ Drainage of Lingula Bronchus, Via Natural or Artificial Opening Endoscopic (ICD-10-PCS; 2018-01-28)
PROC: 05HY33Z Insertion of Infusion Device into Upper Vein, Percutaneous Approach (ICD-10-PCS; 2018-02-01)
DX: K95.89 Other complications of other bariatric procedure (principal); K72.00 Acute and subacute hepatic failure without coma; A41.9 Sepsis, unspecified organism; K63.1 Perforation of intestine (nontraumatic); K65.9 Peritonitis, unspecified; K55.1 Chronic vascular disorders of intestine; D62 Acute posthemorrhagic anemia; N17.9 Acute kidney failure, unspecified; E87.2 Acidosis; T81.4XXA Infection following a procedure, initial encounter; K56.7 Ileus, unspecified; K63.2 Fistula of intestine; K91.872 Postprocedural seroma of a digestive system organ or structure following a digestive system procedure; K91.840 Postprocedural hemorrhage of a digestive system organ or structure following a digestive system procedure; Z98.84 Bariatric surgery status; I95.9 Hypotension, unspecified; G20 Parkinson's disease; E55.9 Vitamin D deficiency, unspecified; F41.8 Other specified anxiety disorders; Z85.41 Personal history of malignant neoplasm of cervix uteri; R00.0 Tachycardia, unspecified; Y83.9 Surgical procedure, unspecified as the cause of abnormal reaction of the patient, or of later complication, without mention of misadventure at the time of the procedure; R19.7 Diarrhea, unspecified

== ENCOUNTER 2018-03-09 15:06 | Inpatient (IN) | payer OTHER, MEDICARE ==
[~2018-03-09] VITALS: Ht 162.6 cm; Wt 74.8 kg
--- NOTE | ~2018-03-09 | DS ---
PATIENT:BIENVENIDO ROGERS :51 MEDICAL RECORD: [id number] DISCHARGE SUMMARY ADMISSION DATE: 03/09/18 DISCHARGE DATE: 03/21/18 This is a discharge dated 03/21/2018 from inpatient rehabilitation. 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 SECONDARY DIAGNOSES: 1. Perforated bowel, status post hemicolectomy. 2. Colostomy. 3. Coccyx decubitus. 4. Hypokalemia. 5. Acute blood loss anemia. 6. Gastrointestinal bleed by history. 7. Urinary tract infection with cultures positive for Klebsiella pneumoniae. 8. Depression/anxiety. 9. Parkinson disease. 10. Hypertension. 11. ETOH abuse by history. 12. Vitamin D deficiency. HOSPITAL COURSE: Full H&P is located elsewhere on the chart on this 63-year-old female who is admitted to inpatient rehab for physical therapy and occupational therapy to improve gait, transfer skills, bed mobility, and activities of daily living to a modified independent level. She was evaluated by PT and OT and their plans of care were followed. She required halfway care for observation and assessment, medication administration. Electrolytes were managed by protocol. She required wound care for management of coccyx decubitus and she continued on Levaquin for IV antibiotic coverage for UTI. She had DuoNeb for respiratory support. She was cooperative with therapies, progressing towards goals. Case management was involved for discharge planning. She was considered stable for discharge on 03/21/2018. DISCHARGE MEDICATIONS: As per discharge medication reconciliation. DISCHARGE DISPOSITION: The patient is discharged home. She will continue her current diet and level of activity. She will have home health for continued PT and OT. She will follow up with primary care and specialists as directed. At least 30 minutes was spent in this discharge activity. TRANSINT:[id number] Voice Confirmation ID: [id number] DOCUMENT ID: [id number] Dictated By: LIZABETH ARMENDARIZ I have interviewed/examined the above patient and agree with these documented findings. DISCHARGE SUMMARY REPORT [id number] BIENVENIDO ROGERS SCOTT MD CC: [id number] DICTATION DATE: 05/15/18 1434 WIRE SPLICER: 05/15/182129 DIS IN 03/21/18 [place] [id number] [place] [address]
--- NOTE | ~2018-03-09 | RHP ---
PATIENT: BIENVENIDO ROGERS MEDICAL RECORD: [id number] ACCOUNT: [id number] LOCATION:[facility]1109 : 51 ADMISSION DATE: 03/09/18 REHABILITATION HISTORY AND PHYSICAL EXAMINATION POST ADMISSION PHYSICIAN EXAMINATION DATE OF ADMISSION: 03/09/2018 ADMITTING DIAGNOSES: Critical illness myopathy. HISTORY OF PRESENT ILLNESS: The patient is a 63-year-old female patient who was admitted to inpatient rehab with a neurological condition of critical illness myopathy. She was admitted to the acute hospital on 12/15/2017 with an upper gastrointestinal bleed, found on a nuclear medicine bleeding scan. She has got a history of GPB. EGD showed no signs of active bleeding. She was having some melanotic stools up to 2 days prior to admission. Her initial hemoglobin was 6. Her hemoglobin angela with a total of 6 units of packed red blood cells, but again going down again. She was placed on vasopressin. Mesenteric arteriogram showed no signs of active bleeding. Surgery was consulted. She went to the OR for exploratory lap. 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 On 01/08/2018, she was taken back to the OR for left hemicolectomy and transverse colostomy with wound VAC placement to the left leg. Postop, she developed acute hypoxic respiratory failure requiring mechanical ventilation as well as liver failure, pulmonary edema, Pseudomonas pneumonia and acute renal failure. A trach was inserted for continued ventilation on 01/25/2018. She was successfully extubated and with 30% trach collar on 02/08/2018. On 02/16/2018, she was transferred to the LTAC for continued trach care and weaning. She continued to tolerate trach weaning and on 02/21/2018, she was decannulated for pulmonary. She continued to have tremor secondary to her Parkinson disease and neurology was consulted for medication adjustment. She has had no difficulty swallowing and is tolerating mechanical soft diet. She is alert and feeling better. Her wound VAC has been removed and she is on wet to dry dressing to the wound on her left flank. She has had no bleeding from her ostomy and wants to reverse in the future. She is a patient of Dr. Lemon with a past medical history of Parkinson, TIA, cervical cancer, and gastric bypass. Other surgical history includes cholecystectomy. Prior to admission, she was living with her , was independent with ADLs and ambulation. She is now ambulating 30 feet with a rolling walker with max assist times 2. She is extremely fatigued with activity. She had difficulty with sit to stand secondary to proximal muscle weakness. She is max assist for lower extremity dressing and bathroom tasks. She will require intensive therapy hopefully to get her back to her prior level of functioning and to return home. COMORBIDITIES: In this patient include acute hypoxic respiratory failure - status post tracheostomy, hypoxia, pulmonary edema, volume overload, coagulopathy, Pseudomonas pneumonia, fistula, perforated bowel, leukocytosis, status post hemicolectomy, GI bleed, hypokalemia, fever, tremors, chronic anemia, hypertension, debility, fatigue, weakness, UTI, blood loss anemia, hypocalcemia, shock liver, lactic acidosis, severe abdominal pain, Parkinson disease, vitamin D deficiency, alcohol dependence, depression, anxiety, and ileus. HISTORY AND PHYSICAL [id number] BIENVENIDO ROGERS PAST MEDICAL HISTORY: Significant for cervical cancer, depression, and anxiety. PAST SURGICAL HISTORY: Includes gastric bypass. She has had a brain stimulator. She had hysterectomy, kidney stone. ALLERGIES: SULFA AND CODEINE. CURRENT MEDICATIONS: Include Duragesic patch 50 mcg q. 72 hours, furosemide 40 mg b.i.d., Levaquin 500 mg daily, Sinemet 25/100 one tab t.i.d., potassium 20 mEq b.i.d., Calmoseptine as needed, Ativan 0.5 mg every 4 hours p.r.n., Tylenol 325 mg q. 4 hours p.r.n., Zofran ODT 4 mg q. 4 hours p.r.n., DuoNeb updrafts, and [place] 10/325 one tab q. 4 hours p.r.n. HABITS: No alcohol or tobacco use. FAMILY HISTORY: Noncontributory. SOCIAL HISTORY: The patient hopes to return back home and get back to her prior level of functioning. REVIEW OF SYSTEMS: GENERAL: Does complain of weakness and fatigue. HEENT: Denies cold, cough, or congestion. CARDIOVASCULAR: Denies chest pain. PHYSICAL EXAMINATION: VITAL SIGNS: Stable, afebrile. GENERAL: An elderly female, in no acute distress. HEENT: Normocephalic and atraumatic. Mucosa moist. NECK: Supple. No lymphadenopathy. LUNGS: Clear at this time. HEART: Regular rate and rhythm. ABDOMEN: Soft. She does have a colostomy inside. It appears to be viable with no signs of ischemia or infection. NEUROLOGIC: She does have proximal muscle weakness and symptoms consistent with Parkinson's. LABORATORY DATA: Her white count 6.9, H&H 10 and 30, and platelet count was noted to be 366. Her sodium is 137, potassium 3.5, BUN and creatinine of 10 and 0.8 and blood sugar is noted to be 92. Admit UA did show 2+ leukocyte esterase, greater than 50 white blood cells, and moderate bacteria. Culture has been set up. ASSESSMENT: This is a 63-year-old female patient admitted to rehab with the working diagnosis of critical illness myopathy complicated by prolonged stay in the long-term acute care hospital. The patient is potential to make improvement. We will institute the following multidisciplinary therapies including but not limited to physical, occupational, respiratory, speech, nutritional services, prosthetics, and orthotics. Given her complex medical condition and risks for more complications, rehabilitation services cannot be HISTORY AND PHYSICAL [id number] BIENVENIDO ROGERS provided at a low level of care such as a skilled nurse facility. PLAN: 1. Admit to [facility] for intensive inpatient therapy to include the following disciplines: A. Physical therapy to improve gait, all transfer skills and bed mobility to a modified independent level. B. Occupational therapy to improve activities of daily living to a modified independent level. C. Case management to assist with discharge planning and placement options. D. Nutrition to assist with nutritional needs. E. Rehabilitation nursing to assist in monitoring the patient's underlying medical conditions and to assist with any type of bowel or bladder management. 2. The patient's current medication and medical care will be continued. 3. The patient will be placed on standard fall precautions. 4. The patient's estimated length of stay is approximately 7-10 days. 5. We will discuss this patient during care team staff meeting this week. TRANSINT:[id number] Voice Confirmation ID: [id number] DOCUMENT ID: [id number] SHERMAN notes whether there has been none or any medical/functional change since admission: - No change since the PAS SHERMAN attests patient continues to be appropriate for IRF: - Remains appropriate for the IRF CARMEN HARRIS MD at 1516 CC: [id number] DICTATION DATE: 03/10/18 0853 DIRECTOR INDUSTRIAL: 03/10/18 1157 ADM [address] [place] [id number] [place] [id number]
[~2018-03-09 15:06] MED LIST changes: +PROTONIX40 MG PO
[2018-03-09 15:32] VITALS: BP 106/57; BMI 28.4
[2018-03-09 18:16] LABS: APPEARANCE CLEAR (CLEAR); BILIRUBIN NEGATIVE (NEGATIVE); COLOR YELLOW (YELLOW); GLUCOSE NEGATIVE (NEGATIVE); KETONE NEGATIVE (NEGATIVE); NITRITE NEGATIVE (NEGATIVE); PROTEIN TRACE mg/dL (NEGATIVE); SPECIFIC GRAVITY 1.015 (1.005-1.020); UROBILINOGEN NORMAL (NORMAL)
[2018-03-09 18:18] LABS: BACTERIA MODERATE /hpf (NONE SEEN); EPITHELIAL CELLS 0-5 /hpf (0-5); RED CELLS - URINE 0-5 /hpf (0-5); WHITE CELLS - URINE >50 /hpf (0-5); YEAST >1+ WITH HYPHAE /hpf (NONE SEEN)
[2018-03-09 19:00] VITALS: BP 92/46
[2018-03-10 07:25] LABS: BASOPHILS 0.3 % (0-2); EOSINOPHILS 2.5 % (0-7); HEMATOCRIT 30.4 % (36.0-48.0); IMMATURE GRANULOCYTES 0.6 % (0-5); LYMPHOCYTES 31.3 % (15-50); MCH 30.6 pg (26.0-34.0); MCHC 32.9 g/dL (31.0-37.0); MEAN PLATELET VOLUME 8.7 fL (7.4-10.4); MONOCYTES 12.6 % (2-11); NEUTROPHILS 52.7 % (40-80); PLATELET COUNT 366 10x3/uL (130-400); RBC 3.27 10x6/uL (4.00-5.40); RDW 16.7 % (11.5-14.5); WBC 6.9 10x3/uL (4.8-10.8)
[2018-03-10 07:49] LABS: CALC OSMOLALITY 272 mosm/kg (275-300); CALCIUM 9.2 mg/dL (8.5-10.1); CHLORIDE - SERUM 97 mmol/L (98-107); CREATININE - SERUM 0.8 mg/dL (0.6-1.3); GLUCOSE 92 mg/dL (74-106); POTASSIUM - SERUM 3.5 mmol/L (3.5-5.1); SODIUM 137 mmol/L (136-145); UREA NITROGEN 10 mg/dL (7-18); eGFR NON AFRICAN AMERICAN 76 mL/min (90-120)
[2018-03-10 08:00] VITALS: BP 107/67
[2018-03-10 10:02] VITALS: Ht 162.6 cm; Wt 74.8 kg
[2018-03-10 19:00] VITALS: BP 90/45
[2018-03-11 05:13] LABS: BASOPHILS 0.3 % (0-2); EOSINOPHILS 1.9 % (0-7); HEMATOCRIT 31.5 % (36.0-48.0); HEMOGLOBIN 10.4 g/dL (12-16); IMMATURE GRANULOCYTES 0.3 % (0-5); LYMPHOCYTES 32.1 % (15-50); MCH 30.4 pg (26.0-34.0); MCV 92.1 fL (80.0-100.0); MEAN PLATELET VOLUME 8.4 fL (7.4-10.4); MONOCYTES 12.9 % (2-11); NEUTROPHILS 52.5 % (40-80); PLATELET COUNT 374 10x3/uL (130-400); RBC 3.42 10x6/uL (4.00-5.40); RDW 16.6 % (11.5-14.5); WBC 6.4 10x3/uL (4.8-10.8)
[2018-03-11 05:40] LABS: ANION GAP 8.9 mmol/L (8-16); CARBON DIOXIDE 32.7 mmol/L (21.0-32.0); CREATININE - SERUM 0.9 mg/dL (0.6-1.3); POTASSIUM - SERUM 3.6 mmol/L (3.5-5.1)
[2018-03-11 08:00] VITALS: BP 100/53
[2018-03-11 21:06] VITALS: BP 100/48
[2018-03-12 08:02] VITALS: BP 105/43
[2018-03-13 12:01] VITALS: BP 101/64
[2018-03-14 05:01] LABS: BASOPHILS 0.3 % (0-2); EOSINOPHILS 2.8 % (0-7); HEMATOCRIT 31.6 % (36.0-48.0); HEMOGLOBIN 10.4 g/dL (12-16); IMMATURE GRANULOCYTES 0.4 % (0-5); LYMPHOCYTES 32.8 % (15-50); MCH 30.4 pg (26.0-34.0); MCHC 32.9 g/dL (31.0-37.0); MCV 92.4 fL (80.0-100.0); MEAN PLATELET VOLUME 8.8 fL (7.4-10.4); MONOCYTES 12.7 % (2-11); PLATELET COUNT 444 10x3/uL (130-400); RBC 3.42 10x6/uL (4.00-5.40); RDW 16.4 % (11.5-14.5); WBC 6.8 10x3/uL (4.8-10.8)
[2018-03-14 05:39] LABS: CALC OSMOLALITY 264 mosm/kg (275-300); CALCIUM 9.3 mg/dL (8.5-10.1); CARBON DIOXIDE 31.9 mmol/L (21.0-32.0); CHLORIDE - SERUM 96 mmol/L (98-107); CREATININE - SERUM 0.8 mg/dL (0.6-1.3); GLUCOSE 97 mg/dL (74-106); POTASSIUM - SERUM 3.8 mmol/L (3.5-5.1); SODIUM 133 mmol/L (136-145); UREA NITROGEN 9 mg/dL (7-18); eGFR NON AFRICAN AMERICAN 76 mL/min (90-120)
[2018-03-14 07:00] VITALS: BP 110/56
[2018-03-14 20:00] VITALS: BP 103/50
[2018-03-15 08:00] VITALS: BP 107/56
[2018-03-15 20:15] VITALS: BP 90/49
[2018-03-16 08:00] VITALS: BP 106/57
[2018-03-16 08:38] LABS: BASOPHILS 0.3 % (0-2); HEMATOCRIT 33.3 % (36.0-48.0); IMMATURE GRANULOCYTES 0.5 % (0-5); LYMPHOCYTES 30.1 % (15-50); MCH 30.5 pg (26.0-34.0); MCV 92.2 fL (80.0-100.0); MEAN PLATELET VOLUME 8.7 fL (7.4-10.4); MONOCYTES 11.8 % (2-11); NEUTROPHILS 55.3 % (40-80); PLATELET COUNT 460 10x3/uL (130-400); RBC 3.61 10x6/uL (4.00-5.40); RDW 16.5 % (11.5-14.5); WBC 6.4 10x3/uL (4.8-10.8)
[2018-03-16 08:51] LABS: CALC OSMOLALITY 273 mosm/kg (275-300); CALCIUM 9.1 mg/dL (8.5-10.1); CHLORIDE - SERUM 97 mmol/L (98-107); CREATININE - SERUM 0.7 mg/dL (0.6-1.3); GLUCOSE 88 mg/dL (74-106); POTASSIUM - SERUM 3.6 mmol/L (3.5-5.1); SODIUM 138 mmol/L (136-145); UREA NITROGEN 9 mg/dL (7-18); eGFR NON AFRICAN AMERICAN 89 mL/min (90-120)
[2018-03-16 19:00] VITALS: BP 102/47
[2018-03-17 08:00] VITALS: BP 120/54
[2018-03-17 19:00] VITALS: BP 101/51
[2018-03-18 07:02] LABS: BASOPHILS 0.4 % (0-2); EOSINOPHILS 3.1 % (0-7); HEMATOCRIT 32.1 % (36.0-48.0); HEMOGLOBIN 10.6 g/dL (12-16); LYMPHOCYTES 34.2 % (15-50); MCH 30.7 pg (26.0-34.0); MEAN PLATELET VOLUME 8.4 fL (7.4-10.4); MONOCYTES 14.6 % (2-11); NEUTROPHILS 46.7 % (40-80); PLATELET COUNT 420 10x3/uL (130-400); RBC 3.45 10x6/uL (4.00-5.40); RDW 16.6 % (11.5-14.5); WBC 6.7 10x3/uL (4.8-10.8)
[2018-03-18 07:31] LABS: CALC OSMOLALITY 271 mosm/kg (275-300); CALCIUM 9.2 mg/dL (8.5-10.1); CARBON DIOXIDE 32.3 mmol/L (21.0-32.0); CHLORIDE - SERUM 98 mmol/L (98-107); CREATININE - SERUM 0.7 mg/dL (0.6-1.3); GLUCOSE 90 mg/dL (74-106); POTASSIUM - SERUM 3.7 mmol/L (3.5-5.1); SODIUM 137 mmol/L (136-145); UREA NITROGEN 8 mg/dL (7-18); eGFR NON AFRICAN AMERICAN 89 mL/min (90-120)
[2018-03-18 08:00] VITALS: BP 94/52
[2018-03-18 19:00] VITALS: BP 105/55
[2018-03-19 18:15] LABS: ALBUMIN 3.3 g/dL (3.4-5.0); ANION GAP 9.1 mmol/L (8-16); BILIRUBIN - TOTAL 0.52 mg/dL (0.2-1.3); CALCIUM 8.9 mg/dL (8.5-10.1); CARBON DIOXIDE 32.8 mmol/L (21.0-32.0); POTASSIUM - SERUM 2.9 mmol/L (3.5-5.1)
[2018-03-19 20:00] VITALS: BP 106/50
[2018-03-20 07:51] VITALS: BP 104/60
[2018-03-20 19:50] VITALS: BP 106/53
[2018-03-21 07:20] LABS: BASOPHILS 0.3 % (0-2); EOSINOPHILS 2.7 % (0-7); HEMATOCRIT 32.2 % (36.0-48.0); HEMOGLOBIN 10.6 g/dL (12-16); IMMATURE GRANULOCYTES 0.7 % (0-5); LYMPHOCYTES 37.2 % (15-50); MCH 30.5 pg (26.0-34.0); MCHC 32.9 g/dL (31.0-37.0); MCV 92.8 fL (80.0-100.0); MEAN PLATELET VOLUME 8.2 fL (7.4-10.4); MONOCYTES 12.3 % (2-11); NEUTROPHILS 46.8 % (40-80); PLATELET COUNT 389 10x3/uL (130-400); RBC 3.47 10x6/uL (4.00-5.40); RDW 16.4 % (11.5-14.5); WBC 5.9 10x3/uL (4.8-10.8)
[2018-03-21 07:43] LABS: CALCIUM 8.9 mg/dL (8.5-10.1); CARBON DIOXIDE 29.6 mmol/L (21.0-32.0); CHLORIDE - SERUM 98 mmol/L (98-107); GLUCOSE 98 mg/dL (74-106); POTASSIUM - SERUM 3.4 mmol/L (3.5-5.1); SODIUM 136 mmol/L (136-145); eGFR NON AFRICAN AMERICAN 89 mL/min (90-120)
[2018-03-21 07:49] LABS: CALC OSMOLALITY 269 mosm/kg (275-300); CREATININE - SERUM 0.7 mg/dL (0.6-1.3); UREA NITROGEN 7 mg/dL (7-18)
[2018-03-21 08:23] VITALS: BP 108/57
[2018-03-21] MEDS ORDERED: ATIVAN0.5 MG PO (08:27)
[2018-03-21] MEDS ORDERED: K-DUR20 MEQ PO ×2 (08:28→08:31)
[2018-03-21] MEDS ORDERED: LASIX40 MG PO (08:28)
[2018-03-21] MEDS ORDERED: SINEMET 25-2501 EACH PO (08:28)
[2018-05-09] MEDS ORDERED: XANAX1 MG PO (11:41)
[2018-05-09] MEDS ORDERED: LUNESTA2 M1 PO (11:44)
== END 2018-03-21 14:07 | disposition home health service (06) | DRG 91 ==
LOC: D.REHAB 15:06
PROVIDERS: Emergency Medicine
DX: G72.81 Critical illness myopathy (principal); J96.01 Acute respiratory failure with hypoxia; J15.1 Pneumonia due to Pseudomonas; K63.1 Perforation of intestine (nontraumatic); K72.00 Acute and subacute hepatic failure without coma; J81.1 Chronic pulmonary edema; D68.9 Coagulation defect, unspecified; N39.0 Urinary tract infection, site not specified; E87.2 Acidosis; Z93.0 Tracheostomy status; D72.829 Elevated white blood cell count, unspecified; E87.6 Hypokalemia; R50.9 Fever, unspecified; D64.9 Anemia, unspecified; I10 Essential (primary) hypertension; R53.81 Other malaise; R53.83 Other fatigue; R53.1 Weakness; G20 Parkinson's disease; E55.9 Vitamin D deficiency, unspecified; F10.20 Alcohol dependence, uncomplicated; F41.8 Other specified anxiety disorders; L89.152 Pressure ulcer of sacral region, stage 2

== ENCOUNTER 2018-04-17 18:52 | Emergency (ER) | payer OTHER, MEDICARE ==
[~2018-04-17] VITALS: Ht 162.6 cm; Wt 62.7 kg
[~2018-04-17 18:52] MED LIST changes: +ATIVAN0.5 MG PO; +K-DUR20 MEQ PO; +LASIX40 MG PO; +SINEMET 25-2501 EACH PO
[2018-04-17 18:55] VITALS: Ht 162.6 cm; Wt 62.7 kg
[2018-04-17 19:20] LABS: BASOPHILS 0.2 % (0-2); EOSINOPHILS 0.6 % (0-7); HEMATOCRIT 37.5 % (36.0-48.0); HEMOGLOBIN 12.3 g/dL (12-16); IMMATURE GRANULOCYTES 0.2 % (0-5); LYMPHOCYTES 33.4 % (15-50); MCH 31.8 pg (26.0-34.0); MCHC 32.8 g/dL (31.0-37.0); MCV 96.9 fL (80.0-100.0); MEAN PLATELET VOLUME 9.2 fL (7.4-10.4); MONOCYTES 10.6 % (2-11); RBC 3.87 10x6/uL (4.00-5.40); WBC 9.5 10x3/uL (4.8-10.8)
[2018-04-17 19:35] LABS: PLATELET COUNT 303 10x3/uL (130-400)
[2018-04-17 19:37] LABS: ALBUMIN 3.5 g/dL (3.4-5.0); ALKALINE PHOSPHATASE 148 U/L (46-116); ALT (SGPT) 16 U/L (10-68); BILIRUBIN - TOTAL 0.55 mg/dL (0.2-1.3); CALC OSMOLALITY 274 mosm/kg (275-300); CALCIUM 8.7 mg/dL (8.5-10.1); CARBON DIOXIDE 23.9 mmol/L (21.0-32.0); CHLORIDE - SERUM 103 mmol/L (98-107); CREATININE - SERUM 0.7 mg/dL (0.6-1.3); GLUCOSE 108 mg/dL (74-106); POTASSIUM - SERUM 3.9 mmol/L (3.5-5.1); PROTEIN - SERUM 6.9 g/dL (6.4-8.2); SODIUM 137 mmol/L (136-145); UREA NITROGEN 12 mg/dL (7-18); eGFR NON AFRICAN AMERICAN 89 mL/min (90-120)
[2018-04-17 21:33] LABS: APPEARANCE CLEAR (CLEAR); BILIRUBIN NEGATIVE (NEGATIVE); COLOR YELLOW (YELLOW); GLUCOSE NEGATIVE (NEGATIVE); KETONE NEGATIVE (NEGATIVE); NITRITE NEGATIVE (NEGATIVE); PROTEIN NEGATIVE (NEGATIVE); UROBILINOGEN NORMAL (NORMAL)
[2018-04-17 21:36] LABS: INR 0.9 (0.85-1.17); PROTIME 11.7 SECONDS (11.6-15.0)
[2018-04-17 21:48] LABS: C-REACTIVE PROTEIN 0.5 mg/dL (0.0-0.9); CKMB 0.5 U/L (0.0-3.6); CREATINE KINASE 26 UL (21-215); LIPASE 343 U/L (73-393); PRO BNP 171 pg/mL (0-125)
[2018-04-17 21:50] LABS: TROPONIN-I < 0.017 ng/mL (0.000-0.060)
[2018-04-17] MEDS ORDERED: DOXYCYCLINE HY100 M2 PO (23:26)
[2018-04-17] MEDS ORDERED: HYDROCODON-ACE1 EAC7 PO (23:26)
[2018-04-17 23:54] VITALS: BP 124/73
[2018-05-09] MEDS ORDERED: XANAX1 MG PO (11:41)
[2018-05-09] MEDS ORDERED: LUNESTA2 M1 PO (11:44)
== END 2018-04-17 23:55 | disposition home or self-care (01) ==
LOC: D.ER 18:52
PROVIDERS: Emergency Medicine
DX: R10.9 Unspecified abdominal pain (principal); Z93.3 Colostomy status; L76.82 Other postprocedural complications of skin and subcutaneous tissue; Z85.41 Personal history of malignant neoplasm of cervix uteri; Z90.5 Acquired absence of kidney

== ENCOUNTER 2018-04-21 10:35 | Emergency (ER) | payer OTHER, MEDICARE ==
[~2018-04-21] VITALS: Ht 162.6 cm; Wt 60.0 kg
[~2018-04-21 10:35] MED LIST changes: +DOXYCYCLINE HY100 M2 PO
[2018-04-21 10:50] VITALS: Ht 162.6 cm; Wt 60.0 kg
[2018-04-21 11:39] LABS: BASOPHILS 0.2 % (0-2); EOSINOPHILS 0.7 % (0-7); HEMOGLOBIN 13.2 g/dL (12-16); IMMATURE GRANULOCYTES 0.3 % (0-5); LYMPHOCYTES 17.5 % (15-50); MCH 32.4 pg (26.0-34.0); MCV 98.3 fL (80.0-100.0); MEAN PLATELET VOLUME 9.5 fL (7.4-10.4); MONOCYTES 8.3 % (2-11); PLATELET COUNT 311 10x3/uL (130-400); RBC 4.07 10x6/uL (4.00-5.40); RDW 14.7 % (11.5-14.5); WBC 9.1 10x3/uL (4.8-10.8)
[2018-04-21 12:03] LABS: ALBUMIN 3.4 g/dL (3.4-5.0); ALKALINE PHOSPHATASE 142 U/L (46-116); ALT (SGPT) 16 U/L (10-68); BILIRUBIN - TOTAL 0.33 mg/dL (0.2-1.3); CALC OSMOLALITY 275 mosm/kg (275-300); CALCIUM 8.8 mg/dL (8.5-10.1); CARBON DIOXIDE 28.1 mmol/L (21.0-32.0); CHLORIDE - SERUM 104 mmol/L (98-107); CREATININE - SERUM 0.7 mg/dL (0.6-1.3); GLUCOSE 129 mg/dL (74-106); SODIUM 137 mmol/L (136-145); UREA NITROGEN 12 mg/dL (7-18); eGFR NON AFRICAN AMERICAN 89 mL/min (90-120)
[2018-04-21 12:04] LABS: AMYLASE - SERUM 39 U/L (25-115); LIPASE 163 U/L (73-393); TROPONIN-I < 0.017 ng/mL (0.000-0.060)
[2018-04-21 13:31] LABS: APPEARANCE HAZY (CLEAR); BACTERIA FEW /hpf (NONE SEEN); BILIRUBIN NEGATIVE (NEGATIVE); COLOR YELLOW (YELLOW); EPITHELIAL CELLS 0-5 /hpf (0-5); GLUCOSE NEGATIVE (NEGATIVE); KETONE NEGATIVE (NEGATIVE); MUCUS <1+ /lpf (NONE SEEN); NITRITE NEGATIVE (NEGATIVE); PROTEIN TRACE mg/dL (NEGATIVE); RED CELLS - URINE OCC /hpf (0-5); SPECIFIC GRAVITY 1.025 (1.005-1.020); UROBILINOGEN NORMAL (NORMAL); WHITE CELLS - URINE 0-5 /hpf (0-5)
[2018-04-21] MEDS ORDERED: CHRONULAC30 ML PO (16:28)
[2018-04-21 17:42] VITALS: BP 139/078
[2018-05-09] MEDS ORDERED: XANAX1 MG PO (11:41)
[2018-05-09] MEDS ORDERED: LUNESTA2 M1 PO (11:44)
== END 2018-04-21 17:45 | disposition home or self-care (01) ==
LOC: D.ER 10:35
PROVIDERS: Family Medicine
DX: Z90.49 Acquired absence of other specified parts of digestive tract (principal); K59.00 Constipation, unspecified; R10.32 Left lower quadrant pain; Z93.3 Colostomy status

== ENCOUNTER 2018-05-10 05:45 | Inpatient (IN) | payer OTHER, MEDICARE ==
[2018-05-09 12:09] LABS: BASOPHILS 0.4 % (0-2); EOSINOPHILS 0.9 % (0-7); HEMATOCRIT 40.5 % (36.0-48.0); HEMOGLOBIN 13.4 g/dL (12-16); IMMATURE GRANULOCYTES 0.1 % (0-5); MCH 32.4 pg (26.0-34.0); MCHC 33.1 g/dL (31.0-37.0); MCV 98.1 fL (80.0-100.0); MEAN PLATELET VOLUME 9.1 fL (7.4-10.4); MONOCYTES 9.9 % (2-11); NEUTROPHILS 56.7 % (40-80); RBC 4.13 10x6/uL (4.00-5.40); RDW 13.9 % (11.5-14.5); WBC 8.5 10x3/uL (4.8-10.8)
[2018-05-09 12:10] LABS: PLATELET COUNT 384 10x3/uL (130-400)
[2018-05-09 12:14] LABS: CALC OSMOLALITY 279 mosm/kg (275-300); CALCIUM 9.5 mg/dL (8.5-10.1); CARBON DIOXIDE 29.1 mmol/L (21.0-32.0); CHLORIDE - SERUM 103 mmol/L (98-107); CREATININE - SERUM 0.8 mg/dL (0.6-1.3); GLUCOSE 121 mg/dL (74-106); POTASSIUM - SERUM 4.1 mmol/L (3.5-5.1); SODIUM 140 mmol/L (136-145); UREA NITROGEN 12 mg/dL (7-18); eGFR NON AFRICAN AMERICAN 76 mL/min (90-120)
[~2018-05-10] VITALS: Ht 162.6 cm; Wt 58.1 kg
--- NOTE | ~2018-05-10 | OP ---
PATIENT NAME: BIENVENIDO ROGERS MEDICAL RECORD: [id number] :51 LOCATION:[facility] ADMISSION DATE:05/10/18 SURGEON: LIBORIO HUGHES MD DATE OF OPERATION: 05/10/2018 PREOPERATIVE DIAGNOSES: 1. Colostomy. 2. Parkinson disease. 3. History of ischemic colitis. POSTOPERATIVE DIAGNOSES: 1. Colostomy. 2. Parkinson disease. 3. History of ischemic colitis. PROCEDURE: 1. Lysis of adhesions. 2. Colostomy takedown. 3. Repair of enterotomy. SURGEON: Liborio Hughes MD ARMORED SERVICE TECHNICIAN: Sammie Miller APRN REPORT OF PROCEDURE: The patient's abdomen was prepped and draped in sterile fashion and incision was made in the midline. The patient had a scar that was present and this was excised during our incision. We dissected through the subcutaneous tissues and fascia until we entered the abdominal cavity. The patient had a moderate amount of thin ascites present throughout the abdomen. Most of this was taken down with electrocautery or blunt dissection. In the left lower quadrant near the end of the remaining sigmoid colon rectal stump, there was noted to be some dense adhesions present. As we tried to pull these up, there was a small pocket which was probably an abscess cavity at one point, there was no sign of any purulent material. Once we freed this up, there was noted to be a hole in the small bowel that was nearby. I do not know if this was related to previous surgery and it walled off or if this was something that happened during this actual surgery. As we freed up the rest of the small bowel, we repaired this enterotomy by firing a 60 blue load DERECK stapler through this and then closing off the enterotomy ends using a 30 blue load TA stapler. We oversewed the suture lines using Lemberted 3-0 silks. After we freed up all the adhesions of the small bowel and was easily mobile, we could see presence of the jejunojejunostomy from her previous gastric bypass. The rest of the bowel appeared to be intact. The distal end of the rectum was removed about 2 cm back since it was incorporated in the small area where there might have been a previous abscess. The portion of colon that was left was a nice soft piece of colon with no signs of inflammatory changes. This was removed using a 60 blue load DERECK stapler. We then took down the colostomy using electrocautery. Once the colostomy was eviscerated into the abdominal cavity, then the distal 3 cm of it was removed down to what appeared to be normal noninflamed colon. This was done using electrocautery and the mesentery was tied off with 3-0 silk ties. The 29 EEA anvil was inserted in the distal end of the transverse colon and a 2-0 Prolene was used to make a pursestring. We then took down any of the attachments of the transverse and right colon to allow this to be able to be rotated around to where the colon would lie in a more anatomical position. With the length of the remaining rectum and distal sigmoid colon along with this OPERATIVE REPORT [id number] BIENVENIDO ROGERS rotation of the bowel, we were able to lie it in a normal anatomic position in the left lateral gutter. An end-to-end anastomosis was performed through the rectum using the 29 EEA stapler. We then oversewed the staple line using a Lemberted 3-0 silks. With placement of the anal dilators, there was a small tear of the mid rectum where there was an area of stenosis. This was repaired with a layer of running 3-0 Vicryl, followed by multiple interrupted 3-0 silks. At this point, the abdomen was irrigated out thoroughly with normal saline. There was no sign of any ischemic changes throughout the abdomen and no sign of any enteric leaks. We then closed the posterior aspect of the colostomy with running 0 Prolene. The midline fascia was then closed with a running #1 loop PDS times 2. We then closed the anterior aspect of the colostomy site fascia using a running 0 Prolene. The midline incision was closed with jad and the ostomy site skin was closed in a pursestring fashion using a 2-0 Vicryl. We then dressed the wounds appropriately. COMPLICATIONS: None. CONDITION: Stable. ANESTHESIA: General endotracheal and epidural. BLOOD LOSS: 100 mL. TRANSINT:[id number] Voice Confirmation ID: [id number] DOCUMENT ID: [id number] LIBORIO HUGHES MD at 1714 CC: RICARDO LAWRENCE MD and VALDO PALACIO MD [id number] DICTATION DATE: 05/10/18 1140 AMUSEMENT CENTRE MANAGER: 05/10/18 1212 DIS IN 05/16/18 [facility] [address] [facility] [address]
[~2018-05-10 05:45] MED LIST changes: +CHRONULAC30 ML PO; +LUNESTA2 M1 PO
[2018-05-10] MEDS ORDERED: REMERON30 MG PO (06:18)
[2018-05-10 06:24] VITALS: BMI 22.0
[2018-05-10 14:29] VITALS: BP 114/77
[2018-05-10 14:32] VITALS: BP 114/77; BMI 22.0
[2018-05-10 15:53] VITALS: BP 112/68
[2018-05-10 20:00] VITALS: BP 114/59
[2018-05-11 04:11] VITALS: BP 103/60
[2018-05-11 06:35] LABS: BASOPHILS 0 % (0-2); EOSINOPHILS 0 % (0-7); HEMATOCRIT 38.8 % (36.0-48.0); HEMOGLOBIN 12.8 g/dL (12-16); IMMATURE GRANULOCYTES 0.2 % (0-5); LYMPHOCYTES 6.8 % (15-50); MEAN PLATELET VOLUME 9.7 fL (7.4-10.4); MONOCYTES 6.7 % (2-11); NEUTROPHILS 86.3 % (40-80); PLATELET COUNT 367 10x3/uL (130-400)
[2018-05-11 06:37] LABS: WBC 12.3 10x3/uL (4.8-10.8)
[2018-05-11 07:05] LABS: CALC OSMOLALITY 278 mosm/kg (275-300); CALCIUM 8.1 mg/dL (8.5-10.1); CARBON DIOXIDE 23.1 mmol/L (21.0-32.0); CHLORIDE - SERUM 105 mmol/L (98-107); CREATININE - SERUM 0.7 mg/dL (0.6-1.3); GLUCOSE 108 mg/dL (74-106); SODIUM 139 mmol/L (136-145); UREA NITROGEN 12 mg/dL (7-18); eGFR NON AFRICAN AMERICAN 89 mL/min (90-120)
[2018-05-11 08:40] VITALS: BP 125/60
[2018-05-11 11:40] VITALS: BP 109/66
[2018-05-11 13:05] VITALS: Ht 162.6 cm; Wt 58.1 kg
[2018-05-11 16:11] VITALS: BP 135/43
[2018-05-11 20:00] VITALS: BP 107/48
[2018-05-12 04:30] VITALS: BP 117/63
[2018-05-12 06:52] LABS: BASOPHILS 0 % (0-2); EOSINOPHILS 0.6 % (0-7); HEMATOCRIT 33.4 % (36.0-48.0); IMMATURE GRANULOCYTES 0.2 % (0-5); MCH 32.5 pg (26.0-34.0); MCHC 32.9 g/dL (31.0-37.0); MCV 98.8 fL (80.0-100.0); MEAN PLATELET VOLUME 9.3 fL (7.4-10.4); MONOCYTES 7.4 % (2-11); NEUTROPHILS 81.8 % (40-80); RBC 3.38 10x6/uL (4.00-5.40); WBC 11.9 10x3/uL (4.8-10.8)
[2018-05-12 06:56] LABS: PLATELET COUNT 282 10x3/uL (130-400)
[2018-05-12 07:24] LABS: CALC OSMOLALITY 271 mosm/kg (275-300); CALCIUM 8.5 mg/dL (8.5-10.1); CARBON DIOXIDE 26.7 mmol/L (21.0-32.0); CHLORIDE - SERUM 103 mmol/L (98-107); CREATININE - SERUM 0.6 mg/dL (0.6-1.3); GLUCOSE 106 mg/dL (74-106); POTASSIUM - SERUM 4.3 mmol/L (3.5-5.1); SODIUM 135 mmol/L (136-145); eGFR NON AFRICAN AMERICAN > 90 mL/min (90-120)
[2018-05-12 07:25] LABS: UREA NITROGEN 17 mg/dL (7-18)
[2018-05-12 09:58] VITALS: BP 118/64
[2018-05-12 12:44] VITALS: BP 122/55
[2018-05-12 17:43] VITALS: BP 122/75
[2018-05-12 20:00] VITALS: BP 117/66
[2018-05-13 04:06] VITALS: BP 131/72
[2018-05-13 06:07] LABS: CALC OSMOLALITY 271 mosm/kg (275-300); CALCIUM 8.4 mg/dL (8.5-10.1); CARBON DIOXIDE 27.3 mmol/L (21.0-32.0); CHLORIDE - SERUM 104 mmol/L (98-107); CREATININE - SERUM 0.5 mg/dL (0.6-1.3); GLUCOSE 94 mg/dL (74-106); POTASSIUM - SERUM 4.5 mmol/L (3.5-5.1); SODIUM 136 mmol/L (136-145); UREA NITROGEN 13 mg/dL (7-18); eGFR NON AFRICAN AMERICAN > 90 mL/min (90-120)
[2018-05-13 06:39] LABS: BASOPHILS 0.1 % (0-2); EOSINOPHILS 2.4 % (0-7); HEMATOCRIT 31.4 % (36.0-48.0); HEMOGLOBIN 10.2 g/dL (12-16); IMMATURE GRANULOCYTES 0.3 % (0-5); LYMPHOCYTES 15.1 % (15-50); MCH 31.7 pg (26.0-34.0); MCHC 32.5 g/dL (31.0-37.0); MCV 97.5 fL (80.0-100.0); MEAN PLATELET VOLUME 10.5 fL (7.4-10.4); MONOCYTES 7.3 % (2-11); NEUTROPHILS 74.8 % (40-80); RBC 3.22 10x6/uL (4.00-5.40); RDW 13.9 % (11.5-14.5)
[2018-05-13 06:40] LABS: PLATELET COUNT 193 10x3/uL (130-400); WBC 7.9 10x3/uL (4.8-10.8)
[2018-05-13 08:22] VITALS: BP 121/73
[2018-05-13 12:42] VITALS: BP 140/76
[2018-05-13 16:19] VITALS: BP 140/73
[2018-05-13 22:28] VITALS: BP 134/67
[2018-05-14 04:46] LABS: BASOPHILS 0.1 % (0-2); EOSINOPHILS 1.6 % (0-7); HEMATOCRIT 30.2 % (36.0-48.0); IMMATURE GRANULOCYTES 0.1 % (0-5); LYMPHOCYTES 11.3 % (15-50); MCH 31.5 pg (26.0-34.0); MCHC 33.1 g/dL (31.0-37.0); MEAN PLATELET VOLUME 9.1 fL (7.4-10.4); MONOCYTES 7.3 % (2-11); NEUTROPHILS 79.6 % (40-80); RBC 3.17 10x6/uL (4.00-5.40); RDW 13.5 % (11.5-14.5); WBC 9.4 10x3/uL (4.8-10.8)
[2018-05-14 04:56] LABS: MCV 95.3 fL (80.0-100.0); PLATELET COUNT 293 10x3/uL (130-400)
[2018-05-14 04:59] VITALS: BP 130/67
[2018-05-14 05:02] LABS: CALC OSMOLALITY 269 mosm/kg (275-300); CALCIUM 8.4 mg/dL (8.5-10.1); CARBON DIOXIDE 28.4 mmol/L (21.0-32.0); CHLORIDE - SERUM 101 mmol/L (98-107); CREATININE - SERUM 0.5 mg/dL (0.6-1.3); GLUCOSE 106 mg/dL (74-106); SODIUM 135 mmol/L (136-145); UREA NITROGEN 12 mg/dL (7-18); eGFR NON AFRICAN AMERICAN > 90 mL/min (90-120)
[2018-05-14 06:58] VITALS: BP 130/67
[2018-05-14 16:14] VITALS: BP 113/71
[2018-05-14 20:00] VITALS: BP 134/77
[2018-05-15 04:00] VITALS: BP 158/83
[2018-05-15 05:50] LABS: BASOPHILS 0.1 % (0-2); EOSINOPHILS 1.3 % (0-7); HEMATOCRIT 31.4 % (36.0-48.0); HEMOGLOBIN 10.3 g/dL (12-16); IMMATURE GRANULOCYTES 0.4 % (0-5); LYMPHOCYTES 12.3 % (15-50); MCH 31.3 pg (26.0-34.0); MCHC 32.8 g/dL (31.0-37.0); MCV 95.4 fL (80.0-100.0); MEAN PLATELET VOLUME 8.9 fL (7.4-10.4); MONOCYTES 9.5 % (2-11); NEUTROPHILS 76.4 % (40-80); PLATELET COUNT 314 10x3/uL (130-400); RBC 3.29 10x6/uL (4.00-5.40); RDW 13.7 % (11.5-14.5); WBC 11.2 10x3/uL (4.8-10.8)
[2018-05-15 06:16] LABS: CALC OSMOLALITY 268 mosm/kg (275-300); CALCIUM 8.2 mg/dL (8.5-10.1); CARBON DIOXIDE 27.8 mmol/L (21.0-32.0); CHLORIDE - SERUM 100 mmol/L (98-107); CREATININE - SERUM 0.4 mg/dL (0.6-1.3); GLUCOSE 114 mg/dL (74-106); POTASSIUM - SERUM 4.1 mmol/L (3.5-5.1); SODIUM 134 mmol/L (136-145); UREA NITROGEN 12 mg/dL (7-18); eGFR NON AFRICAN AMERICAN > 90 mL/min (90-120)
[2018-05-15 20:23] VITALS: BP 122/67
[2018-05-16 04:00] VITALS: BP 142/78
[2018-05-16 08:05] VITALS: BP 135/70
[2018-05-16 08:06] LABS: BASOPHILS 0.1 % (0-2); EOSINOPHILS 2.5 % (0-7); HEMATOCRIT 33.2 % (36.0-48.0); HEMOGLOBIN 10.9 g/dL (12-16); IMMATURE GRANULOCYTES 0.3 % (0-5); LYMPHOCYTES 13.9 % (15-50); MCH 31.9 pg (26.0-34.0); MCHC 32.8 g/dL (31.0-37.0); MCV 97.1 fL (80.0-100.0); MEAN PLATELET VOLUME 9.1 fL (7.4-10.4); MONOCYTES 8.9 % (2-11); NEUTROPHILS 74.3 % (40-80); PLATELET COUNT 356 10x3/uL (130-400); RBC 3.42 10x6/uL (4.00-5.40); WBC 11.7 10x3/uL (4.8-10.8)
[2018-05-16 08:31] LABS: CALC OSMOLALITY 271 mosm/kg (275-300); CALCIUM 8.8 mg/dL (8.5-10.1); CARBON DIOXIDE 28.1 mmol/L (21.0-32.0); CHLORIDE - SERUM 100 mmol/L (98-107); CREATININE - SERUM 0.6 mg/dL (0.6-1.3); GLUCOSE 110 mg/dL (74-106); POTASSIUM - SERUM 3.6 mmol/L (3.5-5.1); SODIUM 136 mmol/L (136-145); UREA NITROGEN 11 mg/dL (7-18); eGFR NON AFRICAN AMERICAN > 90 mL/min (90-120)
[2018-05-16] MEDS ORDERED: NORCO-10 PO (09:11)
[2018-05-16] MEDS ORDERED: DIFLUCAN150 MG PO (09:47)
== END 2018-05-16 13:14 | disposition home or self-care (01) | DRG 331 ==
LOC: D.OPS 05:45 → D.PAN 07:30 → D.OPS 08:00 → D.MS 14:28 → D.OPS 14:29 → D.MS 05-16 13:14
PROVIDERS: Surgery
PROC: 0DBN0ZZ Excision of Sigmoid Colon, Open Approach (ICD-10-PCS; principal; 2018-05-10 08:00)
PROC: 0DQ80ZZ Repair Small Intestine, Open Approach (ICD-10-PCS; 2018-05-10 08:00)
DX: Z43.3 Encounter for attention to colostomy (principal); G20 Parkinson's disease; K66.0 Peritoneal adhesions (postprocedural) (postinfection)

== ENCOUNTER → 2018-05-20 11:27 | Outpatient (CLI) | payer OTHER, MEDICARE ==
[2018-05-11 13:05] VITALS: BMI 21.9
[~2018-05-20 11:27] MED LIST changes: +DIFLUCAN150 MG PO; +NORCO-10 PO
== END | disposition home or self-care (01) ==
LOC: D.LABREF 11:27
DX: L76.34 Postprocedural seroma of skin and subcutaneous tissue following other procedure (principal); Z43.3 Encounter for attention to colostomy

== ENCOUNTER → 2018-06-20 16:31 | Outpatient (CLI) | payer OTHER, MEDICARE ==
[2018-05-11 13:05] VITALS: BMI 21.9
== END | disposition home or self-care (01) ==
LOC: D.LABREF 16:31
DX: L02.211 Cutaneous abscess of abdominal wall (principal)

== ENCOUNTER 2018-07-14 08:38 | Emergency (ER) | payer OTHER, MEDICARE ==
[~2018-07-14] VITALS: Ht 162.6 cm; Wt 61.4 kg
[2018-07-14 08:43] VITALS: Ht 162.6 cm; Wt 61.4 kg
[2018-07-14 09:06] LABS: BASOPHILS 0.4 % (0-2); EOSINOPHILS 0.9 % (0-7); HEMATOCRIT 41.3 % (36.0-48.0); HEMOGLOBIN 13.7 g/dL (12-16); IMMATURE GRANULOCYTES 0.1 % (0-5); LYMPHOCYTES 41.8 % (15-50); MCH 31.9 pg (26.0-34.0); MCHC 33.2 g/dL (31.0-37.0); MCV 96.3 fL (80.0-100.0); MEAN PLATELET VOLUME 9.1 fL (7.4-10.4); MONOCYTES 10.6 % (2-11); NEUTROPHILS 46.2 % (40-80); PLATELET COUNT 387 10x3/uL (130-400); RBC 4.29 10x6/uL (4.00-5.40); RDW 14.5 % (11.5-14.5)
[2018-07-14 09:10] LABS: APPEARANCE HAZY (CLEAR); BILIRUBIN NEGATIVE (NEGATIVE); COLOR YELLOW (YELLOW); GLUCOSE NEGATIVE (NEGATIVE); KETONE NEGATIVE (NEGATIVE); NITRITE NEGATIVE (NEGATIVE); PROTEIN NEGATIVE (NEGATIVE); SPECIFIC GRAVITY 1.025 (1.005-1.020); WHITE CELLS - URINE 0-5 /hpf (0-5)
[2018-07-14 09:11] LABS: BACTERIA FEW /hpf (NONE SEEN); CALCIUM OXALATE CRYSTALS 0-5 /hpf (NONE SEEN); EPITHELIAL CELLS 0-5 /hpf (0-5); HYALINE CAST OCC /lpf (NONE SEEN); MUCUS >1+ /lpf (NONE SEEN); RED CELLS - URINE OCC /hpf (0-5)
[2018-07-14 09:18] LABS: ALBUMIN 3.6 g/dL (3.4-5.0); ALKALINE PHOSPHATASE 141 U/L (46-116); ALT (SGPT) 25 U/L (10-68); AMYLASE - SERUM 48 U/L (25-115); BILIRUBIN - TOTAL 0.78 mg/dL (0.2-1.3); CALC OSMOLALITY 276 mosm/kg (275-300); CALCIUM 8.9 mg/dL (8.5-10.1); CARBON DIOXIDE 27.2 mmol/L (21.0-32.0); CHLORIDE - SERUM 100 mmol/L (98-107); CREATININE - SERUM 0.7 mg/dL (0.6-1.3); GLUCOSE 135 mg/dL (74-106); LIPASE 187 U/L (73-393); POTASSIUM - SERUM 3.9 mmol/L (3.5-5.1); PROTEIN - SERUM 7.3 g/dL (6.4-8.2); SODIUM 137 mmol/L (136-145); UREA NITROGEN 16 mg/dL (7-18); eGFR NON AFRICAN AMERICAN 89 mL/min (90-120)
[2018-07-14] MEDS ORDERED: KEFLEX500 MG PO (11:29)
[2018-07-14] MEDS ORDERED: MACROBID100 MG PO (11:29)
[2018-07-14] MEDS ORDERED: FLORASTOR250 MG PO (11:29)
[2018-07-14] MEDS ORDERED: LEVSIN/ANASP0.125 MG PO (11:29)
[2018-07-14] MEDS ORDERED: ZOFRAN ODT4 MG/UDTAB PO (11:35)
[2018-07-14 11:49] VITALS: BP 118/70
== END 2018-07-14 11:50 | disposition home or self-care (01) ==
LOC: D.ER 08:38
PROVIDERS: Family Medicine
DX: R10.9 Unspecified abdominal pain (principal); N39.0 Urinary tract infection, site not specified; Z86.73 Personal history of transient ischemic attack (TIA), and cerebral infarction without residual deficits; G20 Parkinson's disease; Z85.41 Personal history of malignant neoplasm of cervix uteri

== ENCOUNTER 2018-07-16 05:07 | Inpatient (IN) | payer OTHER, MEDICARE ==
[~2018-07-16] VITALS: Ht 162.6 cm; Wt 68.6 kg
[2018-07-16] VITALS (39 sets, daily range): BP systolic 93–133; BP diastolic 45–73; BMI 21.2
--- NOTE | ~2018-07-16 | MORECARE ---
CASE MANAGEMENT DISCHARGE SUMMARY PATIENT: BIENVENIDO ROGERS UNIT: [id number] ADM DATE: 07/16/18 AGE: 63 : 51 SEX: F ROOM/BED: D.2227 AUTHOR: MELANIE,DOC PHYSICIAN: REFERRING PHYSICIAN: MILADIS BARKER MD DATE OF SERVICE: 07/27/18 Discharge Plan Patient Name: BIENVENIDO ROGERS Facility: [facility]:[place] : 1955 Planned Disposition: Home Anticipated Discharge Date: Discharge Date: 07/26/2018 Expected LOS: 0 Initial Reviewer: [email or web address] Initial Review Date: 07/25/2018 Generated: 07/27/18 1:42 pm Comments DCP- Discharge Planning Updated by [email or web address]: Margarita Mccrary on 07/25/18 12:[address] Patient Name: BIENVENIDO ROGERS Admission Status: ER Accout number: [id number] Admission Date: 07-16-2018 : 1955 Admission Diagnosis:GASTROINTESTINAL HEMORRHAGE, UNSPECIFIED Attending: MILADIS BARKER Current LOS: 9 Anticipated DC Date: Planned Disposition: Home Primary Insurance: [employer] PPO Discharge Planning Comments: CM met with patient to discuss discharge planning, she is alone in the room. She states she lives with her in a safe environment. States she uses her rolling walker to ambulate. States she has her continue to set up her medications even though [facility] is not putting them in the "hard to open bottles" any more. Declines home health or rehab. States she wants to return home with her . CM will continue to follow and assist with discharge planning/needs. Marketing Lead: Margarita Mccrary DCP- Discharge Planning Updated by [email or web address]: [place] on 07/24/18 3:[address] REHAB PRESCREENING ORDERED. GRADY NOTIFIED THIS PM. PHYSICAL THERAPY AND OCCUPATIONAL THERAPY EVALUATIONS PENDING. DCPIA - Discharge Planning Initial Assessment Updated by [email or web address]: Margarita Mccrary on 07/25/18 1:08 pm * Is the patient Alert and Oriented? Yes * How many steps to enter\\exit or inside your home? 0/0 * PCP Dr. Lemon * Pharmacy [facility] * Preadmission Environment Home with Family * ADLs Partial Dependent * Partial ADLs (Assistance needed) Ambulation * Equipment Cane Glucometer Rolling Walker Shower Chair * List name and contact numbers for known caregivers / representatives who currently or will assist patient after discharge: Arnol gotti - [phone] * Verbal permission to speak to the caregivers and representatives has been obtained from the patient. Yes * Community resources currently utilized None * Additional services required to return to the preadmission environment? No * Can the patient safely return to the preadmission environment? Yes * Has this patient been hospitalized within the prior 30 days at any hospital? No Last DP export: 07/25/18 12:12 p Patient Name: BIENVENIDO ROGERS Page [id number] at 1242 All edits/amendments must be made on the electronic document DICTATION DATE: 07/27/181241 SQL DEVELOPER DBA: LOWELL 07/27/18 1242 RPT#: [id number] DC DATE:07/26/18 STATUS: DIS IN [facility] [address] [place] [address] END OF REPORT
--- NOTE | ~2018-07-16 | HEMODYNAMI ---
PATIENT:BIENVENIDO ROGERS MEDICAL RECORD: [id number] : 51 LOCATION:[facility] D.2308 ADMISSION DATE: 07/16/18 Generatedon:07/17/201814:25 Patient name: BIENVENIDO ROGERS Patient #: [id number] SSN: DO B: 1955 Date of study: 07/17/2018 Page: Of Hemodynamic Procedure Report Patient Data Patient Demographics Procedure consent was obtained First Name: BIENVENIDO Gender: Female Last Name: SUE : 1955 Patient #: [id number] Age: 63 year(s) Race: Unknown Additional ID: [id number] Contact details Address: [address] [place] [address] State: [place] City: [facility] Zip code: [address] Past Medical History Allergies Allergen Reaction Date Comments Reported Sulfa drugs 12/16/2017 Sulfa drugs 12/17/2017 Admission Admission Data Admission Date: 07/16/2018 Admission Time: 6:40 Room #: D2308 Procedure Procedure Types Cath Procedure Peripheral Cath Diagnostic Procedure Abd/Extremity Visceral/Mesenteric Mesenteric Arteriogram (Abd Artery) Procedure Description Procedure Date Procedure Date: 07/17/2018 Procedure Start Time: 13:01 Procedure Staff Name Function Keshawn Albrecht MD Performing Physician Anselmo Adams RT Monitor Krystle Berger Scrub Snehal Chacko RN Nurse Procedure Data Cath Procedure Fluoroscopy Diagnostic fluoroscopy Total fluoroscopy Time: time: 19.3 min 19.3 min Diagnostic fluoroscopy Total fluoroscopy dose: dose: 1429 mGy 1429 mGy Entry Location Entry Primary Successful Side Size Upsize Upsize Entry Closure Succes sful Closure Location (Fr) 1 (Fr) 2 (Fr) Remarks Device Remarks Femoral Right 5 Fr Exoseal artery Diagnostic catheters Device Type Used For End Catheter Placement Angiodynamics SOS OMNI 2 NON B 5FR 65CM catheter ([id number]) Procedure Medications Medication Administration Route Dosage Heparin Flush Bag added to field 3 bags (1000units/500ml NS) Lidocaine 1% added to field 20 Fentanyl I.V. 25 mcg Hemodynamics Rest Heart Rate: 158 (bpm) Pressure Samples Time Site Value (mmHg) Purpose Heart Use Rate(bpm) 13:14 AO 85/66(74) Snapshot 139 14:02 AO 120/69(84) Snapshot 140 Snapshots Pre Cath Intra NCS Post Cath Vital Signs Time Heart Resp SPO2 etCO2 NIBP (mmHg) Rhythm Pain Sedation Rate (ipm) (%) (mmHg) Status Level (bpm) 12:57:19 144 22 91 0 Measuring NSR 0 (11) 10(A) , No pain 12:58:41 131 22 0 Time NSR 0 (11) 10(A) Exceeded , No pain 13:03:40 106 22 0 Measuring NSR 0 (11) 10(A) , No pain 13:03:42 130 22 0 Time NSR 0 (11) 10(A) Exceeded , No pain 13:08:41 118 22 0 Measuring NSR 0 (11) 10(A) , No pain 13:10:05 129 22 0 Time NSR 0 (11) 10(A) Exceeded , No pain 13:14:21 132 22 0 69/56(65) NSR 0 (11) 10(A) , No pain 13:18:19 123 22 0 69/52(57) NSR 0 (11) 10(A) , No pain 13:23:18 123 23 0 Measuring NSR 0 (11) 10(A) , No pain 13:23:55 126 22 0 87/73(83) NSR 0 (11) 10(A) , No pain 13:28:54 119 22 0 Measuring NSR 0 (11) 10(A) , No pain 13:29:37 123 23 0 120/105(117) NSR 0 (11) 10(A) , No pain 13:33:34 122 20 0 110/97(106) NSR 0 (11) 10(A) , No pain 13:38:33 111 23 0 Measuring NSR 0 (11) 10(A) , No pain 13:39:57 116 23 0 Time NSR 0 (11) 10(A) Exceeded , No pain 13:44:01 109 23 0 130/96(121) NSR 0 (11) 10(A) , No pain 13:49:00 120 22 0 Measuring NSR 0 (11) 10(A) , No pain 13:50:08 125 22 0 112/91(103) NSR 0 (11) 10(A) , No pain 13:54:20 135 23 0 114/56(76) NSR 0 (11) 10(A) , No pain 13:58:24 140 22 0 94/82(91) NSR 0 (11) 10(A) , No pain 14:03:22 123 22 0 Measuring NSR 0 (11) 10(A) , No pain 14:03:27 140 22 0 132/71(82) NSR 0 (11) 10(A) , No pain 14:08:26 140 22 0 Measuring NSR 0 (11) 10(A) , No pain 14:09:48 125 22 0 Time NSR 0 (11) 10(A) Exceeded , No pain 14:14:47 110 23 0 Measuring NSR 0 (11) 10(A) , No pain 14:15:34 110 23 0 110/94(107) NSR 0 (11) 10(A) , No pain 14:19:29 123 22 0 118/107(115) NSR 0 (11) 10(A) , No pain 14:23:29 85 0 No Cuff NSR 0 (11) 10(A) , No pain Medications Time Medication Route Dose Verified Delivered Reason Notes Effec tiveness by by 12:55:38 Heparin Flush added 3 Keshawn Liao used for Bag to bags Trena Albrecht procedure (1000units/500ml field MD AMOS NS) 12:55:49 Lidocaine 1% added 20ml Keshawn Liao used for to vial Trena Albrecht procedure field MD AMOS 13:39:17 Fentanyl I.V. 25 Keshawn Fernandezody for back [facility] [place]rena Chacko RN pain MD Procedure Log Time Note 12:38:41 Anselmo Adams RT (R) (CV) sent for patient. Start room use. 12:38:52 Time tracking: Call back (After hours or weekends) 12:38:58 Plan of Care:Hemodynamics will remain stable., Cardiac rhythm will remain stable., Comfort level will be maintained., Respiratory function will remain adequate., Patient/ family verbilizes understanding of procedure., Procedure tolerated without complication., Recovers from procedure without complications.. 12:39:00 Patient arrives emergently. 12:39:01 pulses not checked to urgency of procedure needing to be started 12:39:07 Patient received from ICU to IR On ventilator. Tansferred to table in Supine position. 12:39:20 Use device set IR Diagnostic 12:39:21 ACIST Syringe (15168) opened to sterile field. 12:39:21 ACIST Hand Control (56279) opened to sterile field. 12:39:21 ACIST Manifold (05108) opened to sterile field. 12:39:22 Bag Decanter (2002S) opened to sterile field. 12:39:22 Sterile Angiographic Pack opened to sterile field. 12:39:22 Tegaderm 4 x 4 (1626W) opened to sterile field. 12:39:26 Correct patient and procedure confirmed by team. 12:39:31 Signed procedure consent form obtained from spouse. 12:39:33 ECG and BP/O2 sat monitors applied to patient. 12:39:34 Full Disclosure recording started 12:39:34 - 12:39:38 H&P Date Dictated: 07/17/2018 Within 30 days and on chart.. 12:39:46 Unable to provide pre-op teaching due to educational barrier. pt on ibeth t 12:39:49 Family in waiting room. 12:43:31 unable to ask questions due to pt on vent 12:43:47 IV patent on arrival in left forearm with 0.9% NaCl at O. 12:44:05 multiple drips are noted infusing 12:52:41 12:55:29 Vital chart was started 12:55:30 Baseline sample Acquired. 12:55:38 Heparin Flush Bag (1000units/500ml NS) 3 bags added to field was administered by Keshawn Albrecht MD; used for procedure; 12:55:49 Lidocaine 1% 20ml vial added to field was administered by Keshawn boone MD; used for procedure; 13:00:00 Procedure started. 13:00:29 Right groin area was prepped with chlora-prep and draped in sterile fashion 13:00:30 Alarms reviewed by R. N. 13:00:31 Sharps counted by scrub and verified by R.N. 13:00:34 Physician arrived 13:00:35 --------ALL STOP TIME OUT------ 13:00:36 Final Timeout: patient, procedure, and site verified with staff and physician. All members of the team are in agreement. 13:00:38 Right groin site verified by team. 13:00:44 Sedation plan: IV Moderate Sedation Medication:Versed, Fentanyl 13:01:14 Local anesthetic to right femoral artery with Lidocaine 1% by Keshawn Albrecht MD.INITIAL ACCESS ONLY 13:01:18 Access obtained with 4Fr micropunture. 13:01:28 A 5 Fr sheath was inserted into the Right Femoral artery 13:01:42 Micropuncture VSI 4FR kit opened to sterile field. 13:01:42 SHEATH 5FR Gordo (QFD306) opened to sterile field. 13:01:43 COPILOT Valve Control (4815078) opened to sterile field. 13:01:43 TUBING Contrast Injection High Pressure (OPF683U) opened to sterile field. 13:01:46 A AngiodynamAMS-Qi SOS OMNI 2 NON B 5FR 65CM catheter (26009584) was advanced over the wire and used for . 13:01:47 TRANSEND STEERABLE wire ([id number]) opened to sterile field. 13:01:47 TUBING High Pressure Extension Tubing (Tellez) (EC6087U) opened to sterile field. 13:13:54 Zero performed for pressure channel P1 13:22:16 GLIDE WIRE ANGLE 180cm (PW1022) opened to sterile field. 13:22:27 TORQUE DEVICE PLASTIC .038 ( TD01) opened to sterile field. 13:32:18 RENEGADE HI-EUGENIE microcatheter ([id number]) opened to sterile field. 13:39:02 GLIDE WIRE GT DOUBLE ANGLE .018 (RG*EB0122HK) opened to sterile field. 13:39:17 Fentanyl 25 mcg I.V. was administered by Snehal Chacko RN; for back pain; 13:43:35 COIL HILAL 2.0-2 (J72497) opened to sterile field. 13:45:57 COIL HILAL 2.0-2 (O33838) opened to sterile field. 13:50:23 COIL Vortex Anjali 18 3X3 ([id number]) opened to sterile field. 13:51:27 COIL Positioning Wire ([id number]) opened to sterile field. 14:03:31 EXOSEAL 5Fr (EX500) opened to sterile field. 14:03:42 Sheath removed intact; hemostasis achieved with Exoseal to the Right Femoral artery. 14:04:03 Procedure ended.(Physican Out) 14:05:57 Fluoroscopy time 19.30 minutes. 14:06:03 Fluoroscopy dose: 1429 mGy 14:06:03 Flurop Dose total: 1429 14:06:06 Sharps counted by scrub and verified by R.N. 14:06:09 Insertion/operative site no bleeding no hematoma. 14:06:13 Post-op/insertion site Right Femoral artery dressed using a 4 x 4 and Tegaderm. 14:06:16 Post right femoral artery:stable 14:08:53 pulses where not able to be checked at beginnig of case to to ergency o f procedure 14:10:09 unable to give verbal instructions to pt. pt on vent 14:25:07 Report given to ICU. 14:25:11 Patient transfered to ICU with Bed. 14:25:39 Vital chart was stopped Device Usage Item Name Manufacture Quantity Catalog Hospital Part Current Mini mal Lot# / Number Charge Number Stock Stock Serial# Code ACIST Syringe Acist Medical 1 92547 090749 952723 177964 20 (11009) Systems Inc ACIST Hand Acist Medical 1 78801 787755 506402 737752 5 Control Systems Inc (76185) ACIST Acist Medical 1 47662 774792 215023 524921 5 Manifold Systems Inc (79245) Bag Decanter Microtek 1 2001S 591926 28382 534727 5 (2001S) Medical Inc. Sterile Cardinal 1 [id number] 808369 224450 5 Angiographic Health Pack Tegaderm 4 x 3M 1 1626W 571939 601486 245504 5 4 (1626W) Micropuncture VSI VASCULAR 1 7266V 205441 940442 5 VSI 4FR kit SOLUTIONS SHEATH 5FR Terumo 1 AEX438 057576 702637 280657 40 Gordo (RLA120) COPILOT Valve Hou 1 7130956 868157 085940 916698 5 Control Vascular (7958661) TUBING [facility] 1 [id number] 542004 021960 137595 5 Contrast Injection High Pressure (WHM282P) Angiodynamics Angiodynamics 1 83066888 680856 81641 732253 5 SOS OMNI 2 NON B 5FR 65CM catheter (82351068) TRANSEND [place] 1 [id number] 187393 566436 5 14068584 STEERABLE Scientific wire ([id number]) TUBING High [facility] 1 [id number] 015415 38185 712645 10 Pressure Extension Tubing (Tellez) (WO1910F) GLIDE WIRE Terumo 1 GZ2479 594014 807123 476448 5 ANGLE 180cm (QK3985) TORQUE DEVICE [place] 1 TD01 458253 563384 144180 5 PLASTIC .038 Scientific ( TD01) RENEGADE [place] 1 [id number] 739852 370415 5 73823059 HI-EUGENIE Scientific microcatheter ([id number]) GLIDE WIRE GT Terumo 1 RG*[id number] 352470 213231 5 842342 DOUBLE ANGLE .018 (RG*MP8940DP) COIL HILAL [facility] 2 C78243 255441 507989 5 9078057 2.0-2 0622118 (G21612) COIL Vortex [facility] 1 [id number] 995105 543999 5 38035884 Anjali 18 3X3 ([id number]) COIL [place] 1 [id number] 986417 456033 736292 5 [id number] Positioning Scientific Wire ([id number]) EXOSEAL 5Fr Cardinal 1 EX500 121886 656868 025553 10 71788328 (EX500) Health Signature Audit [place] Stage Time Signature Unsigned Intra-Procedure 07/17/2018 Anselmo 2:25:36 PM [place] RT (R) (CV) Signatures Monitor : Anselmo Signature : [place] RT Date : Time : [facility] [address] [place] [address]
--- NOTE | ~2018-07-16 | EC ---
PATIENT:BIENVENIDO ROGERS DATE OF SERVICE: 07/16/18 SEX: F MEDICAL RECORD: [id number] DATE OF : [birth year] LOCATION:[facility] D230 AGE OF PATIENT: 63 ADMISSION DATE: 07/16/18 REFERRING PHYSICIAN: INTERPRETING PHYSICIAN: KALEB PARISI MD ECHOCARDIOGRAM REPORT ECHO CHARGES 4 ECHO COMPLETE Date: 07/18/18 CLINICAL DIAGNOSIS: BRADYCARDIA/ELEVATED TROPONIN ECHOCARDIOGRAPHIC MEASUREMENTS (adult normal given) AC root (d.<3.7cm) 3.0 cm LV Septum d (<1.2 cm> 1.4 cm Valve Excursion 1.8 cm LV Septum (systole) 1.9 cm Left Atria (s.<4.0cm> 3.8 cm LVPW d(<1.2cm) 1.2 cm RV (d.<2.3cm) 2.8 cm LVPW (sytole) 1.5 cm LV diastole(<5.6CM) 2.6 cm MV E-F(>70mm/sec) cm LV systole 1.4 cm LVOT Diameter 1.8 cm MV exc.(>10mm) cm Est.ejection fraction (50-75%) % DOPPLER: LVIT cm/sec A 71.0 cm/sec E 44.0 cm/sec LA cm/sec RVSP mmHg LVOT 92.0 cm/sec AOP1/2T m/s Asc. Ao 120 cm/sec RVOT 59.0 cm/sec RA cm/sec PA 104 cm/sec AV Gradient Peak 5.7 mmHg AV Mean 2.5 mmHg AV Area 1.9 cm MV Gradient Peak 2.0 mmHg MV Mean 0.46 mmHg MV Area cm COMMENTS: [place]: Kim ASCENCIO Senior Program Manager: 1 Dr. Parisi TAPE# PACS Pericardial Effusion N DATE OF SERVICE: 07/18/2018 PROCEDURE: Echocardiogram. FINDINGS: 1. Left ventricular chamber size is within normal limits. Left ventricular systolic function is mildly reduced, overall ejection fraction estimated at 40%. 2. Left atrium, right atrium, and right ventricular chamber sizes are within normal limits. 3. Valvular structures have risen echogenic structure on the aortic valve is ECHOCARDIOGRAM REPORT [id number] BIENVENIDO ROGERS technically a difficult study and the visualization is poor, but cannot rule out endocarditis of the aortic valve. The remaining valvular structures have normal structure and motion. 4. Doppler interrogation reveals no significant valvular insufficiency or stenosis. 5. No evidence of pericardial effusion or left ventricular thrombus. OVERALL IMPRESSION: Possible endocarditis of the aortic valve, technically difficult study with poor visualization of the valve details. I would suggest transesophageal echo with endocarditis is being considered. TRANSINT:[id number] Voice Confirmation ID: [id number] DOCUMENT ID: [id number] KALEB PARISI MD at 1704 CC: [id number] DICTATION DATE: 07/19/18 1134 PLATE SLITTER AND INSPECTOR: 07/19/18 1144 ADM IN [facility] [address] [place] [id number]
--- NOTE | ~2018-07-16 | MORECARE ---
CASE MANAGEMENT DISCHARGE SUMMARY PATIENT: BIENVENIDO ROGERS UNIT: [id number] ADM DATE: 07/16/18 AGE: 63 : [birth year] SEX: F ROOM/BED: D.2227 AUTHOR: MELANIE,DOC PHYSICIAN: REFERRING PHYSICIAN: MILADIS BARKER MD DATE OF SERVICE: 07/25/18 Discharge Plan Patient Name: BIENVENIDO ROGERS Facility: [facility]:[place] : 1955 Planned Disposition: Home Anticipated Discharge Date: Discharge Date: Expected LOS: Initial Reviewer: [email or web address] Initial Review Date: 07/25/2018 Generated: 07/25/18 2:12 pm Comments DCP- Discharge Planning Updated by [email or web address]: Margarita Mccrary on 07/25/18 12:[address] Patient Name: BIENVENIDO ROGERS Admission Status: ER Accout number: [id number] Admission Date: 07-16-2018 : 1955 Admission Diagnosis:GASTROINTESTINAL HEMORRHAGE, UNSPECIFIED Attending: MILADIS BARKER Current LOS: 9 Anticipated DC Date: Planned Disposition: Home Primary Insurance: [employer] PPO Discharge Planning Comments: CM met with patient to discuss discharge planning, she is alone in the room. She states she lives with her in a safe environment. States she uses her rolling walker to ambulate. States she has her continue to set up her medications even though [facility] is not [facility] them [facility] the "hard to open bottles" any more. Declines home health or rehab. States she wants to return home with her . CM will continue to follow and assist with discharge planning/needs. Cyber Security Consultant: Margarita Mccrary DCP- Discharge Planning Updated by [email or web address]: [place] on 07/24/18 3:[address] REHAB PRESCREENING ORDERED. GRADY NOTIFIED THIS PM. PHYSICAL THERAPY AND OCCUPATIONAL THERAPY EVALUATIONS PENDING. DCPIA - Discharge Planning Initial Assessment Updated by [email or web address]: Margarita Mccrary on 07/25/18 1:08 pm * Is the patient Alert and Oriented? Yes * How many steps to enter\\exit or inside your home? 0/0 * PCP Dr. Lemon * Pharmacy [facility] * Preadmission Environment Home with Family * ADLs Partial Dependent * Partial ADLs (Assistance needed) Ambulation * Equipment Cane Glucometer Rolling Walker Shower Chair * List name and contact numbers for known caregivers / representatives who currently or will assist patient after discharge: Arnol gotti - [phone] * Verbal permission to speak to the caregivers and representatives has been obtained from the patient. Yes * Community resources currently utilized None * Additional services required to return to the preadmission environment? No * Can the patient safely return to the preadmission environment? Yes * Has this patient been hospitalized within the prior 30 days at any hospital? No Patient Name: BIENVENIDO RGOERS Page [id number] at 1312 All edits/amendments must be made on the electronic document DICTATION DATE: 07/25/18 131 W[place] FLORIST: LOWELL 07/25/18 1312 RPT#: [id number] DC DATE: STATUS: ADM IN [facility] [address] [place] [address] END OF REPORT
[~2018-07-16 05:07] MED LIST changes: +FLORASTOR250 MG PO; +KEFLEX500 MG PO; +LEVSIN/ANASP0.125 MG PO; +MACROBID100 MG PO; +ZOFRAN ODT4 MG/UDTAB PO
[2018-07-16 05:20] LABS: BASOPHILS 0.3 % (0-2); HEMATOCRIT 33.5 % (36.0-48.0); IMMATURE GRANULOCYTES 0.1 % (0-5); LYMPHOCYTES 41.9 % (15-50); MCH 31.8 pg (26.0-34.0); MCHC 32.2 g/dL (31.0-37.0); MEAN PLATELET VOLUME 9.2 fL (7.4-10.4); MONOCYTES 6.4 % (2-11); NEUTROPHILS 50.3 % (40-80); PLATELET COUNT 395 10x3/uL (130-400); RDW 14.6 % (11.5-14.5)
[2018-07-16 05:22] LABS: HEMOGLOBIN 10.8 g/dL (12-16); MCV 98.5 fL (80.0-100.0); WBC 10.8 10x3/uL (4.8-10.8)
[2018-07-16 05:35] LABS: ALBUMIN 2.7 g/dL (3.4-5.0); ALKALINE PHOSPHATASE 109 U/L (46-116); ALT (SGPT) 25 U/L (10-68); BILIRUBIN - TOTAL 0.37 mg/dL (0.2-1.3); CALC OSMOLALITY 286 mosm/kg (275-300); CALCIUM 8.4 mg/dL (8.5-10.1); CARBON DIOXIDE 24.8 mmol/L (21.0-32.0); CHLORIDE - SERUM 107 mmol/L (98-107); CREATININE - SERUM 0.9 mg/dL (0.6-1.3); GLUCOSE 182 mg/dL (74-106); PROTEIN - SERUM 5.7 g/dL (6.4-8.2); SODIUM 142 mmol/L (136-145); UREA NITROGEN 9 mg/dL (7-18); eGFR NON AFRICAN AMERICAN 67 mL/min (90-120)
[2018-07-16 05:38] LABS: LIPASE 222 U/L (73-393)
[2018-07-16 05:46] LABS: AMYLASE - SERUM 35 U/L (25-115); TROPONIN-I < 0.017 ng/mL (0.000-0.060)
[2018-07-16 10:37] LABS: BASOPHILS 0.4 % (0-2); EOSINOPHILS 0 % (0-7); HEMATOCRIT 27.3 % (36.0-48.0); IMMATURE GRANULOCYTES 0.1 % (0-5); LYMPHOCYTES 22.4 % (15-50); MCH 32.3 pg (26.0-34.0); MCV 97.8 fL (80.0-100.0); MONOCYTES 8.9 % (2-11); NEUTROPHILS 68.2 % (40-80); PLATELET COUNT 358 10x3/uL (130-400); RBC 2.79 10x6/uL (4.00-5.40); RDW 14.5 % (11.5-14.5); WBC 8.3 10x3/uL (4.8-10.8)
[2018-07-16 10:51] LABS: APTT 27.7 SECONDS (22.8-39.4); INR 1.06 (0.85-1.17); PROTIME 13.3 SECONDS (11.6-15.0)
[2018-07-16 16:31] LABS: APPEARANCE HAZY (CLEAR); BILIRUBIN NEGATIVE (NEGATIVE); COLOR YELLOW (YELLOW); GLUCOSE NEGATIVE (NEGATIVE); KETONE NEGATIVE (NEGATIVE); NITRITE NEGATIVE (NEGATIVE); PROTEIN NEGATIVE (NEGATIVE); UROBILINOGEN NORMAL (NORMAL)
[2018-07-16 16:32] LABS: EPITHELIAL CELLS 0-5 /hpf (0-5); RED CELLS - URINE OCC /hpf (0-5)
[2018-07-16 18:52] LABS: BASOPHILS 0.2 % (0-2); EOSINOPHILS 0.1 % (0-7); IMMATURE GRANULOCYTES 0.1 % (0-5); LYMPHOCYTES 16.5 % (15-50); MCH 31.3 pg (26.0-34.0); MCHC 33.1 g/dL (31.0-37.0); MEAN PLATELET VOLUME 8.9 fL (7.4-10.4); MONOCYTES 11.2 % (2-11); NEUTROPHILS 71.9 % (40-80); RDW 16.5 % (11.5-14.5)
[2018-07-16 18:56] LABS: HEMATOCRIT 33.2 % (36.0-48.0); MCV 94.3 fL (80.0-100.0); PLATELET COUNT 230 10x3/uL (130-400); RBC 3.52 10x6/uL (4.00-5.40); WBC 11.4 10x3/uL (4.8-10.8)
[2018-07-16 23:00] LABS: BASOPHILS 0.3 % (0-2); EOSINOPHILS 0.2 % (0-7); HEMATOCRIT 30.6 % (36.0-48.0); HEMOGLOBIN 10.2 g/dL (12-16); IMMATURE GRANULOCYTES 0.1 % (0-5); LYMPHOCYTES 27.6 % (15-50); MCH 30.8 pg (26.0-34.0); MCHC 33.3 g/dL (31.0-37.0); MCV 92.4 fL (80.0-100.0); MONOCYTES 11.6 % (2-11); NEUTROPHILS 60.2 % (40-80); PLATELET COUNT 232 10x3/uL (130-400); RBC 3.31 10x6/uL (4.00-5.40); RDW 16.5 % (11.5-14.5); WBC 9.3 10x3/uL (4.8-10.8)
[2018-07-17] VITALS (73 sets, daily range): BP systolic 62–176; BP diastolic 34–102
[2018-07-17 02:01] LABS: BASOPHILS 0.3 % (0-2); EOSINOPHILS 0.8 % (0-7); HEMATOCRIT 27.2 % (36.0-48.0); HEMOGLOBIN 8.9 g/dL (12-16); IMMATURE GRANULOCYTES 0.2 % (0-5); LYMPHOCYTES 58.7 % (15-50); MCH 30.6 pg (26.0-34.0); MCHC 32.7 g/dL (31.0-37.0); MCV 93.5 fL (80.0-100.0); MEAN PLATELET VOLUME 9.1 fL (7.4-10.4); MONOCYTES 6.8 % (2-11); NEUTROPHILS 33.2 % (40-80); PLATELET COUNT 278 10x3/uL (130-400); RBC 2.91 10x6/uL (4.00-5.40); RDW 16.9 % (11.5-14.5); WBC 11.8 10x3/uL (4.8-10.8)
[2018-07-17 02:15] LABS: ALKALINE PHOSPHATASE 72 U/L (46-116); BILIRUBIN - TOTAL 0.41 mg/dL (0.2-1.3); CALCIUM 7.5 mg/dL (8.5-10.1); CARBON DIOXIDE 25.7 mmol/L (21.0-32.0); CHLORIDE - SERUM 110 mmol/L (98-107); CREATININE - SERUM 0.8 mg/dL (0.6-1.3); GLUCOSE 204 mg/dL (74-106); POTASSIUM - SERUM 3.5 mmol/L (3.5-5.1); PROTEIN - SERUM 4.3 g/dL (6.4-8.2); SODIUM 144 mmol/L (136-145); eGFR NON AFRICAN AMERICAN 76 mL/min (90-120)
[2018-07-17 02:16] LABS: ALT (SGPT) 17 U/L (10-68); CALC OSMOLALITY 299 mosm/kg (275-300); UREA NITROGEN 32 mg/dL (7-18)
[2018-07-17 02:28] LABS: CKMB 0.4 U/L (0.0-3.6); CREATINE KINASE 37 UL (21-215)
[2018-07-17 02:29] LABS: TROPONIN-I 0.016 ng/mL (0.000-0.060)
[2018-07-17 09:13] LABS: CKMB 0.5 U/L (0.0-3.6); CREATINE KINASE 21 UL (21-215); TROPONIN-I 0.018 ng/mL (0.000-0.060)
[2018-07-17 10:01] LABS: HEMATOCRIT 20.2 % (36.0-48.0)
[2018-07-17 10:17] LABS: HEMOGLOBIN 6.7 g/dL (12-16)
[2018-07-17 11:29] LABS: ANION GAP 12.9 mmol/L (8-16); CARBON DIOXIDE 22.8 mmol/L (21.0-32.0); POTASSIUM - SERUM 3.7 mmol/L (3.5-5.1)
[2018-07-17 11:46] LABS: MCH 30.1 pg (26.0-34.0); MCHC 33.4 g/dL (31.0-37.0); MEAN PLATELET VOLUME 9.2 fL (7.4-10.4); RBC 3.39 10x6/uL (4.00-5.40); RDW 14.2 % (11.5-14.5); WBC 10.7 10x3/uL (4.8-10.8)
[2018-07-17 11:48] LABS: HEMATOCRIT 30.5 % (36.0-48.0); HEMOGLOBIN 10.2 g/dL (12-16); PLATELET COUNT 100 10x3/uL (130-400)
[2018-07-17 11:53] LABS: APTT 34.9 SECONDS (22.8-39.4); INR 1.88 (0.85-1.17); PROTIME 20.9 SECONDS (11.6-15.0)
[2018-07-17 12:08] LABS: LYMPHOCYTES 23 % (15-50); MONOCYTES 3 % (2-11); NEUTROPHILS 70 % (40-80); PLATELET ESTIMATE DECREASED; SMUDGE CELLS 1+
[2018-07-17 16:38] LABS: BASOPHILS 0 % (0-2); EOSINOPHILS 0 % (0-7); HEMOGLOBIN 8.4 g/dL (12-16); IMMATURE GRANULOCYTES 0.3 % (0-5); MCH 29.8 pg (26.0-34.0); MCV 85.1 fL (80.0-100.0); MEAN PLATELET VOLUME 9.5 fL (7.4-10.4); MONOCYTES 6.5 % (2-11); NEUTROPHILS 87.2 % (40-80); PLATELET COUNT 167 10x3/uL (130-400); RBC 2.82 10x6/uL (4.00-5.40); RDW 14.1 % (11.5-14.5); WBC 27.8 10x3/uL (4.8-10.8)
[2018-07-17 16:44] LABS: CKMB 0.8 U/L (0.0-3.6); CREATINE KINASE 58 UL (21-215); TROPONIN-I 0.036 ng/mL (0.000-0.060)
[2018-07-18] VITALS (85 sets, daily range): BP systolic 56–162; BP diastolic 32–98; BMI 26.1
[2018-07-18 01:23] LABS: HEMATOCRIT 19.8 % (36.0-48.0)
[2018-07-18 01:50] LABS: INR 1.22 (0.85-1.17); PROTIME 14.8 SECONDS (11.6-15.0)
[2018-07-18 05:15] LABS: BASOPHILS 0.1 % (0-2); EOSINOPHILS 0.1 % (0-7); IMMATURE GRANULOCYTES 0.2 % (0-5); LYMPHOCYTES 18.6 % (15-50); MCH 28.2 pg (26.0-34.0); MCHC 34.4 g/dL (31.0-37.0); MEAN PLATELET VOLUME 9.9 fL (7.4-10.4); MONOCYTES 9.7 % (2-11); NEUTROPHILS 71.3 % (40-80); RDW 13.8 % (11.5-14.5)
[2018-07-18 05:18] LABS: HEMATOCRIT 29.1 % (36.0-48.0); PLATELET COUNT 102 10x3/uL (130-400); RBC 3.55 10x6/uL (4.00-5.40); WBC 13.4 10x3/uL (4.8-10.8)
[2018-07-18 05:22] LABS: INR 1.17 (0.85-1.17); PROTIME 14.4 SECONDS (11.6-15.0)
[2018-07-18 05:26] LABS: APTT 24.2 SECONDS (22.8-39.4)
[2018-07-18 05:43] LABS: ALBUMIN 1.8 g/dL (3.4-5.0); ALKALINE PHOSPHATASE 49 U/L (46-116); BILIRUBIN - TOTAL 0.65 mg/dL (0.2-1.3); CALC OSMOLALITY 294 mosm/kg (275-300); CHLORIDE - SERUM 104 mmol/L (98-107); CREATININE - SERUM 0.7 mg/dL (0.6-1.3); GLUCOSE 161 mg/dL (74-106); PHOSPHOROUS 2.4 mg/dL (2.5-4.9); PROTEIN - SERUM 3.7 g/dL (6.4-8.2); SODIUM 144 mmol/L (136-145); UREA NITROGEN 26 mg/dL (7-18); eGFR NON AFRICAN AMERICAN 89 mL/min (90-120)
[2018-07-18 05:44] LABS: ALT (SGPT) 25 U/L (10-68); CALCIUM 6.4 mg/dL (8.5-10.1); CARBON DIOXIDE 34.1 mmol/L (21.0-32.0); POTASSIUM - SERUM 2.3 mmol/L (3.5-5.1); TROPONIN-I 0.331 ng/mL (0.000-0.060)
[2018-07-18 08:51] LABS: HEMATOCRIT 27.1 % (36.0-48.0); HEMOGLOBIN 9.5 g/dL (12-16)
[2018-07-18 09:09] LABS: INR 1.16 (0.85-1.17); PROTIME 14.3 SECONDS (11.6-15.0)
[2018-07-18 16:19] LABS: HEMATOCRIT 30.3 % (36.0-48.0); HEMOGLOBIN 10.7 g/dL (12-16)
[2018-07-18 16:26] LABS: INR 1.08 (0.85-1.17); PROTIME 13.5 SECONDS (11.6-15.0)
[2018-07-18 21:01] LABS: INR 1.03 (0.85-1.17)
[2018-07-19] VITALS (24 sets, daily range): BP systolic 103–171; BP diastolic 23–64; Ht 162.6 cm; Wt 68.6 kg
[2018-07-19 00:54] LABS: HEMOGLOBIN 10.5 g/dL (12-16)
[2018-07-19 01:04] LABS: INR 1.01 (0.85-1.17); PROTIME 12.8 SECONDS (11.6-15.0)
[2018-07-19 05:18] LABS: BASOPHILS 0 % (0-2); EOSINOPHILS 0.1 % (0-7); HEMATOCRIT 30.5 % (36.0-48.0); HEMOGLOBIN 10.6 g/dL (12-16); IMMATURE GRANULOCYTES 0.2 % (0-5); LYMPHOCYTES 6.9 % (15-50); MCHC 34.8 g/dL (31.0-37.0); MCV 83.3 fL (80.0-100.0); MEAN PLATELET VOLUME 10.3 fL (7.4-10.4); MONOCYTES 6.3 % (2-11); NEUTROPHILS 86.5 % (40-80); PLATELET COUNT 111 10x3/uL (130-400); RBC 3.66 10x6/uL (4.00-5.40); RDW 14.9 % (11.5-14.5); WBC 14.7 10x3/uL (4.8-10.8)
[2018-07-19 05:50] LABS: CARBON DIOXIDE 28.4 mmol/L (21.0-32.0); CHLORIDE - SERUM 100 mmol/L (98-107); CREATININE - SERUM 0.6 mg/dL (0.6-1.3); GLUCOSE 164 mg/dL (74-106); SODIUM 139 mmol/L (136-145); eGFR NON AFRICAN AMERICAN > 90 mL/min (90-120)
[2018-07-19 06:25] LABS: CALC OSMOLALITY 280 mosm/kg (275-300); UREA NITROGEN 11 mg/dL (7-18)
[2018-07-19 06:26] LABS: CALCIUM 6.6 mg/dL (8.5-10.1); POTASSIUM - SERUM 2.3 mmol/L (3.5-5.1)
[2018-07-19 09:02] LABS: HEMATOCRIT 26.6 % (36.0-48.0); HEMOGLOBIN 9.2 g/dL (12-16)
[2018-07-19 15:02] LABS: INR 0.98 (0.85-1.17); PROTIME 12.5 SECONDS (11.6-15.0)
[2018-07-19 16:59] LABS: HEMATOCRIT 28.6 % (36.0-48.0); HEMOGLOBIN 9.7 g/dL (12-16)
[2018-07-20] VITALS (25 sets, daily range): BP systolic 79–123; BP diastolic 40–62
[2018-07-20 01:11] LABS: HEMATOCRIT 28.4 % (36.0-48.0); HEMOGLOBIN 9.5 g/dL (12-16)
[2018-07-20 01:40] LABS: ALBUMIN 1.7 g/dL (3.4-5.0); ALKALINE PHOSPHATASE 50 U/L (46-116); ALT (SGPT) 30 U/L (10-68); BILIRUBIN - TOTAL 0.63 mg/dL (0.2-1.3); CARBON DIOXIDE 29.3 mmol/L (21.0-32.0); CHLORIDE - SERUM 107 mmol/L (98-107); CREATININE - SERUM 0.5 mg/dL (0.6-1.3); PROTEIN - SERUM 4.2 g/dL (6.4-8.2); SODIUM 137 mmol/L (136-145); UREA NITROGEN 13 mg/dL (7-18); eGFR NON AFRICAN AMERICAN > 90 mL/min (90-120)
[2018-07-20 01:46] LABS: CALC OSMOLALITY 273 mosm/kg (275-300); GLUCOSE 95 mg/dL (74-106)
[2018-07-20 01:47] LABS: CALCIUM 6.4 mg/dL (8.5-10.1); POTASSIUM - SERUM 3.9 mmol/L (3.5-5.1)
[2018-07-20 05:06] LABS: BASOPHILS 0.2 % (0-2); EOSINOPHILS 3.1 % (0-7); HEMATOCRIT 27.5 % (36.0-48.0); HEMOGLOBIN 9.1 g/dL (12-16); IMMATURE GRANULOCYTES 0.1 % (0-5); LYMPHOCYTES 11.4 % (15-50); MCH 29.6 pg (26.0-34.0); MCHC 33.1 g/dL (31.0-37.0); MEAN PLATELET VOLUME 10.7 fL (7.4-10.4); MONOCYTES 7.2 % (2-11); RBC 3.07 10x6/uL (4.00-5.40); RDW 15.9 % (11.5-14.5)
[2018-07-20 05:08] LABS: MCV 89.6 fL (80.0-100.0); PLATELET COUNT 84 10x3/uL (130-400); WBC 9.1 10x3/uL (4.8-10.8)
[2018-07-20 05:22] LABS: ALBUMIN 1.6 g/dL (3.4-5.0); ALKALINE PHOSPHATASE 51 U/L (46-116); ALT (SGPT) 28 U/L (10-68); BILIRUBIN - TOTAL 0.67 mg/dL (0.2-1.3); CALC OSMOLALITY 275 mosm/kg (275-300); CARBON DIOXIDE 29.1 mmol/L (21.0-32.0); CHLORIDE - SERUM 108 mmol/L (98-107); CREATININE - SERUM 0.4 mg/dL (0.6-1.3); GLUCOSE 96 mg/dL (74-106); POTASSIUM - SERUM 3.8 mmol/L (3.5-5.1); SODIUM 138 mmol/L (136-145); UREA NITROGEN 12 mg/dL (7-18); eGFR NON AFRICAN AMERICAN > 90 mL/min (90-120)
[2018-07-20 05:30] LABS: CALCIUM 6.8 mg/dL (8.5-10.1); MAGNESIUM - SERUM 1.4 mg/dL (1.8-2.4)
[2018-07-20 07:53] LABS: PLATELET ESTIMATE DECREASED
[2018-07-20 10:32] LABS: HEMATOCRIT 31.3 % (36.0-48.0); HEMOGLOBIN 10.4 g/dL (12-16)
[2018-07-20 17:50] LABS: HEMATOCRIT 32.9 % (36.0-48.0); HEMOGLOBIN 10.8 g/dL (12-16)
[2018-07-20 23:16] LABS: HEMATOCRIT 33.7 % (36.0-48.0); HEMOGLOBIN 10.8 g/dL (12-16)
[2018-07-20 23:24] LABS: APPEARANCE HAZY (CLEAR); COLOR YELLOW (YELLOW); NITRITE NEGATIVE (NEGATIVE); SPECIFIC GRAVITY 1.015 (1.005-1.020)
[2018-07-20 23:25] LABS: BILIRUBIN NEGATIVE (NEGATIVE); GLUCOSE NEGATIVE (NEGATIVE); KETONE NEGATIVE (NEGATIVE); PROTEIN TRACE mg/dL (NEGATIVE); UROBILINOGEN NORMAL (NORMAL)
[2018-07-20 23:30] LABS: BACTERIA MODERATE /hpf (NONE SEEN); EPITHELIAL CELLS 0-5 /hpf (0-5); RED CELLS - URINE 0-5 /hpf (0-5)
[2018-07-21] VITALS (24 sets, daily range): BP systolic 107–144; BP diastolic 57–89
[2018-07-21 05:48] LABS: BASOPHILS 0.3 % (0-2); EOSINOPHILS 4.9 % (0-7); HEMATOCRIT 33.6 % (36.0-48.0); HEMOGLOBIN 10.8 g/dL (12-16); IMMATURE GRANULOCYTES 0.2 % (0-5); LYMPHOCYTES 12.2 % (15-50); MCH 29.5 pg (26.0-34.0); MCHC 32.1 g/dL (31.0-37.0); MEAN PLATELET VOLUME 10.1 fL (7.4-10.4); MONOCYTES 8.5 % (2-11); NEUTROPHILS 73.9 % (40-80); RBC 3.66 10x6/uL (4.00-5.40); RDW 16.5 % (11.5-14.5)
[2018-07-21 05:50] LABS: MCV 91.8 fL (80.0-100.0); PLATELET COUNT 103 10x3/uL (130-400); WBC 6.5 10x3/uL (4.8-10.8)
[2018-07-21 06:56] LABS: CALC OSMOLALITY 289 mosm/kg (275-300); CALCIUM 7.2 mg/dL (8.5-10.1); CARBON DIOXIDE 25.2 mmol/L (21.0-32.0); CHLORIDE - SERUM 115 mmol/L (98-107); CREATININE - SERUM 0.5 mg/dL (0.6-1.3); GLUCOSE 104 mg/dL (74-106); MAGNESIUM - SERUM 1.7 mg/dL (1.8-2.4); POTASSIUM - SERUM 3.8 mmol/L (3.5-5.1); SODIUM 147 mmol/L (136-145); eGFR NON AFRICAN AMERICAN > 90 mL/min (90-120)
[2018-07-21 06:57] LABS: UREA NITROGEN 6 mg/dL (7-18)
[2018-07-21 09:55] LABS: HEMATOCRIT 33.7 % (36.0-48.0); HEMOGLOBIN 10.9 g/dL (12-16)
[2018-07-22] VITALS (17 sets, daily range): BP systolic 106–146; BP diastolic 61–101
[2018-07-22 05:21] LABS: BASOPHILS 0.1 % (0-2); EOSINOPHILS 3.3 % (0-7); HEMATOCRIT 34.5 % (36.0-48.0); HEMOGLOBIN 11.2 g/dL (12-16); IMMATURE GRANULOCYTES 0.6 % (0-5); LYMPHOCYTES 14.2 % (15-50); MCH 29.2 pg (26.0-34.0); MCHC 32.5 g/dL (31.0-37.0); MEAN PLATELET VOLUME 9.5 fL (7.4-10.4); MONOCYTES 9.7 % (2-11); NEUTROPHILS 72.1 % (40-80); RBC 3.84 10x6/uL (4.00-5.40); RDW 15.9 % (11.5-14.5); WBC 6.7 10x3/uL (4.8-10.8)
[2018-07-22 05:23] LABS: MCV 89.8 fL (80.0-100.0); PLATELET COUNT 150 10x3/uL (130-400)
[2018-07-22 05:27] LABS: CALC OSMOLALITY 284 mosm/kg (275-300); CALCIUM 7.1 mg/dL (8.5-10.1); CARBON DIOXIDE 28.3 mmol/L (21.0-32.0); CHLORIDE - SERUM 110 mmol/L (98-107); CREATININE - SERUM 0.5 mg/dL (0.6-1.3); GLUCOSE 97 mg/dL (74-106); MAGNESIUM - SERUM 1.4 mg/dL (1.8-2.4); POTASSIUM - SERUM 3.2 mmol/L (3.5-5.1); SODIUM 145 mmol/L (136-145); UREA NITROGEN 2 mg/dL (7-18); eGFR NON AFRICAN AMERICAN > 90 mL/min (90-120)
[2018-07-23 03:00] VITALS: BP 134/82
[2018-07-23 05:22] LABS: BASOPHILS 0.2 % (0-2); EOSINOPHILS 3.9 % (0-7); HEMATOCRIT 34.8 % (36.0-48.0); HEMOGLOBIN 11.7 g/dL (12-16); IMMATURE GRANULOCYTES 0.7 % (0-5); LYMPHOCYTES 15.4 % (15-50); MCH 29.9 pg (26.0-34.0); MCHC 33.6 g/dL (31.0-37.0); MEAN PLATELET VOLUME 9.2 fL (7.4-10.4); MONOCYTES 13.1 % (2-11); NEUTROPHILS 66.7 % (40-80); PLATELET COUNT 182 10x3/uL (130-400); RBC 3.91 10x6/uL (4.00-5.40); RDW 15.7 % (11.5-14.5); WBC 5.9 10x3/uL (4.8-10.8)
[2018-07-23 05:36] LABS: CALC OSMOLALITY 278 mosm/kg (275-300); CALCIUM 7.2 mg/dL (8.5-10.1); CARBON DIOXIDE 31.2 mmol/L (21.0-32.0); CHLORIDE - SERUM 106 mmol/L (98-107); CREATININE - SERUM 0.4 mg/dL (0.6-1.3); GLUCOSE 99 mg/dL (74-106); MAGNESIUM - SERUM 1.4 mg/dL (1.8-2.4); POTASSIUM - SERUM 3.2 mmol/L (3.5-5.1); SODIUM 142 mmol/L (136-145); UREA NITROGEN 2 mg/dL (7-18); eGFR NON AFRICAN AMERICAN > 90 mL/min (90-120)
[2018-07-23 21:08] VITALS: BP 132/56
[2018-07-24 05:03] VITALS: BP 131/68
[2018-07-24 05:38] LABS: BASOPHILS 0.4 % (0-2); EOSINOPHILS 4.3 % (0-7); HEMATOCRIT 37.5 % (36.0-48.0); HEMOGLOBIN 12.2 g/dL (12-16); IMMATURE GRANULOCYTES 0.6 % (0-5); LYMPHOCYTES 21.7 % (15-50); MCH 29.3 pg (26.0-34.0); MCHC 32.5 g/dL (31.0-37.0); MCV 89.9 fL (80.0-100.0); MEAN PLATELET VOLUME 9.1 fL (7.4-10.4); MONOCYTES 17.4 % (2-11); NEUTROPHILS 55.6 % (40-80); RBC 4.17 10x6/uL (4.00-5.40); RDW 15.7 % (11.5-14.5); WBC 4.7 10x3/uL (4.8-10.8)
[2018-07-24 05:49] LABS: PLATELET COUNT 230 10x3/uL (130-400)
[2018-07-24 06:03] LABS: CALC OSMOLALITY 275 mosm/kg (275-300); CALCIUM 7.5 mg/dL (8.5-10.1); CARBON DIOXIDE 28.2 mmol/L (21.0-32.0); CHLORIDE - SERUM 107 mmol/L (98-107); CREATININE - SERUM 0.5 mg/dL (0.6-1.3); GLUCOSE 86 mg/dL (74-106); MAGNESIUM - SERUM 1.3 mg/dL (1.8-2.4); POTASSIUM - SERUM 3.5 mmol/L (3.5-5.1); SODIUM 141 mmol/L (136-145); UREA NITROGEN 2 mg/dL (7-18); eGFR NON AFRICAN AMERICAN > 90 mL/min (90-120)
[2018-07-24 08:43] VITALS: BP 114/57
[2018-07-24 12:38] VITALS: BP 121/64
[2018-07-24 16:50] VITALS: BP 120/63
[2018-07-24 20:47] VITALS: BP 114/61
[2018-07-25 01:01] VITALS: BP 124/64
[2018-07-25 05:01] VITALS: BP 128/56
[2018-07-25 05:34] LABS: BASOPHILS 1.5 % (0-2); EOSINOPHILS 4.3 % (0-7); HEMATOCRIT 38.9 % (36.0-48.0); HEMOGLOBIN 12.5 g/dL (12-16); IMMATURE GRANULOCYTES 0.5 % (0-5); LYMPHOCYTES 26.6 % (15-50); MCH 29.8 pg (26.0-34.0); MCHC 32.1 g/dL (31.0-37.0); MONOCYTES 17.6 % (2-11); NEUTROPHILS 49.5 % (40-80); RBC 4.19 10x6/uL (4.00-5.40); RDW 16.5 % (11.5-14.5); WBC 3.9 10x3/uL (4.8-10.8)
[2018-07-25 05:35] LABS: MCV 92.8 fL (80.0-100.0); PLATELET COUNT 115 10x3/uL (130-400)
[2018-07-25 07:01] LABS: ALBUMIN 2.2 g/dL (3.4-5.0); ALKALINE PHOSPHATASE 101 U/L (46-116); ALT (SGPT) 39 U/L (10-68); BILIRUBIN - TOTAL 0.39 mg/dL (0.2-1.3); CALC OSMOLALITY 280 mosm/kg (275-300); CALCIUM 7.8 mg/dL (8.5-10.1); CHLORIDE - SERUM 108 mmol/L (98-107); CREATININE - SERUM 0.6 mg/dL (0.6-1.3); GLUCOSE 80 mg/dL (74-106); POTASSIUM - SERUM 4.1 mmol/L (3.5-5.1); PROTEIN - SERUM 4.9 g/dL (6.4-8.2); SODIUM 143 mmol/L (136-145); UREA NITROGEN 4 mg/dL (7-18); eGFR NON AFRICAN AMERICAN > 90 mL/min (90-120)
[2018-07-25 08:45] VITALS: BP 133/54
[2018-07-25 13:07] VITALS: BP 129/66
[2018-07-25 17:30] VITALS: BP 138/95
[2018-07-25 21:03] VITALS: BP 111/56
[2018-07-26 00:52] VITALS: BP 117/61
[2018-07-26 05:11] LABS: ALKALINE PHOSPHATASE 92 U/L (46-116); ALT (SGPT) 30 U/L (10-68); BILIRUBIN - TOTAL 0.35 mg/dL (0.2-1.3); CALC OSMOLALITY 281 mosm/kg (275-300); CALCIUM 7.6 mg/dL (8.5-10.1); CARBON DIOXIDE 26.1 mmol/L (21.0-32.0); CHLORIDE - SERUM 110 mmol/L (98-107); CREATININE - SERUM 0.5 mg/dL (0.6-1.3); GLUCOSE 93 mg/dL (74-106); POTASSIUM - SERUM 3.9 mmol/L (3.5-5.1); PROTEIN - SERUM 4.6 g/dL (6.4-8.2); SODIUM 143 mmol/L (136-145); UREA NITROGEN 5 mg/dL (7-18); eGFR NON AFRICAN AMERICAN > 90 mL/min (90-120)
[2018-07-26 05:57] VITALS: BP 137/72
[2018-07-26 08:15] VITALS: BP 121/58
[2018-07-26 08:22] LABS: HEMATOCRIT 36.9 % (36.0-48.0); MCH 29.6 pg (26.0-34.0); MCHC 32.5 g/dL (31.0-37.0); MCV 90.9 fL (80.0-100.0); MEAN PLATELET VOLUME 8.7 fL (7.4-10.4); RBC 4.06 10x6/uL (4.00-5.40); WBC 4.1 10x3/uL (4.8-10.8)
[2018-07-26 08:43] LABS: PLATELET COUNT 287 10x3/uL (130-400)
[2018-07-26 09:12] LABS: EOSINOPHILS 5 % (0-7); LYMPHOCYTES 26 % (15-50); MONOCYTES 16 % (2-11); NEUTROPHILS 52 % (40-80); PLATELET ESTIMATE NORMAL
[2018-07-26 13:25] VITALS: BP 153/77
[2018-07-26] MEDS ORDERED: PROTONIX40 MG PO (17:13)
== END 2018-07-26 18:46 | disposition home or self-care (01) | DRG 981 ==
LOC: D.ER 05:07 → D.ICU 06:40 → D.EDHOLD 06:40 → D.ICU 07:07 → D.MS 07-23 17:48
PROVIDERS: Emergency Medicine; Family Medicine; Internal Medicine Gastroenterology; Internal Medicine Nephrology; Internal Medicine Pulmonary Disease; Radiology Diagnostic Radiology; Student in an Organized Health Care Education/Training Program
PROC: 0DJ08ZZ Inspection of Upper Intestinal Tract, Via Natural or Artificial Opening Endoscopic (ICD-10-PCS; 2018-07-16)
PROC: 5A1945Z Respiratory Ventilation, 24-96 Consecutive Hours (ICD-10-PCS; 2018-07-17)
PROC: 0BH17EZ Insertion of Endotracheal Airway into Trachea, Via Natural or Artificial Opening (ICD-10-PCS; 2018-07-17)
PROC: 04V23DZ Restriction of Gastric Artery with Intraluminal Device, Percutaneous Approach (ICD-10-PCS; principal; 2018-07-17 12:30)
DX: K92.2 Gastrointestinal hemorrhage, unspecified (principal); R57.1 Hypovolemic shock; J96.00 Acute respiratory failure, unspecified whether with hypoxia or hypercapnia; D62 Acute posthemorrhagic anemia; E46 Unspecified protein-calorie malnutrition; N39.0 Urinary tract infection, site not specified; R55 Syncope and collapse; D50.9 Iron deficiency anemia, unspecified; F41.8 Other specified anxiety disorders; R53.81 Other malaise; G20 Parkinson's disease; K92.1 Melena; G72.89 Other specified myopathies; E87.6 Hypokalemia; Z85.41 Personal history of malignant neoplasm of cervix uteri; R41.82 Altered mental status, unspecified; K20.9 Esophagitis, unspecified; B96.5 Pseudomonas (aeruginosa) (mallei) (pseudomallei) as the cause of diseases classified elsewhere

== ENCOUNTER 2020-02-11 10:05 | Emergency (ER) | payer OTHER, MEDICARE ==
[~2020-02-11] VITALS: Ht 162.6 cm; Wt 68.2 kg
[2020-02-11 10:14] VITALS: Ht 162.6 cm; Wt 68.2 kg
[2020-02-11 10:40] LABS: HEMOGLOBIN 14.4 g/dL (12-16); LYMPHOCYTES 23.6 % (15-50); MCH 31.4 pg (26.0-34.0); MCHC 32.7 g/dL (31.0-37.0); MCV 95.9 fL (80.0-100.0); MEAN PLATELET VOLUME 8.9 fL (7.4-10.4); NEUTROPHILS 66.6 % (40-80); PLATELET COUNT 318 10x3/uL (130-400); RBC 4.59 10x6/uL (4.00-5.40); RDW 14.8 % (11.5-14.5); WBC 8.3 10x3/uL (4.8-10.8)
[2020-02-11 10:48] LABS: CALC OSMOLALITY 277 mosm/kg (275-300); CARBON DIOXIDE 19.9 mmol/L (21.0-32.0); CHLORIDE - SERUM 103 mmol/L (98-107); CREATININE - SERUM 0.7 mg/dL (0.6-1.3); SODIUM 137 mmol/L (136-145); UREA NITROGEN 16 mg/dL (7-18); eGFR NON AFRICAN AMERICAN 88 mL/min (90-120)
[2020-02-11 10:49] LABS: GLUCOSE 147 mg/dL (74-106)
[2020-02-11 10:57] LABS: ALBUMIN 3.7 g/dL (3.4-5.0); ALKALINE PHOSPHATASE 151 U/L (30-120); ALT (SGPT) 19 U/L (10-68); AMYLASE - SERUM 50 U/L (25-115); BILIRUBIN - TOTAL 0.65 mg/dL (0.2-1.3); LIPASE 129 U/L (73-393); PROTEIN - SERUM 7.1 g/dL (6.4-8.2); TROPONIN-I < 0.017 ng/mL (0.000-0.060)
[2020-02-11] MEDS ORDERED: ZOFRAN ODT4 MG/UDTAB PO (12:54)
[2020-02-11 14:08] LABS: BILIRUBIN NEGATIVE (NEGATIVE); GLUCOSE NEGATIVE (NEGATIVE); KETONE SMALL mg/dL (NEGATIVE); NITRITE NEGATIVE (NEGATIVE); SPECIFIC GRAVITY 1.005 (1.005-1.020); UROBILINOGEN NORMAL (NORMAL)
[2020-02-11 14:10] LABS: BACTERIA FEW /hpf (NEGATIVE); RED CELLS - URINE OCC /hpf (0-5); WHITE CELLS - URINE 0-5 /hpf (NEGATIVE)
[2020-02-11] MEDS ORDERED: KEFLEX500 MG PO (14:18)
[2020-02-11] MEDS ORDERED: MACROBID100 MG PO (14:18)
[2020-02-11 15:45] VITALS: BP 124/83
== END 2020-02-11 16:07 | disposition home or self-care (01) ==
LOC: D.ER 10:05
PROVIDERS: Emergency Medicine
DX: R11.2 Nausea with vomiting, unspecified (principal); R19.7 Diarrhea, unspecified; R10.13 Epigastric pain; N39.0 Urinary tract infection, site not specified; G20 Parkinson's disease; R10.9 Unspecified abdominal pain

== ENCOUNTER 2020-02-14 10:15 | Emergency (ER) | payer OTHER, MEDICARE ==
[~2020-02-14] VITALS: Ht 162.6 cm; Wt 68.2 kg
[2020-02-14 10:20] VITALS: Ht 162.6 cm; Wt 68.2 kg
[2020-02-14] MEDS ORDERED: TRAZODONE HCL150 MG PO (10:23)
[2020-02-14 11:26] LABS: BACTERIA FEW /hpf (NEGATIVE); BILIRUBIN NEGATIVE (NEGATIVE); EPITHELIAL CELLS 0-5 /hpf (0-5); GLUCOSE 50 mg/dL (NEGATIVE); KETONE LARGE mg/dL (NEGATIVE); NITRITE NEGATIVE (NEGATIVE); RED CELLS - URINE 0-5 /hpf (0-5); SPECIFIC GRAVITY 1.025 (1.005-1.020); WHITE CELLS - URINE OCC /hpf (NEGATIVE)
[2020-02-14 12:55] VITALS: BP 133/95
[2020-02-15] MEDS ORDERED: SEROQUEL200 MG PO (17:25)
[2020-02-15] MEDS ORDERED: KEFLEX500 MG PO (17:26)
== END 2020-02-14 13:00 | disposition home or self-care (01) ==
LOC: D.ER 10:15
PROVIDERS: Family Medicine
DX: K59.00 Constipation, unspecified (principal); R10.9 Unspecified abdominal pain; R11.0 Nausea

== ENCOUNTER 2020-02-15 16:57 | Inpatient (IN) | payer OTHER, MEDICARE ==
[~2020-02-15] VITALS: Ht 162.6 cm; Wt 65.8 kg
[~2020-02-15 16:57] MED LIST changes: +TRAZODONE HCL150 MG PO
[2020-02-15] MEDS ORDERED: SEROQUEL200 MG PO (17:25)
[2020-02-15] MEDS ORDERED: KEFLEX500 MG PO (17:26)
[2020-02-15 17:28] VITALS: BMI 24.9
--- NOTE | 2020-02-15 18:03 | NUR ---
PATIENT ADMITTED TO ROOM 2217. ADMISSION COMPLETE. IV SITED TO LEFT WRIST AFTER ONE ATTEMPT WITH 22 GAUGE. WAITING CALL BACK FROM MD MULTIPLEX OPERATOR FOR ORDERS.
--- NOTE | 2020-02-15 18:27 | NUR ---
MICHELLE ROA PAGED TWICE WITH NO CALL BACK.
[2020-02-15 20:00] VITALS: BP 144/75
[2020-02-15 20:14] LABS: BASOPHILS 0.1 % (0-2); EOSINOPHILS 0 % (0-7); HEMATOCRIT 38.7 % (36.0-48.0); HEMOGLOBIN 13.1 g/dL (12-16); IMMATURE GRANULOCYTES 0.3 % (0-5); LYMPHOCYTES 13.2 % (15-50); MCH 31.5 pg (26.0-34.0); MCHC 33.9 g/dL (31.0-37.0); MEAN PLATELET VOLUME 9.1 fL (7.4-10.4); MONOCYTES 9.4 % (2-11); PLATELET COUNT 258 10x3/uL (130-400); RBC 4.16 10x6/uL (4.00-5.40); RDW 13.8 % (11.5-14.5); WBC 9.4 10x3/uL (4.8-10.8)
[2020-02-15 20:23] LABS: APTT 29.2 SECONDS (22.8-39.4); INR 0.97 (0.85-1.17); PROTIME 12.9 SECONDS (11.6-15.0)
[2020-02-15 20:25] LABS: D-DIMER-QUANTITATIVE < 0.27 ug/mLFEU (0.20-0.54)
[2020-02-15 20:38] LABS: ALBUMIN 3.7 g/dL (3.4-5.0); ANION GAP 15.3 mmol/L (8-16); BILIRUBIN - TOTAL 0.78 mg/dL (0.2-1.3); CALCIUM 8.5 mg/dL (8.5-10.1); CARBON DIOXIDE 24.9 mmol/L (21.0-32.0); CREATININE - SERUM 0.9 mg/dL (0.6-1.3); MAGNESIUM - SERUM 1.6 mg/dL (1.8-2.4); POTASSIUM - SERUM 3.2 mmol/L (3.5-5.1); PROTEIN - SERUM 6.6 g/dL (6.4-8.2)
[2020-02-15 21:58] LABS: BILIRUBIN NEGATIVE (NEGATIVE); GLUCOSE NEGATIVE (NEGATIVE); KETONE MODERATE mg/dL (NEGATIVE); NITRITE NEGATIVE (NEGATIVE); UROBILINOGEN NORMAL (NORMAL)
[2020-02-16] VITALS: BP 117/62
--- NOTE | 2020-02-16 03:44 | NUR ---
I have reviewed this patient and I concur with the Shift Assessment completed by the Licensed Practical Nurse today this shift.
[2020-02-16 04:00] VITALS: BP 106/62
[2020-02-16 06:45] LABS: BASOPHILS 0.3 % (0-2); EOSINOPHILS 0.5 % (0-7); HEMATOCRIT 37.4 % (36.0-48.0); HEMOGLOBIN 12.4 g/dL (12-16); IMMATURE GRANULOCYTES 0.3 % (0-5); LYMPHOCYTES 18.9 % (15-50); MCH 31.2 pg (26.0-34.0); MCHC 33.2 g/dL (31.0-37.0); MCV 94.2 fL (80.0-100.0); MEAN PLATELET VOLUME 9.3 fL (7.4-10.4); MONOCYTES 13.2 % (2-11); NEUTROPHILS 66.8 % (40-80); PLATELET COUNT 235 10x3/uL (130-400); RBC 3.97 10x6/uL (4.00-5.40); WBC 7.6 10x3/uL (4.8-10.8)
[2020-02-16 06:59] LABS: ALBUMIN 3.1 g/dL (3.4-5.0); ALKALINE PHOSPHATASE 122 U/L (30-120); ALT (SGPT) 21 U/L (10-68); BILIRUBIN - TOTAL 0.68 mg/dL (0.2-1.3); CALC OSMOLALITY 276 mosm/kg (275-300); CALCIUM 8.4 mg/dL (8.5-10.1); CARBON DIOXIDE 23.2 mmol/L (21.0-32.0); CHLORIDE - SERUM 103 mmol/L (98-107); CREATININE - SERUM 0.7 mg/dL (0.6-1.3); GLUCOSE 86 mg/dL (74-106); MAGNESIUM - SERUM 1.8 mg/dL (1.8-2.4); POTASSIUM - SERUM 3.1 mmol/L (3.5-5.1); PROTEIN - SERUM 5.8 g/dL (6.4-8.2); SODIUM 138 mmol/L (136-145); UREA NITROGEN 17 mg/dL (7-18); eGFR NON AFRICAN AMERICAN 88 mL/min (90-120)
--- NOTE | 2020-02-16 07:18 | NUR ---
PT IS RESTING IN BED WITH EYES CLOSED. RESPIRATIONS ARE EVEN AND UNLABORED. PT IS EASILY AROUSED WITH VERBAL STIMULATION. PT IS AAO X 4 UPON AROUSAL. PT REPORTS ABDOMINAL DISCOMFORT AND PAIN. WILL ADDRESS. SEE EMAR. PT DENIES PRESENCE OF DYSPNEA/SOB AT THIS TIME. PIV INFUSING TO LEFT WRIST PER ORDER WITHOUT DIFFICULTY. PT ENCOURAGED TO TCDB. BED IS IN THE LOWEST POSITION. CALL LIGHT AND BEDSIDE TABLE ARE WITHIN REACH. SIDE RAILS X 2. PT DENIES FURTHER NEEDS. WILL CONT TO MONITOR.
[2020-02-16 09:41] VITALS: BP 143/72
[2020-02-16 13:45] VITALS: BP 129/66
[2020-02-16 13:59] VITALS: BMI 24.9
[2020-02-16 16:00] VITALS: BP 157/74
[2020-02-16 19:49] VITALS: Ht 162.6 cm; Wt 65.8 kg
[2020-02-16 20:00] VITALS: BP 115/52
[2020-02-17] VITALS: BP 115/63
[2020-02-17 04:00] VITALS: BP 136/64
[2020-02-17 05:02] LABS: BASOPHILS 0.3 % (0-2); EOSINOPHILS 1.1 % (0-7); HEMATOCRIT 37.1 % (36.0-48.0); HEMOGLOBIN 12.2 g/dL (12-16); IMMATURE GRANULOCYTES 0.6 % (0-5); LYMPHOCYTES 23.1 % (15-50); MCH 31.5 pg (26.0-34.0); MCHC 32.9 g/dL (31.0-37.0); MCV 95.9 fL (80.0-100.0); MEAN PLATELET VOLUME 9.3 fL (7.4-10.4); NEUTROPHILS 62.9 % (40-80); PLATELET COUNT 233 10x3/uL (130-400); RBC 3.87 10x6/uL (4.00-5.40); RDW 14.1 % (11.5-14.5); WBC 6.6 10x3/uL (4.8-10.8)
[2020-02-17 05:12] LABS: ALKALINE PHOSPHATASE 113 U/L (30-120); ALT (SGPT) 20 U/L (10-68); BILIRUBIN - TOTAL 1.04 mg/dL (0.2-1.3); CALC OSMOLALITY 273 mosm/kg (275-300); CARBON DIOXIDE 23.3 mmol/L (21.0-32.0); CHLORIDE - SERUM 105 mmol/L (98-107); CREATININE - SERUM 0.8 mg/dL (0.6-1.3); GLUCOSE 72 mg/dL (74-106); MAGNESIUM - SERUM 2.2 mg/dL (1.8-2.4); PROTEIN - SERUM 5.6 g/dL (6.4-8.2); SODIUM 137 mmol/L (136-145); UREA NITROGEN 14 mg/dL (7-18); eGFR NON AFRICAN AMERICAN 76 mL/min (90-120)
[2020-02-17 05:14] LABS: POTASSIUM - SERUM 4.3 mmol/L (3.5-5.1)
[2020-02-17 08:45] VITALS: BP 118/70; BP 120/68
--- NOTE | 2020-02-17 11:30 | NUR ---
PT A&O X4. PIV IN LEFT WRIST, PATENT AND NON-TENDER. PT BOWEL SOUNDS HYPOACTIVE X4. ABD TENDER. PT STATES THAT HER STOMACH IS FEELING MUCH BETTER COMPARED TO LAST NIGHT, NO NAUSEA. PT HAS ISP IN ROOM AND VERBALIZED UNDERSTANDING OF USE. EDUCATED PT ON NEW DIET PLAN, SLOWLY INTRODUCING SOFT BLAND FOODS. PT VERBALIZED UNDERSTANDING. PT DENIES FURTHER NEEDS. BED LOW, RAILS X2. CL IN REACH. WILL CONTINUE TO MONITOR.
[2020-02-17 13:15] VITALS: BP 111/98
[2020-02-17 17:46] VITALS: BP 138/63
[2020-02-17 20:00] VITALS: BP 133/63
[2020-02-18] VITALS: BP 103/54
[2020-02-18 04:00] VITALS: BP 113/45
[2020-02-18 06:00] LABS: BASOPHILS 0.3 % (0-2); EOSINOPHILS 1.3 % (0-7); HEMATOCRIT 36.2 % (36.0-48.0); HEMOGLOBIN 12.1 g/dL (12-16); IMMATURE GRANULOCYTES 0.3 % (0-5); LYMPHOCYTES 21.5 % (15-50); MCH 31.4 pg (26.0-34.0); MCHC 33.4 g/dL (31.0-37.0); MEAN PLATELET VOLUME 9.6 fL (7.4-10.4); NEUTROPHILS 63.6 % (40-80); PLATELET COUNT 247 10x3/uL (130-400); RBC 3.85 10x6/uL (4.00-5.40)
[2020-02-18 06:14] LABS: BILIRUBIN - TOTAL 1.09 mg/dL (0.2-1.3); CARBON DIOXIDE 27.2 mmol/L (21.0-32.0); CREATININE - SERUM 0.9 mg/dL (0.6-1.3); PROTEIN - SERUM 5.5 g/dL (6.4-8.2)
[2020-02-18 06:20] LABS: MAGNESIUM - SERUM 1.6 mg/dL (1.8-2.4); POTASSIUM - SERUM 3.2 mmol/L (3.5-5.1)
[2020-02-18 08:59] VITALS: BP 119/64
[2020-02-18 12:10] VITALS: BP 118/57
[2020-02-18] MEDS ORDERED: CARAFATE1 G PO (12:18)
[2020-02-18] MEDS ORDERED: K-TAB10 MEQ PO (12:18)
[2020-02-18] MEDS ORDERED: PROTONIX40 MG PO (12:18)
[2020-02-18] MEDS ORDERED: OMEPRAZOLE40 MG PO (14:07)
== END 2020-02-18 15:32 | disposition home or self-care (01) | DRG 390 ==
LOC: OBSVTIME 16:57 → D.MS 16:57
PROVIDERS: ADMIT Family Medicine; ATTEND Family Medicine
DX: K56.609 Unspecified intestinal obstruction, unspecified as to partial versus complete obstruction (principal); G20 Parkinson's disease; F41.8 Other specified anxiety disorders; G43.909 Migraine, unspecified, not intractable, without status migrainosus; G47.00 Insomnia, unspecified; E55.9 Vitamin D deficiency, unspecified; Z98.84 Bariatric surgery status; Z86.73 Personal history of transient ischemic attack (TIA), and cerebral infarction without residual deficits

== ENCOUNTER 2020-11-07 04:55 | Emergency (ER) | payer OTHER, MEDICARE ==
[~2020-11-07] VITALS: Ht 162.6 cm; Wt 65.9 kg
[~2020-11-07 04:55] MED LIST changes: +CARAFATE1 G PO; +K-TAB10 MEQ PO; +OMEPRAZOLE40 MG PO; +SEROQUEL200 MG PO
[2020-11-07 04:59] VITALS: Ht 162.6 cm; Wt 65.9 kg
[2020-11-07] MEDS ORDERED: PROTONIX40 MG PO (05:05)
[2020-11-07 05:45] LABS: BILIRUBIN NEGATIVE (NEGATIVE); KETONE MODERATE mg/dL (NEGATIVE); NITRITE POSITIVE (NEGATIVE); UROBILINOGEN NORMAL mg/dL (< 2)
[2020-11-07 05:46] LABS: BACTERIA MANY HPF (NONE SEEN); SQUAMOUS EPITHELIAL 0-5 HPF (0-4)
[2020-11-07] MEDS ORDERED: OMNICEF300 MG PO (06:46)
[2020-11-07 07:10] VITALS: BP 107/59
== END 2020-11-07 07:10 | disposition home or self-care (01) ==
LOC: D.ER 04:55
PROVIDERS: Family Medicine
DX: G43.909 Migraine, unspecified, not intractable, without status migrainosus (principal); N39.0 Urinary tract infection, site not specified